=== PATIENT | female | born 1930 | race Caucasian/White ===

== ENCOUNTER 2016-09-11 22:23 | Inpatient (IN) | payer MEDICARE ==
[~2016-09-11] VITALS: Ht 152.4 cm; Wt 75.3 kg
[~2016-09-11 22:23] MED LIST: ACET500T33 PO; ALBU0.63 NEB; AMLO5TAB2 PO; AMLO5TAB4 PO; ASPI81TA2 PO; ASPI81TA44 PO; BUME1TAB PO; CALC500T50 PO; CEPH-264 PO; CIPR250T PO; CYCL10TA2 PO; CYCL5TAB PO; Cefpodoxime Proxetil PO; DIPH25CA58 PO; ERGO500012 PO; FURO-68 PO; FURO40TA4 PO; HUM100VI SQ; HUM100VI5 SQ; HYDR-2666 PO; HYDR-2762 PO; HYDR-971 PO; INSU100I16 SQ; ISOS30TA PO; ISOS30TA4 PO; LIDO700A4 TP; LISI10TA2 PO; MULT-245 PO; MULT-658 PO; NITR0.4T SL; NITR0.4T6 SL; NYST15CR2 TP; OMEG-32 PO; OMEG500C PO; OMEP20CA5 PO; OMEP40CA2 PO; POTA10CA PO; POTA10TA10 PO; PRAV20TA2 PO; PRAV40TA PO; Polyethylene Glycol 3350 PO; SERT25TA4 PO; TIOT18CA IH; [UNRECOGNIZED DRUG - OTHER]; insulin; lidocaine patch
[2016-09-11] MEDS ORDERED: IPRATRPIUM/ALBUTEROL 0.5/2.5MG 3 ML NEBU. NEB ONE (22:45)
--- NOTE | 2016-09-11 23:07 | PHYS DOC ---
Past Medical History Past Medical History: CHF, Diabetes-Type II, Hypertension Past Surgical History: Cholecystectomy, Coronary Bypass Surgery, Hysterectomy, Pacemaker, Other Additional Past Surgical Histo: bilateral carotids Alcohol Use: None Drug Use: Other Adult General Chief Complaint Chief Complaint: HYPOGLYCEMIA HPI HPI Patient is a 86 year old female who presents with hypoglycemia. Patient arrives via EMS after a hypoglycemic episode at home. Patient was significantly better after the amp of D50. Patient has recent problems with left lower extremity cellulitis. She's been on Bactrim for 6 days with minimal improvement of left lower leg cellulitis. Patient also has had increased respiratory distress over the last couple of days. She has a known history of lung cancer however she has had audible wheezing for the last day. Normally the patient does not require supplemental oxygen except for times of extreme exertion. For the last couple of days she's been wearing her supplemental oxygen 24 hours a day. Per the family the patient's sats approximately 84% while sitting in a chair she does not have oxygen on at 1 L nasal cannula. Patient denies any sort of fevers or chills. Pt had a recent fall and c/o right shoulder and right chestwall pain. Past history of congestive heart failure, lung cancer, diabetes , coronary artery disease and total abdominal hysterectomy. Review of Systems Review of Systems Constitutional: Denies fever or chills Eyes: Denies change in visual acuity, redness, or eye pain HENT: Denies nasal congestion or sore throat Respiratory: Positive cough and shortness of breath Cardiovascular: No chest pain or palpitations GI: Denies abdominal pain, nausea, vomiting, bloody stools or diarrhea : Denies dysuria or hematuria Musculoskeletal: Denies new back pain or joint pain Integument: Cellulitis left leg Neurologic: Denies headache, focal weakness or sensory changes Endocrine: Denies polyuria or polydipsia Current Medications Current Medications Current Medications Medications (Trade) Dose Ordered Sig/Leonard Start Time Stop Time Status Last Admin Dose Admin Albuterol/ Ipratropium (Duoneb) 3 ml PRN Q4HRS PRN 09/12/16 00:45 09/12/16 06:00 Albuterol/ Ipratropium 3 ml 3 ml 1X ONCE 09/11/16 22:45 09/11/16 22:46 DC 09/11/16 22:40 3 ML Levofloxacin/ Dextrose (LEVAQUIN 750mg PREMIX) 150 ml @ 100 mls/hr 1X ONCE 09/12/16 01:00 09/12/16 02:29 Allergies Allergies Allergies Coded Allergies Type Severity Reaction Last Updated Verified Penicillins Allergy Intermediate hives 08/10/15 Yes adhesive tape Allergy Intermediate Rash 12/15/15 Yes aspirin Adverse Reaction Intermediate bloody nose 12/15/15 Yes morphine Adverse Reaction Intermediate nausea and vomiting 08/10/15 No Physical Exam Physical Exam Constitutional: Well developed, well nourished, moderate acute distress, non- toxic appearance. HENT: Normocephalic, atraumatic, oropharynx dry, no oral exudates, nose normal. Eyes: PERRLA, EOMI, conjunctiva normal, no discharge. Neck: Normal range of motion, no tenderness, supple. Cardiovascular:Heart rate regular rhythm, no murmur Lungs & Thorax: Bilateral expiratory wheezing, no rales Abdomen: Bowel sounds hyperactive, soft, no tenderness, no masses, no pulsatile masses. Skin: Warm, dry, cellulitis left lower extremity Extremities: Left distal calf and foot tenderness, no cyanosis, 2+ left pedal edema. Neurologic: Alert and oriented X 3, normal motor function, normal sensory function, no focal deficits noted. Psychologic: Affect normal, judgement normal, mood normal. Current Patient Data Vital Signs Vital Signs Date Time Temp Pulse Resp B/P Pulse Ox O2 Delivery O2 Flow Rate FiO2 09/11/16 22:40 94 Nasal Cannula 2.0 09/11/16 22:30 97.7 75 27 176/76 97.7 Lab Values Laboratory Tests Test 09/11/16 23:03 09/11/16 23:05 Glucose (Fingerstick) 96mg/dL (70-99) White Blood Count 5.5x10^3/uL (4.0-11.0) Red Blood Count 3.67x10^6/uL (3.50-5.40) Hemoglobin 11.4g/dL (12.0-15.5) L Hematocrit 35.4% (36.0-47.0) L Mean Corpuscular Volume 97fL (79-100) Mean Corpuscular Hemoglobin 31pg (25-35) Mean Corpuscular Hemoglobin Concent 32g/dL (31-37) Red Cell Distribution Width 14.7% (11.5-14.5) H Platelet Count 116x10^3/uL (140-400) L Neutrophils (%) (Auto) 76% (31-73) H Lymphocytes (%) (Auto) 15% (24-48) L Monocytes (%) (Auto) 7% (0-9) Eosinophils (%) (Auto) 1% (0-3) Basophils (%) (Auto) 0% (0-3) Neutrophils # (Auto) 4.2x10^3uL (1.8-7.7) Lymphocytes # (Auto) 0.8x10^3/uL (1.0-4.8) L Monocytes # (Auto) 0.4x10^3/uL (0.0-1.1) Eosinophils # (Auto) 0.1x10^3/uL (0.0-0.7) Basophils # (Auto) 0.0x10^3/uL (0.0-0.2) D-Dimer (Salena) 1.73ug/mlFEU (0.00-0.50) H Sodium Level 142mmol/L (136-145) Potassium Level 5.6mmol/L (3.5-5.1) H Chloride Level 103mmol/L (98-107) Carbon Dioxide Level 29mmol/L (21-32) Anion Gap 10 (6-14) Blood Urea Nitrogen 41mg/dL (7-20) H Creatinine 1.8mg/dL (0.6-1.0) H Estimated GFR (Cockcroft-Gault) 26.6 BUN/Creatinine Ratio 23 (6-20) H Glucose Level 109mg/dL (70-99) H Lactic Acid Level 2.2mmol/L (0.4-2.0) H Calcium Level 9.1mg/dL (8.5-10.1) Total Bilirubin 0.5mg/dL (0.2-1.0) Aspartate Amino Transferase (AST) 31U/L (15-37) Alanine Aminotransferase (ALT) 14U/L (14-59) Alkaline Phosphatase 113U/L (46-116) Troponin I Quantitative 0.049ng/mL (0.000-0.055) BD-Icy-X-Type Natriuretic Peptide 6614pg/mL (0-449) H Total Protein 7.1g/dL (6.4-8.2) Albumin 3.3g/dL (3.4-5.0) L Albumin/Globulin Ratio 0.9 (1.0-1.7) L Laboratory Tests 09/11/16 23:05 Laboratory Tests 09/11/16 23:05 EKG EKG [] Radiology/Procedures Radiology/Procedures ??Right humoral head fracture[] Course & Med Decision Making Course & Med Decision Making Pertinent Labs and Imaging studies reviewed. (See chart for details) [] Dragon Disclaimer Dragon Disclaimer This electronic medical record was generated, in whole or in part, using a voice recognition dictation system. Departure Departure Impression: Primary Impression: Congestive heart failure Additional Impressions: Acute on chronic renal failure Cellulitis, leg Acute and chronic respiratory failure Hyperkalemia Hypoglycemia associated with diabetes Disposition: ADMITTED INPATIENT Admitting Physician: Griffin Schuler Condition: IMPROVED Referrals: GRIFFIN SCHULER MD (PCP) Problem Qualifiers Primary Impression: Congestive heart failure Congestive heart failure type: unspecified congestive heart failure type Congestive heart failure chronicity: acute on chronic Qualified Code: I50.9 - Heart failure, unspecified Additional Impressions: Cellulitis, leg Laterality: left Qualified Code: L03.116 - Cellulitis of left lower limb JAMIE VANCE MD Sep 11, 2016 23:07
[2016-09-11 23:20] LABS: BASO % 0 % (0-3); EOS % 1 % (0-3); HEMATOCRIT 35.4 % (36.0-47.0); HEMOGLOBIN 11.4 g/dL (12.0-15.5); LYMPH # 0.8 x10^3/uL (1.0-4.8); LYMPH % 15 % (24-48); MEAN CORPUSCULAR HEMOGLOBIN 31 pg (25-35); MEAN CORPUSCULAR HGB CONC 32 g/dL (31-37); MEAN CORPUSCULAR VOLUME 97 fL (79-100); MONO % 7 % (0-9); NEUT % 76 % (31-73); PLATELET COUNT 116 x10^3/uL (140-400); RED BLOOD COUNT 3.67 x10^6/uL (3.50-5.40); RED CELL DISTRIBUTION WIDTH 14.7 % (11.5-14.5); WHITE BLOOD COUNT 5.5 x10^3/uL (4.0-11.0)
[2016-09-11 23:30] LABS: CALCIUM 9.1 mg/dL (8.5-10.1); CREATININE 1.8 mg/dL (0.6-1.0); GFR 26.6; POTASSIUM 5.6 mmol/L (3.5-5.1)
[2016-09-11 23:37] LABS: ALBUMIN 3.3 g/dL (3.4-5.0); ALBUMIN/GLOBULIN RATIO 0.9 (1.0-1.7); TOTAL BILIRUBIN 0.5 mg/dL (0.2-1.0); TOTAL PROTEIN 7.1 g/dL (6.4-8.2)
[2016-09-12] VITALS (8 sets, daily range): BP systolic 80–136; BP diastolic 17–70
[2016-09-12] MEDS ORDERED: IPRATRPIUM/ALBUTEROL 0.5/2.5MG 3 ML NEBU. NEB PRN (00:45)
[2016-09-12] MEDS ORDERED: IPRATRPIUM/ALBUTEROL 0.5/2.5MG 3 ML NEBU. NEB ONE (01:30)
[2016-09-12] MEDS ORDERED: HYDROCODONE/APAP 5/325MG TABLET. PO ONE (01:30)
[2016-09-12] MEDS ORDERED: ALBUTEROL SULFATE 2.5 MG/3 ML NEBU. NEB PRN (02:00)
--- NOTE | 2016-09-12 02:20 | ACF ---
Admission Forms Criteria HEART FAILURE Clinical Indications for Admission to Inpatient Care (Place 'X' for any and all applicable criteria): Admission is indicated by ANY ONE of the following(1)(2)(3)(4): [ ]I. Severe electrolyte abnormalities requiring inpatient care(9) [ ]II. Hemodynamic instability [ ]III. Anasarca [ ]IV. Acute cardiac ischemia causing or associated with failure (Also use Angina or Myocardial Infarction as appropriate) [ ]V. Cardiac arrhythmias of immediate concern [ ]. Precipitating cause for acute decompensation (eg, pneumonia, pulmonary embolism) requires inpatient care [ ]VII. Pulmonary edema that is very severe (eg, mechanical ventilation needed, imminent or likely, need for 100% oxygen to keep oxygen saturation above 90%) [X]VIII. Inpatient admission required rather than observation care (Also use Heart Failure: Observation Care as appropriate) because of ANY ONE of the following: [ ]a) Pulmonary edema that is severe or worsening as indicated by ALL of the following: [ ]i) New need for oxygen therapy to keep oxygen saturation above 90% (or increased FiO2 need from baseline) [ ]ii) Has not improved sufficiently with emergency department or observation care IV diuretics or other heart failure treatments[C] [ ]b) Cognitive impairment that is severe or persistent [ ]c) Increased creatinine (new on laboratory test) with reduction of more than 50% in estimated glomerular filtration rate from baseline. [ ]d) Acute renal insufficiency (progressively (ongoing) rising creatinine (known from past laboratory test) with reduction of more than 25% in estimated glomerular filtration rate from baseline) [ ]e) Acute peripheral ischemia (eg, pulseless, cool, mottled, or cyanotic extremity) [X]f) Acute renal failure [ ]g) Supplemental O2 or respiratory treatment for >24 hr that are performable only in acute inpatient setting [ ]h) Pulmonary artery catheter monitoring [ ]i) Other condition, treatment or monitoring requiring inpatient admission [ ]IX. Contraindications and/or Inappropriate clinical situations for Observational Care in patients with Heart Failure, when ANY ONE of the following is required: [ ]a) Patient with High risk of cardiac embolism (e.g, patients with previous cardiac embolism, LVEF < 40%, age >75 and patients with prosthetic valve) 18 [ ]b) Patient with Moderate risk including DM patient, CAD and patient aged 65-75 [ ]c) Patient with any change in cardiac biomarker especially troponin should be managed as high risk in an inpatient setting 19 [ ]d) Physician judgement irrespective of ECG and other diagnostic findings 20 [ ]e) Patients with hyponatremia have high risk for mortality and require more extensive care and length of stay 21 [ ]f) Need for large volume diuresis 21 [ ]g) Presence of renal insufficiency or hypotension limiting speed of diuresis 21 [ ]h) Acute cardiac Ischemia in the elderly 21 [ ]i) Patients with a 30 day risk of mortality based on a multidimensional prognostic index (MPI) [J,]21 [ ]X. General contraindications and/or Inappropriate clinical situations for Observational Care in patients with Heart Failure, when ANY ONE of the following is required: [ ]a) Prediction of prolongation of LOS based on ANY ONE of the following may be considered as a contraindication for observational care 2, 3, 4, 5, 6, 7, 8 , 9, 10, 11 [ ]i) Age > 65 yrs. [ ]ii) Patient arriving by ambulance [ ]iii) Patient with high acuity [ ]iv) Patient requiring vital sign monitoring [ ]v) Patient on IV medication [ ]b) Systolic blood pressures 180mmHg 3,12 [ ]c) Patient with altered mental status including delirium and other alteration of consciousness, (3) [ ]d) Patient whose discharge disposition will be to a alf home or rehabilitation home should not be managed in Emergency Department Observation Unit. CMS rule requires 3 days hospital stay before such placement.3,13 [ ]e) Patient with failure to thrive due to broad array of etiologies 3,16,17 [ ]f) Inability to ambulate 3,14 Extended stay beyond goal length of stay may be needed for(1)(3)(21)(25): [ ]a) Cardiac ischemia, confirmed or suspected as precipitant [ ]b) Cardiogenic shock or refractory pulmonary edema [ ]c) Acute kidney injury or renal failure [ ]d) Respiratory failure (eg, need for noninvasive or invasive mechanical ventilation) (23) [ ]e) Concomitant pneumonia or significant electrolyte abnormality (eg, severe hyponatremia) [ ]f) Newly diagnosed (new onset) atrial fibrillation [ ]g) Stage IV chronic kidney disease (estimated glomerular filtration rate of less than 30 mL/min/1.73m2 (0.50 mL/sec/1.73m2), and not previously on chronic dialysis The original [facility] content created by [facility] has been revised. The portions of the content which have been revised are identified through the use of italic text or in bold, and [facility] has neither reviewed nor approved the modified material. All other unmodified content is copyright [facility]. Please see references footnoted in the original [facility] edition 2016 Admission Criteria Met?: Yes RADHA ROSS Sep 12, 2016 02:20
--- NOTE | 2016-09-12 03:36 | RAD ---
Examination: V/Q scan. HISTORY History of shortness of breath, elevated D-dimer. COMPARISON None available. Findings: Ventilation scan was performed of administration of 10 millicurie of xenon 133 inhalation. Perfusion scan was performed after adminstration of 5 millicuries of technetium-99m MAA IV. Gamma cameraimages were performed. There is no evidence of segmental mismatch identified. There is focal decreased radiotracer uptake identified in the right upper lobe of the lung seen on the lateral view is most likely artifactual as no evidence of decreased radiotracer uptake identified on the right anterior oblique or right posterior oblique views. IMPRESSION 1. Low probability for pulmonary embolism. 2. Decreased radiotracer uptake identified in the right upper lobe of the lung seen only on the lateral view most likely artifact. Recommend ultrasound bilateral lower extremity venous duplex. Electronically signed by: Matthias Alvarado (Sep 12, 2016 03:35:07)
[2016-09-12] MEDS ORDERED: DEXTROSE 50% 25 GM / 50ML DISP.SYRIN. IV PRN (03:45)
[2016-09-12] MEDS ORDERED: SULF1TAB23 PO (04:13)
[2016-09-12] MEDS: HYDROCODONE/APAP 7.5/325MG TABLET. PO PRN ×2 (04:22→10:55)
--- NOTE | 2016-09-12 04:29 | RAD ---
Examination: Single frontal view chest. HISTORY History of shortness of breath. COMPARISON None available Findings: Left-sided cardiac pacer is identified. In one of the pacing leads ,at the level of left scapula, there is lucency identified which could be a small discontinuity in the pacing lead. Mild cardiomegaly. Median sternotomy wires identified. Moderate prominent appearing bilateral interstitial lung markings likely congestive changes. Trace left pleural effusion. IMPRESSION 1. Moderate prominent appearing bilateral interstitial lung markings likely moderate congestive changes. Trace left pleural effusion. 2. There is subtle lucency identified in one of the pacing leads laterally at the level of the left scapula which could be discontinuity in the pacer lead. Correlate clinically , correlate with prior exam. Electronically signed by: Matthias Alvarado (Sep 12, 2016 04:27:47)
--- NOTE | 2016-09-12 06:54 | EKG ---
[facility] [address] [place] [address] Test Date: 2016-09-11 Test Time: 23:18:48 Pat Name: GERARDO ACUNA Department: Room: 534 1 Gender: F [employer]ill Machine Tender: : 1930 Requested By: JAMIE VANCE Order Number: [id number] Reading MD: Soham Merida Measurements Intervals [place] Rate: 76 P: [place]: QRS: -111 QRSD: 162 T: 100 QT: 466 QTc: 530 Interpretive Statements ATRIAL FIBRILLATION WITH CONTROLLED VENTRICULAR RESPONSE DEMAND V-PACING Electronically Signed On 09-12-2016 14:05:04 COMMUNICATION EQUIPMENT MECHANIC by Soham Merida
--- NOTE | 2016-09-12 07:22 | RAD ---
Indication: Right shoulder pain. Time of exam 2355 hours. 3 views of the right shoulder demonstrate severe glenohumeral joint degenerative change. There is complete loss of the joint space. Large osteophytes at the humeral head neck junction are noted. The acromiohumeral clavicular alignment is normal. No fractures are identified. 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 No acute fracture is seen.
[2016-09-12] MEDS ORDERED: HYDROCODONE/APAP 7.5/325MG TABLET. PO PRN (07:45)
[2016-09-12] MEDS: INSULIN ASPART 300 UNITS/3 ML INSULN.PEN SQ SCH ×3 (08:00→17:00)
[2016-09-12] MEDS ORDERED: CYCLOBENZAPRINE 10 MG TABLET. PO PRN (08:00)
[2016-09-12 08:02] LABS: BASO % 0 % (0-3); EOS % 1 % (0-3); HEMATOCRIT 32.6 % (36.0-47.0); HEMOGLOBIN 10.4 g/dL (12.0-15.5); LYMPH # 0.8 x10^3/uL (1.0-4.8); LYMPH % 16 % (24-48); MEAN CORPUSCULAR HEMOGLOBIN 31 pg (25-35); MEAN CORPUSCULAR HGB CONC 32 g/dL (31-37); MEAN CORPUSCULAR VOLUME 96 fL (79-100); MONO % 8 % (0-9); NEUT % 75 % (31-73); PLATELET COUNT 106 x10^3/uL (140-400); RED CELL DISTRIBUTION WIDTH 14.3 % (11.5-14.5); WHITE BLOOD COUNT 5.1 x10^3/uL (4.0-11.0)
[2016-09-12 08:09] LABS: CALCIUM 8.7 mg/dL (8.5-10.1); CREATININE 1.8 mg/dL (0.6-1.0); GFR 26.6; POTASSIUM 5.9 mmol/L (3.5-5.1)
[2016-09-12] MEDS: MULTIVITAMIN with MINERAL TABLET. PO SCH (08:19)
[2016-09-12] MEDS: OMEGA-3 FATTY ACIDS/FISH OIL 1,000 MG CAPSULE. PO SCH (08:19)
[2016-09-12] MEDS: ASPIRIN 81 MG TAB.CHEW PO SCH (08:19)
[2016-09-12] MEDS: SERTRALINE 25 MG TABLET. PO SCH (08:19)
[2016-09-12] MEDS: PANTOPRAZOLE 40 MG TABLET. PO SCH (08:19)
--- NOTE | 2016-09-12 08:26 | PDOC ---
Provider Note Provider Note See admission H&P dictation #[id number] Impression: 1. Acute on chronic respiratory failure, probably multifactorial: 2. Acute on chronic congestive heart failure: 3. Acute renal failure on chronic kidney disease: 4. Cellulitis, lower extremities: 5. Hyperkalemia: 6. Diabetes mellitus type 2: 7. Possible pacer lead disruption with subtle lucency noted on chest x-ray: JAIRON EPSTEIN MD Sep 12, 2016 08:26
[2016-09-12] MEDS ORDERED: VANCOMYCIN 1.75 GM in IV NORMAL SALINE 500ML BAG 500 ML IV ONE (08:30)
[2016-09-12] MEDS ORDERED: LISINOPRIL 10 MG TABLET PO SCH (09:00)
[2016-09-12] MEDS: IPRATRPIUM/ALBUTEROL 0.5/2.5MG 3 ML NEBU. NEB SCH ×4 (09:09→19:45)
--- NOTE | 2016-09-12 09:21 | RAD ---
Indication: Elevated d-dimer as well as bilateral lower extremity edema. Jules scale, color flow and duplex Doppler evaluation of both lower extremity deep venous systems was performed. FINDINGS: There is no evidence of right or left lower extremity DVT. Both lower extremity deep venous systems showed normal compressibility with normal response to augmentation and Valsalva. No fluid collection or mass is detected. IMPRESSION: No evidence of right or left lower extremity DVT.
--- NOTE | 2016-09-12 09:51 | PDOC2 ---
CONSULT Date of Consult Date of Consult DATE: 09/12/16 TIME: 09:41 Reason for Consult Reason for Consult: CHF Referring Physician Referring Physician: Dr. Schuler Identification/Chief Complaint Chief Complaint SOB Source Source: Chart review, Patient History of Present Illness Reason for Visit: 86 year old white female. A&Ox3, cooperative. Hearing impaired. Presents to hospital with 4 days of shortness of breath. States that this past weekend, felt short of air and had to use home O2. Went to bathroom and could only walk a short distance before she was out of breath. States it became so bad that she could not breath without continuos oxygen. Denies having chest pain. Did notice that her legs and hands began swelling up and hurting as well. Past Medical History Cardiovascular: CHF, HTN Heme/Onc: Cancer (Lung and uterine) Musculoskeletal: Weakness, Swelling, Stiffness, Other (back pain) Endocrine: Diabetes Grav: 6 Para: 6 Past Surgical History Past Surgical History States she has had 14 surgeries total, but can not remember them all Past Surgical History: Pacemaker, Appendectomy, CABG (x4), Hysterectomy ( partial) Social History ALCOHOL: none Current Problem List Problem List Problems Medical Problems: (1) Acute and chronic respiratory failure Status: Acute (2) Acute on chronic renal failure Status: Acute (3) Congestive heart failure Status: Acute (4) Hyperkalemia Status: Acute (5) Hypoglycemia associated with diabetes Status: Acute Current Medications Current Medications Current Medications Albuterol/ Ipratropium 3 ml 3 ml 1X ONCE NEB Last administered on 09/11/16 22 :40; Start 09/11/16 at 22:45; Stop 09/11/16 at 22:46; Status DC Levofloxacin/ Dextrose (LEVAQUIN 750mg PREMIX) 150 ml @ 100 mls/hr 1X ONCE IV Last administered on 09/12/16 04:27; Start 09/12/16 at 01:00; Stop 09/12/16 at 02:29; Status DC Albuterol/ Ipratropium (Duoneb) 3 ml PRN Q4HRS PRN NEB SOA; Start 09/12/16 at 00:45; Stop 09/12/16 at 06:00; Status DC Albuterol/ Ipratropium (Duoneb) 3 ml 1X ONCE NEB Last administered on 01:49; Start 09/12/16 at 01:30; Stop 09/12/16 at 01:31; Status DC Acetaminophen/ Hydrocodone Bitart (Lortab 5/325) 1 tab 1X ONCE PO ; Start 09/12 at 01:30; Stop 09/12/16 at 01:31; Status DC Albuterol Sulfate (Ventolin Neb Soln) 2.5 mg PRN Q4HRS PRN NEB SHORTNESS OF BREATH; Start 09/12/16 at 02:00; Stop 09/13/16 at 01:59 Acetaminophen/ Hydrocodone Bitart (Lortab 7.5/325) 1 tab PRN Q6HRS PRN PO MODERATE PAIN Last administered on 09/12/16 04:22; Start 09/12/16 at 03:45 Insulin Aspart (Novolog) 0-5 UNITS TIDWMEALS SQ ; Start 09/12/16 at 08:00 Dextrose 12.5 gm PRN Q15MIN PRN IV SEE COMMENTS; Start 09/12/16 at 03:45 Vancomycin HCl (Vanco Per Pharmacy) 1 each PRN DAILY PRN MC SEE COMMENTS; Start 09/12/16 at 07:45 Albuterol/ Ipratropium (Duoneb) 3 ml RTQID NEB Last administered on 09/12/16 09:09; Start 09/12/16 at 08:00 Aspirin (Children'S Aspirin) 81 mg DAILY PO Last administered on 09/12/16 08: 19; Start 09/12/16 at 09:00 Bumetanide (Bumex) 1 mg NOON PO ; Start 09/12/16 at 12:00 Diphenhydramine HCl (Benadryl) 25 mg HS PO ; Start 09/12/16 at 21:00 Acetaminophen/ Hydrocodone Bitart (Lortab 7.5/325) 1 tab PRN QHS PRN PO PAIN; Start 09/12/16 at 07:45 Isosorbide Mononitrate (Imdur) 30 mg DAILY16 PO ; Start 09/12/16 at 16:00 Lisinopril (Prinivil) 10 mg DAILY PO ; Start 09/12/16 at 09:00 Sertraline HCl (Zoloft) 25 mg DAILY PO Last administered on 09/12/16 08:19; Start 09/12/16 at 09:00 Cyclobenzaprine HCl (Flexeril) 10 mg PRN TID PRN PO MUSCLE SPASMS; Start at 08:00 Multivitamins/ Calcium (Thera M Plus) 1 tab DAILY PO Last administered on 08:19; Start 09/12/16 at 09:00 Fish Oil (Fish Oil) 1,000 mg DAILY PO Last administered on 09/12/16 08:19; Start 09/12/16 at 09:00 Pantoprazole Sodium (Protonix) 40 mg DAILYAC PO Last administered on 09/12/16 08:19; Start 09/12/16 at 08:00 Atorvastatin Calcium 10 mg 10 mg QHS PO ; Start 09/12/16 at 21:00 Vancomycin HCl/ Sodium Chloride (Iv Sodium Chloride 0.9% 500ml Bag) 500 ml @ 250 mls/hr 1X ONCE IV Last administered on 09/12/16 08:19; Start 09/12/16 at 08:30; Stop 09/12/16 at 10:29 Active Scripts Active Sertraline Hcl 25 Mg Tablet 25 Mg PO DAILY Reported Bactrim 400-80 Mg Tablet (Sulfamethoxazole/Trimethoprim) 1 Each Tablet 1 Tab PO BID Bactrim 400-80 Mg Tablet (Sulfamethoxazole/Trimethoprim) 1 Each Tablet 1 Tab PO BID Bumetanide 1 Mg Tablet 1 Tab PO NOON Humulin 70-30 Vial (Hum Insulin Nph/Reg Insulin Hm) 100 Unit/1 Ml Vial 15 Unit SQ BIDAC Hydrocodone-Apap 7.5-325 (Hydrocodone Bit/Acetaminophen) 1 Each Tablet 1 Tab PO HS PRN Vitamin D2 (Ergocalciferol (Vitamin D2)) 50,000 Unit Capsule 50,000 Unit PO WEEKLY NEXT DOSE: PER USUAL TIME Prilosec (Omeprazole) 20 Mg Capsule.dr 1 Cap PO BID [place]-3 1,000 Mg Softgel ([place]-3 Fatty Acids/Fish Oil) 1 Each Capsule 1 Each PO DAILY Centrum Silver Tablet (Multivits-Min/Fa/Lycopene/Lut) 1 Each Tablet 1 Each PO DAILY Cyclobenzaprine Hcl 5 Mg Tablet 10 Mg PO TID PRN NEXT DOSE: WHEN NEEDED Benadryl (Diphenhydramine Hcl) 25 Mg Capsule 25 Mg PO HS Pravachol (Pravastatin Sodium) 40 Mg Tablet 40 Mg PO DAILY Potassium Chloride 10 Meq Capsule.er 10 Meq PO DAILY Lisinopril 10 Mg Tablet 10 Mg PO DAILY Imdur (Isosorbide Mononitrate) 30 Mg Tab.er.24h 30 Mg PO DAILY16 Children's Aspirin (Aspirin) 81 Mg Tab.chew 81 Mg PO DAILY Allergies Allergies: Coded Allergies: Penicillins (Verified Allergy, Intermediate, hives, 08/10/15) adhesive tape (Verified Allergy, Intermediate, Rash, 12/15/15) aspirin (Verified Adverse Reaction, Intermediate, bloody nose, 12/15/15) pt states she will not take aspirin greater than 81mg due to hx of bloody noses morphine (Unverified Adverse Reaction, Intermediate, nausea and vomiting, 08/10/15) Physical Exam General: Alert, Oriented X3, Cooperative, mild distress Lungs: Clear to auscultation, Other (wheezing with inspiration) Heart: Regular rate, Normal S1, Normal S2, No murmurs Abdomen: Normal bowel sounds, Soft, No tenderness, No hepatosplenomegaly, No masses Extremities: Other (1+ edema bilat LE, painful woth palpation) Skin: Other (cellulitis left LE) Vitals VITALS Vital Signs Date Time Temp Pulse Resp B/P Pulse Ox O2 Delivery O2 Flow Rate FiO2 09/12/16 09:09 96 Nasal Cannula 2.0 09/12/16 07:00 97.5 70 23 130/17 97.5 Labs Labs Laboratory Tests Test 09/11/16 23:03 09/11/16 23:05 09/12/16 05:27 09/12/16 07:48 Glucose (Fingerstick) 96mg/dL (70-99) 67mg/dL (70-99) White Blood Count 5.5x10^3/uL (4.0-11.0) 5.1x10^3/uL (4.0-11.0) Red Blood Count 3.67x10^6/uL (3.50-5.40) 3.40x10^6/uL (3.50-5.40) Hemoglobin 11.4g/dL (12.0-15.5) 10.4g/dL (12.0-15.5) Hematocrit 35.4% (36.0-47.0) 32.6% (36.0-47.0) Mean Corpuscular Volume 97fL (79-100) 96fL (79-100) Mean Corpuscular Hemoglobin 31pg (25-35) 31pg (25-35) Mean Corpuscular Hemoglobin Concent 32g/dL (31-37) 32g/dL (31-37) Red Cell Distribution Width 14.7% (11.5-14.5) 14.3% (11.5-14.5) Platelet Count 116x10^3/uL (140-400) 106x10^3/uL (140-400) Neutrophils (%) (Auto) 76% (31-73) 75% (31-73) Lymphocytes (%) (Auto) 15% (24-48) 16% (24-48) Monocytes (%) (Auto) 7% (0-9) 8% (0-9) Eosinophils (%) (Auto) 1% (0-3) 1% (0-3) Basophils (%) (Auto) 0% (0-3) 0% (0-3) Neutrophils # (Auto) 4.2x10^3uL (1.8-7.7) 3.8x10^3uL (1.8-7.7) Lymphocytes # (Auto) 0.8x10^3/uL (1.0-4.8) 0.8x10^3/uL (1.0-4.8) Monocytes # (Auto) 0.4x10^3/uL (0.0-1.1) 0.4x10^3/uL (0.0-1.1) Eosinophils # (Auto) 0.1x10^3/uL (0.0-0.7) 0.1x10^3/uL (0.0-0.7) Basophils # (Auto) 0.0x10^3/uL (0.0-0.2) 0.0x10^3/uL (0.0-0.2) D-Dimer (Salena) 1.73ug/mlFEU (0.00-0.50) Sodium Level 142mmol/L (136-145) 141mmol/L (136-145) Potassium Level 5.6mmol/L (3.5-5.1) 5.9mmol/L (3.5-5.1) Chloride Level 103mmol/L (98-107) 105mmol/L (98-107) Carbon Dioxide Level 29mmol/L (21-32) 28mmol/L (21-32) Anion Gap 10 (6-14) 8 (6-14) Blood Urea Nitrogen 41mg/dL (7-20) 41mg/dL (7-20) Creatinine 1.8mg/dL (0.6-1.0) 1.8mg/dL (0.6-1.0) Estimated GFR (Cockcroft-Gault) 26.6 26.6 BUN/Creatinine Ratio 23 (6-20) Glucose Level 109mg/dL (70-99) 93mg/dL (70-99) Lactic Acid Level 2.2mmol/L (0.4-2.0) 1.4mmol/L (0.4-2.0) Calcium Level 9.1mg/dL (8.5-10.1) 8.7mg/dL (8.5-10.1) Total Bilirubin 0.5mg/dL (0.2-1.0) Aspartate Amino Transf (AST/SGOT) 31U/L (15-37) Alanine Aminotransferase (ALT/SGPT) 14U/L (14-59) Alkaline Phosphatase 113U/L (46-116) Troponin I Quantitative 0.049ng/mL (0.000-0.055) 0.095ng/mL (0.000-0.055) HU-Jez-Q-Type Natriuretic Peptide 6614pg/mL (0-449) Total Protein 7.1g/dL (6.4-8.2) Albumin 3.3g/dL (3.4-5.0) Albumin/Globulin Ratio 0.9 (1.0-1.7) Test 09/12/16 07:52 Glucose (Fingerstick) 91mg/dL (70-99) Laboratory Tests Test 09/11/16 23:03 09/11/16 23:05 09/12/16 05:27 09/12/16 07:48 Glucose (Fingerstick) 96mg/dL (70-99) 67mg/dL (70-99) White Blood Count 5.5x10^3/uL (4.0-11.0) 5.1x10^3/uL (4.0-11.0) Red Blood Count 3.67x10^6/uL (3.50-5.40) 3.40x10^6/uL (3.50-5.40) Hemoglobin 11.4g/dL (12.0-15.5) 10.4g/dL (12.0-15.5) Hematocrit 35.4% (36.0-47.0) 32.6% (36.0-47.0) Mean Corpuscular Volume 97fL (79-100) 96fL (79-100) Mean Corpuscular Hemoglobin 31pg (25-35) 31pg (25-35) Mean Corpuscular Hemoglobin Concent 32g/dL (31-37) 32g/dL (31-37) Red Cell Distribution Width 14.7% (11.5-14.5) 14.3% (11.5-14.5) Platelet Count 116x10^3/uL (140-400) 106x10^3/uL (140-400) Neutrophils (%) (Auto) 76% (31-73) 75% (31-73) Lymphocytes (%) (Auto) 15% (24-48) 16% (24-48) Monocytes (%) (Auto) 7% (0-9) 8% (0-9) Eosinophils (%) (Auto) 1% (0-3) 1% (0-3) Basophils (%) (Auto) 0% (0-3) 0% (0-3) Neutrophils # (Auto) 4.2x10^3uL (1.8-7.7) 3.8x10^3uL (1.8-7.7) Lymphocytes # (Auto) 0.8x10^3/uL (1.0-4.8) 0.8x10^3/uL (1.0-4.8) Monocytes # (Auto) 0.4x10^3/uL (0.0-1.1) 0.4x10^3/uL (0.0-1.1) Eosinophils # (Auto) 0.1x10^3/uL (0.0-0.7) 0.1x10^3/uL (0.0-0.7) Basophils # (Auto) 0.0x10^3/uL (0.0-0.2) 0.0x10^3/uL (0.0-0.2) D-Dimer ([place]) 1.73ug/mlFEU (0.00-0.50) Sodium Level 142mmol/L (136-145) 141mmol/L (136-145) Potassium Level 5.6mmol/L (3.5-5.1) 5.9mmol/L (3.5-5.1) Chloride Level 103mmol/L (98-107) 105mmol/L (98-107) Carbon Dioxide Level 29mmol/L (21-32) 28mmol/L (21-32) Anion Gap 10 (6-14) 8 (6-14) Blood Urea Nitrogen 41mg/dL (7-20) 41mg/dL (7-20) Creatinine 1.8mg/dL (0.6-1.0) 1.8mg/dL (0.6-1.0) Estimated GFR (Cockcroft-Gault) 26.6 26.6 BUN/Creatinine Ratio 23 (6-20) Glucose Level 109mg/dL (70-99) 93mg/dL (70-99) Lactic Acid Level 2.2mmol/L (0.4-2.0) 1.4mmol/L (0.4-2.0) Calcium Level 9.1mg/dL (8.5-10.1) 8.7mg/dL (8.5-10.1) Total Bilirubin 0.5mg/dL (0.2-1.0) Aspartate Amino Transf (AST/SGOT) 31U/L (15-37) Alanine Aminotransferase (ALT/SGPT) 14U/L (14-59) Alkaline Phosphatase 113U/L (46-116) Troponin I Quantitative 0.049ng/mL (0.000-0.055) 0.095ng/mL (0.000-0.055) II-Bes-B-Type Natriuretic Peptide 6614pg/mL (0-449) Total Protein 7.1g/dL (6.4-8.2) Albumin 3.3g/dL (3.4-5.0) Albumin/Globulin Ratio 0.9 (1.0-1.7) Test 1/24/17 07:52 Glucose (Fingerstick) 91mg/dL (70-99) Assessment/Plan Assessment/Plan Cellulitis of the leg: agree with antibiotics CHF: acute on chronic secondary to diastolic dysfunction and valvular disease Monitor I&O Monitor Vital signs Consider lasix to decrease swelling and improve breathing Consider Echo to evaluate heart structures Thank you for asking me to participate in the care of this pt. CELSA JAVIER MD Sep 12, 2016 09:51
[2016-09-12 10:48] LABS: BILIRUBIN,URINE NEGATIVE (NEG); GLUCOSE,URINE NEGATIVE (NEG); NITRITE,URINE NEGATIVE (NEG); PH,URINE 5.5; PROTEIN,URINE NEGATIVE (NEG-TRACE)
[2016-09-12 11:03] LABS: BACTERIA,URINE 0 /HPF (0-FEW); RBC,URINE 0 /HPF (0-2); SQUAMOUS EPITHELIAL CELL,UR FEW /LPF; WBC,URINE OCC /HPF (0-4)
--- NOTE | 2016-09-12 11:29 | PDOC ---
Provider Note Provider Note dictated SETH MULLINS MD Sep 12, 2016 11:29
[2016-09-12] MEDS ORDERED: FUROSEMIDE 40 MG/4 ML VIAL IVP ONE (11:30)
--- NOTE | 2016-09-12 12:49 | RAD ---
Indication: Congestive heart failure. Axial imaging through the chest was performed without contrast. Comparison is made with prior CT chest from 04/16/2014. Changes of median sternotomy are noted. The heart is enlarged. Coronary arterial calcifications are noted. There is marked atherosclerotic calcifications throughout the thoracic aorta. No pericardial effusion is seen. There are moderate pleural effusions bilaterally layering dependently. No loculated effusion is detected. Parenchymal evaluation demonstrates a spiculated density in the right upper lobe measuring 18 mm. This compares with [address] and is suspicious for a neoplastic process. No other parenchymal mass is seen. There is compressive atelectasis in both lower lobes from pleural effusions. No axillary lymphadenopathy is identified. Hilar and mediastinal evaluation is limited without intravenous contrast. The upper abdomen is unremarkable. Impression: 1. Cardiomegaly with moderate bilateral pleural effusions and bibasilar atelectasis. 2. Increase in size of spiculated mass in the right upper lobe since exam from April 08, 2014. This remains highly suspicious for neoplasm. PQRS Compliance Statement: One or more of the following individualized dose reduction techniques were utilized for this examination: 1. Automated exposure control 2. Adjustment of the mA and/or kV according to patient size 3. Use of iterative reconstruction technique
[2016-09-12] MEDS: BUMETANIDE 1 MG TABLET PO SCH (14:20)
[2016-09-12] MEDS: VANCOMYCIN PER PHARMACY MC PRN (14:56)
--- NOTE | 2016-09-12 15:30 | CONS ---
DATE OF CONSULTATION: ATTENDING PHYSICIAN: Dr. Schuler. REASON FOR CONSULTATION: Hypoxia, dyspnea. HISTORY OF PRESENT ILLNESS: The patient is an 86-year-old female who has history of congestive heart failure. She has history of hypertension. She was brought into the hospital after she was noted to be increasingly dyspneic. The patient had lower extremity swelling and erythema. She was treated with Bactrim for left lower extremity cellulitis. She has also been having some hypoglycemic episodes. She has a known history of lung cancer. The patient had a last PET scan on 03/09/2016, which showed enlarging hypermetabolic right upper lobe nodule suggesting primary lung malignancy. There was also hypermetabolic subcutaneous abdominal anterior wall mass suggesting malignancy. I do not have details of the biopsy. At that time, she was treated with radiation treatment. I noticed the patient's chest x-ray and it shows that she has developed bilateral interstitial infiltrates. Her last echo was from 2013 and at that time, she had an EF of 45%. She had moderate mitral regurgitation as well. The patient underwent VQ scan, which was of low probability for thromboembolic disease. She also had venous Dopplers of lower extremities, which was negative for DVT. Consultation requested for further evaluation and management. PAST MEDICAL HISTORY: Significant for history of hypertension, history of type 2 diabetes, CHF. PAST SURGICAL HISTORY: Cholecystectomy, coronary artery bypass, hysterectomy, and pacemaker. History of bilateral carotid surgery. ALLERGIES: PENICILLIN, ASPIRIN and MORPHINE. MEDICATIONS: All reviewed as listed in the MRAD. SOCIAL HISTORY: She smoked for 30 years before quitting. PHYSICAL EXAMINATION: VITAL SIGNS: Shows a blood pressure of 130/34. Pulse ox 96% on 2 liters, afebrile. HEENT: Sclerae nonicteric. NECK: Supple. LUNGS: With crackles at the bases. CARDIOVASCULAR: Regular rate and rhythm. ABDOMEN: Soft. EXTREMITIES: With edema and erythema. LABORATORY DATA: Reviewed. White cell count 5.1, hemoglobin 10.4, platelets are 106. BUN 41 and a creatinine of 1.8. Troponin is 0.095. IMPRESSION: 1. Dyspnea with acute hypoxic respiratory failure with bilateral interstitial infiltrates. I suspect that this is secondary to [id number] systolic and diastolic heart failure/ MR. We will obtain noncontrast CT chest to better assess for interstitial infiltrates. 2. 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 Status post radiation. Details of which are not available. We will obtain oncology records. 3. History of tobacco use, suspect underlying chronic obstructive pulmonary disease. 4. Renal insufficiency. 5. Increased troponin levels. RECOMMENDATIONS: 1. Would continue with present oxygen. 2. Diuresis. 3. Obtain noncontrast CT chest. 4. Repeat echocardiogram to assess for LV function. 5. Bronchodilators. 6. Treatment of cellulitis per primary care. 7. We will obtain records from Oncology regarding history of lung cancer. 8. We will follow along with you. SETH MULLINS MD DR: [id number]/krzysztof JOB#: [id number] / [id number] JACY
[2016-09-12] MEDS: ISOSORBIDE MONONITRATE ER 30 MG TAB.ER.24H PO SCH (16:00)
--- NOTE | 2016-09-12 17:43 | CARD ---
APPROVED REPORT EXAM: Two-dimensional and M-mode echocardiogram with Doppler and color Doppler. Other Information Quality : LimitedHR: 72bpm Rhythm : PacemakerTechnically limited study due to positioning limitations of the patient. INDICATION Congenital Heart Disease 2D DIMENSIONS RVDd2.4 (2.9-3.5cm)Left Atrium(2D)4.7 (1.6-4.0cm) IVSd1.3 (0.7-1.1cm)Aortic Root(2D)2.3 (2.0-3.7cm) LVDd4.2 (3.9-5.9cm)LVOT Diameter2.0 (1.8-2.4cm) PWd1.1 (0.7-1.1cm)LVDs2.6 (2.5-4.0cm) FS (%) 38.4 %SV54.2 ml LVEF(%)65.0 (>50%) Aortic Valve AoV Peak Roger.157.2cm/sAoV VTI34.1cm AO Peak GR.9.9mmHgLVOT Peak Roger.88.0cm/s AO Mean GR.6mmHgAVA (VMAX)1.79cm2 Mitral Valve MV E Peak Gr.28mmHgMV E Mean Gr.7mmHg Pulmonary Valve PV Peak Rcquuxnz92.2cm/s Tricuspid Valve TR P. [id number]/sRAP [id number] TR Peak Gr.[id number] LEFT VENTRICLE The left ventricle is normal size. There is mild concentric left ventricular hypertrophy. The Ejectio n Fraction is 65%. There is normal LV segmental wall motion. Unable to assess left ventricular diasto lic function due to mitral stenosis. RIGHT VENTRICLE The right ventricle is normal size. There is normal right ventricular wall thickness. The right ventr icular systolic function is normal. There is a pacemaker lead in the right ventricle. ATRIA The left atrium is severely dilated. The right atrium is moderately dilated. The interatrial septum i s intact with no evidence for an atrial septal defect or patent foramen ovale as noted on 2-D or Dopp ler imaging. AORTIC VALVE The aortic valve is moderately sclerotic. Doppler and Color Flow revealed no significant aortic regur gitation. There is no significant aortic valvular stenosis. MITRAL VALVE Mitral annular calcification is severe. The mitral valve leaflets are calcified. There is no evidence of mitral valve prolapse. There is moderate mitral valve stenosis. Doppler and Color Flow revealed m ild to moderate mitral regurgitation. TRICUSPID VALVE Doppler and Color Flow revealed severe tricuspid regurgitation. There is severe pulmonary hypertensio n. The PA pressure was estimated at 82 mmHg. PULMONIC VALVE The pulmonic valve is not well visualized. Doppler and Color Flow revealed no pulmonic valvular regur gitation. GREAT VESSELS The aortic root is normal in size. The ascending aorta is normal in size. The pulmonary artery is nor mal. The IVC is dilated and collapses <50% with inspiration. PERICARDIAL EFFUSION There is moderate left pleural effusion. There is no evidence of significant pericardial effusion. Critical Notification Critical Value: No <Conclusion> There is mild concentric left ventricular hypertrophy. The Ejection Fraction is 65%. There is a pacemaker lead in the right ventricle. The left atrium is severely dilated. The right atrium is moderately dilated. The aortic valve is moderately sclerotic. There is no significant aortic valvular stenosis. Doppler and Color Flow revealed mild to moderate mitral regurgitation. There is moderate mitral valve stenosis. Mitral annular calcification is severe. The mitral valve leaflets are calcified. Doppler and Color Flow revealed severe tricuspid regurgitation. There is severe pulmonary hypertension. The PA pressure was estimated at 82 mmHg. The pulmonic valve is not well visualized. There is moderate left pleural effusion. There is no evidence of significant pericardial effusion.
[2016-09-12] MEDS: ATORVASTATIN CALCIUM 10 MG TABLET. PO SCH (21:10)
[2016-09-12] MEDS: DIPHENHYDRAMINE HCL 25 MG CAPSULE PO SCH (21:10)
[2016-09-13] VITALS (7 sets, daily range): BP systolic 92–157; BP diastolic 31–68
[2016-09-13 06:28] LABS: CALCIUM 8.7 mg/dL (8.5-10.1); CREATININE 1.9 mg/dL (0.6-1.0)
[2016-09-13] MEDS ORDERED: FUROSEMIDE 40 MG/4 ML VIAL IVP ONE (07:30)
[2016-09-13] MEDS ORDERED: SODIUM POLYSTYRENE SULFONATE 15 GM/60 ML ORAL.SUSP. PO ONE (07:30)
--- NOTE | 2016-09-13 07:51 | PDOC ---
SUBJECTIVE Subjective Feeling better overall. Still short of breath. Had difficulty urinating and had Morales placed last night. Eating a little bit but not much which is usual for her. Less swelling in the legs. Her left heel is a little bit sore today. Denies any chest pain. OBJECTIVE Vital Signs Vital Signs Date Time Temp Pulse Resp B/P Pulse Ox O2 Delivery O2 Flow Rate FiO2 09/13/16 03:00 97.7 69 16 135/56 95 Nasal Cannula 3.0 97.7 09/12/16 23:00 97.9 74 16 121/70 98 Nasal Cannula 3.0 97.9 09/12/16 20:00 Nasal Cannula 3.0 09/12/16 19:46 97 Nasal Cannula 2.0 09/12/16 19:00 97.9 78 16 80/46 94 Nasal Cannula 3.0 97.9 09/12/16 16:00 66 114/61 91 09/12/16 15:18 Nasal Cannula 2.0 09/12/16 15:00 112/22 09/12/16 15:00 98.1 81 22 118/19 92 Nasal Cannula 3.0 98.1 09/12/16 14:22 72 120/23 92 3.0 09/12/16 12:18 Nasal Cannula 3.0 09/12/16 11:39 Nasal Cannula 2.0 09/12/16 11:00 74 88/24 89 2.0 09/12/16 11:00 97/28 09/12/16 11:00 89 110/34 94 2.0 09/12/16 11:00 97.9 76 24 96/20 92 Nasal Cannula 2.0 97.9 09/12/16 10:55 Nasal Cannula 3.0 09/12/16 09:09 96 Nasal Cannula 2.0 09/12/16 09:00 70 115/37 09/12/16 07:45 Nasal Cannula 2.0 I & O Intake and Output 09/13/16 07:00 Intake Total 1020 ml Output Total 1400 ml Balance -380 ml Intake Oral 1020 ml Output Urine Total 1400 ml PHYSICAL EXAM Physical Exam General: No acute distress. Laying in bed with supplemental oxygen on. Mental status: Alert and oriented. Chest: Expiratory wheezes diffusely. Less crackles at the bases this morning. Fair air movement. CV: Normal rate. Regular rhythm. No murmur. Abdomen: Normal bowel sounds. Soft. Not distended. Minimal tenderness diffusely. No guarding. No rebound. Extremities: 1+ bilateral lower extremity edema. Skin: Still with erythema in the bilateral lower extremities. Worse on the left. Skin abrasion on the left anterior leg is dry. Left posterior heel without any open sore. Some tenderness to palpation and mild erythema. Pillows readjusted. ASSESSMENT/PLAN Assessment/Plan 1. Acute on chronic respiratory failure, probably multifactorial: Continue nebulizer treatments, supplemental oxygen, diuresis. Give dose of Lasix IV this morning. Continue per pulmonology. 2. Acute on chronic diastolic congestive heart failure with severe pulmonary hypertension: Additional dose of Lasix IV today. Echocardiogram noted. Continue per cardiology. 3. Acute renal failure on chronic kidney disease: Potassium remains elevated. Consult nephrology. 4. Cellulitis, lower extremities: Continue vancomycin. Pharmacy dosing based on renal function. 5. Hyperkalemia: Kayexalate this morning. Lasix this morning. Potassium supplements stopped on admission. Recheck BMP this afternoon. Continue per nephrology. 6. Diabetes mellitus type 2: Stable. 7. Possible pacer lead disruption with subtle lucency noted on chest x-ray: Per cardiology 8. Spiculated lung mass right upper lobe, increasing size: Consult Dr. Valencia, oncology as the patient was to have an appointment with him tomorrow anyhow regarding the lung cancer. 9. Elevated troponins: Continue per cardiology. Problems: COMMENT Lab Laboratory Tests Test 09/12/16 07:48 09/12/16 07:52 09/12/16 09:49 09/12/16 11:16 White Blood Count 5.1x10^3/uL (4.0-11.0) Red Blood Count 3.40x10^6/uL (3.50-5.40) Hemoglobin 10.4g/dL (12.0-15.5) Hematocrit 32.6% (36.0-47.0) Mean Corpuscular Volume 96fL (79-100) Mean Corpuscular Hemoglobin 31pg (25-35) Mean Corpuscular Hemoglobin Concent 32g/dL (31-37) Red Cell Distribution Width 14.3% (11.5-14.5) Platelet Count 106x10^3/uL (140-400) Neutrophils (%) (Auto) 75% (31-73) Lymphocytes (%) (Auto) 16% (24-48) Monocytes (%) (Auto) 8% (0-9) Eosinophils (%) (Auto) 1% (0-3) Basophils (%) (Auto) 0% (0-3) Neutrophils # (Auto) 3.8x10^3uL (1.8-7.7) Lymphocytes # (Auto) 0.8x10^3/uL (1.0-4.8) Monocytes # (Auto) 0.4x10^3/uL (0.0-1.1) Eosinophils # (Auto) 0.1x10^3/uL (0.0-0.7) Basophils # (Auto) 0.0x10^3/uL (0.0-0.2) Sodium Level 141mmol/L (136-145) Potassium Level 5.9mmol/L (3.5-5.1) Chloride Level 105mmol/L (98-107) Carbon Dioxide Level 28mmol/L (21-32) Anion Gap 8 (6-14) Blood Urea Nitrogen 41mg/dL (7-20) Creatinine 1.8mg/dL (0.6-1.0) Estimated GFR (Cockcroft-Gault) 26.6 Glucose Level 93mg/dL (70-99) Lactic Acid Level 1.4mmol/L (0.4-2.0) Calcium Level 8.7mg/dL (8.5-10.1) Troponin I Quantitative 0.095ng/mL (0.000-0.055) Glucose (Fingerstick) 91mg/dL (70-99) 124mg/dL (70-99) Urine Collection Type Unknown Urine Color Yellow Urine Clarity Clear Urine pH 5.5 Urine Specific [place] 1.015 Urine Protein Negativemg/dL (NEG-TRACE) Urine Glucose (UA) Negativemg/dL (NEG) Urine Ketones (Stick) Negativemg/dL (NEG) Urine Blood Negative (NEG) Urine Nitrite Negative (NEG) Urine Bilirubin Negative (NEG) Urine Urobilinogen Dipstick 1.0mg/dL (0.2 mg/dL) Urine Leukocyte Esterase Small (NEG) Urine RBC 0/HPF (0-2) Urine WBC Occ/HPF (0-4) Urine Squamous Epithelial Cells Few/LPF Urine Bacteria 0/HPF (0-FEW) Urine Hyaline Casts Moderate/HPF Urine Mucus Mod/LPF Test 09/12/16 13:58 09/12/16 16:48 09/12/16 21:16 09/13/16 06:00 Troponin I Quantitative 0.133ng/mL (0.000-0.055) Glucose (Fingerstick) 130mg/dL (70-99) 140mg/dL (70-99) Sodium Level 139mmol/L (136-145) Potassium Level 6.0mmol/L (3.5-5.1) Chloride Level 102mmol/L (98-107) Carbon Dioxide Level 29mmol/L (21-32) Anion Gap 8 (6-14) Blood Urea Nitrogen 42mg/dL (7-20) Creatinine 1.9mg/dL (0.6-1.0) Estimated GFR (Cockcroft-Gault) 25.0 Glucose Level 138mg/dL (70-99) Calcium Level 8.7mg/dL (8.5-10.1) JAIRON EPSTEIN MD Sep 13, 2016 07:51
[2016-09-13] MEDS: PANTOPRAZOLE 40 MG TABLET. PO SCH (07:59)
[2016-09-13] MEDS: INSULIN ASPART 300 UNITS/3 ML INSULN.PEN SQ SCH ×3 (08:00→17:46)
[2016-09-13] MEDS: IPRATRPIUM/ALBUTEROL 0.5/2.5MG 3 ML NEBU. NEB SCH ×4 (08:33→19:34)
--- NOTE | 2016-09-13 09:23 | PDOC ---
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 When I saw her in February we discussed systemic tx not having appreciable benefit. Tumor is very slow growing. She did completed RT to a symptomatic abd wall lesion in Mar. I believe her f/u tomorrow with w/ Dr. Roche and I will consult him. Other med issues of more pressing concern. F/U med onc prn. Thank you. ALEN BORJAS DO Sep 13, 2016 09:23
--- NOTE | 2016-09-13 09:53 | PDOC ---
PROGRESS NOTES Subjective Subjective Pt a&Ox3, resting comfortably in bed, daughter at bedside. States that she is breathing a lot easier today. Denies having any chest discomfort. C/o pain to lower left leg 2/2 cellulitis. No new complaints at this time Objective Objective Vital Signs Date Time Temp Pulse Resp B/P Pulse Ox O2 Delivery O2 Flow Rate FiO2 09/13/16 08:34 98 Nasal Cannula 2.0 09/13/16 07:00 97.9 74 20 157/68 97.9 Intake and Output 09/13/16 07:00 Intake Total 1020 ml Output Total 1400 ml Balance -380 ml Intake Oral 1020 ml Output Urine Total 1400 ml Physical Exam Abdomen: Normal bowel sounds, Soft, No tenderness, No hepatosplenomegaly, No masses Heart: Regular rate, Normal S1, Normal S2, No murmurs, Gallops Extremities: Other (tenderness and swelling with redness left lower ext) General: Alert, Oriented X3, Cooperative, No acute distress Lungs: Clear to auscultation, Normal air movement Skin: Other (redness to left lower ext with beginning skin breakdown) Assessment Assessment Problems Medical Problems: (1) Acute and chronic respiratory failure Status: Acute (2) Acute on chronic renal failure Status: Acute (3) Congestive heart failure Status: Acute (4) Hyperkalemia Status: Acute (5) Hypoglycemia associated with diabetes Status: Acute Plan Plan of Care Stable today Will have woundcare evaluate patients lower leg Continue with current plan of care Comment Review of Relevant I have reviewed the following items edna (where applicable) has been applied. Labs Laboratory Tests Test 09/11/16 23:03 09/11/16 23:05 09/12/16 05:27 09/12/16 07:48 Glucose (Fingerstick) 96mg/dL (70-99) 67mg/dL (70-99) White Blood Count 5.5x10^3/uL (4.0-11.0) 5.1x10^3/uL (4.0-11.0) Red Blood Count 3.67x10^6/uL (3.50-5.40) 3.40x10^6/uL (3.50-5.40) Hemoglobin 11.4g/dL (12.0-15.5) 10.4g/dL (12.0-15.5) Hematocrit 35.4% (36.0-47.0) 32.6% (36.0-47.0) Mean Corpuscular Volume 97fL (79-100) 96fL (79-100) Mean Corpuscular Hemoglobin 31pg (25-35) 31pg (25-35) Mean Corpuscular Hemoglobin Concent 32g/dL (31-37) 32g/dL (31-37) Red Cell Distribution Width 14.7% (11.5-14.5) 14.3% (11.5-14.5) Platelet Count 116x10^3/uL (140-400) 106x10^3/uL (140-400) Neutrophils (%) (Auto) 76% (31-73) 75% (31-73) Lymphocytes (%) (Auto) 15% (24-48) 16% (24-48) Monocytes (%) (Auto) 7% (0-9) 8% (0-9) Eosinophils (%) (Auto) 1% (0-3) 1% (0-3) Basophils (%) (Auto) 0% (0-3) 0% (0-3) Neutrophils # (Auto) 4.2x10^3uL (1.8-7.7) 3.8x10^3uL (1.8-7.7) Lymphocytes # (Auto) 0.8x10^3/uL (1.0-4.8) 0.8x10^3/uL (1.0-4.8) Monocytes # (Auto) 0.4x10^3/uL (0.0-1.1) 0.4x10^3/uL (0.0-1.1) Eosinophils # (Auto) 0.1x10^3/uL (0.0-0.7) 0.1x10^3/uL (0.0-0.7) Basophils # (Auto) 0.0x10^3/uL (0.0-0.2) 0.0x10^3/uL (0.0-0.2) D-Dimer ([place]) 1.73ug/mlFEU (0.00-0.50) Sodium Level 142mmol/L (136-145) 141mmol/L (136-145) Potassium Level 5.6mmol/L (3.5-5.1) 5.9mmol/L (3.5-5.1) Chloride Level 103mmol/L (98-107) 105mmol/L (98-107) Carbon Dioxide Level 29mmol/L (21-32) 28mmol/L (21-32) Anion Gap 10 (6-14) 8 (6-14) Blood Urea Nitrogen 41mg/dL (7-20) 41mg/dL (7-20) Creatinine 1.8mg/dL (0.6-1.0) 1.8mg/dL (0.6-1.0) Estimated GFR (Cockcroft-Gault) 26.6 26.6 BUN/Creatinine Ratio 23 (6-20) Glucose Level 109mg/dL (70-99) 93mg/dL (70-99) Lactic Acid Level 2.2mmol/L (0.4-2.0) 1.4mmol/L (0.4-2.0) Calcium Level 9.1mg/dL (8.5-10.1) 8.7mg/dL (8.5-10.1) Total Bilirubin 0.5mg/dL (0.2-1.0) Aspartate Amino Transf (AST/SGOT) 31U/L (15-37) Alanine Aminotransferase (ALT/SGPT) 14U/L (14-59) Alkaline Phosphatase 113U/L (46-116) Troponin I Quantitative 0.049ng/mL (0.000-0.055) 0.095ng/mL (0.000-0.055) MP-Hvn-G-Type Natriuretic Peptide 6614pg/mL (0-449) Total Protein 7.1g/dL (6.4-8.2) Albumin 3.3g/dL (3.4-5.0) Albumin/Globulin Ratio 0.9 (1.0-1.7) Test 09/12/16 07:52 09/12/16 09:49 09/12/16 11:16 09/12/16 13:58 Glucose (Fingerstick) 91mg/dL (70-99) 124mg/dL (70-99) Urine Collection Type Unknown Urine Color Yellow Urine Clarity Clear Urine pH 5.5 Urine Specific [place] 1.015 Urine Protein Negativemg/dL (NEG-TRACE) Urine Glucose (UA) Negativemg/dL (NEG) Urine Ketones (Stick) Negativemg/dL (NEG) Urine Blood Negative (NEG) Urine Nitrite Negative (NEG) Urine Bilirubin Negative (NEG) Urine Urobilinogen Dipstick 1.0mg/dL (0.2 mg/dL) Urine Leukocyte Esterase Small (NEG) Urine RBC 0/HPF (0-2) Urine WBC Occ/HPF (0-4) Urine Squamous Epithelial Cells Few/LPF Urine Bacteria 0/HPF (0-FEW) Urine Hyaline Casts Moderate/HPF Urine Mucus Mod/LPF Troponin I Quantitative 0.133ng/mL (0.000-0.055) Test 09/12/16 16:48 09/12/16 21:16 09/13/16 06:00 09/13/16 07:49 Glucose (Fingerstick) 130mg/dL (70-99) 140mg/dL (70-99) 128mg/dL (70-99) Sodium Level 139mmol/L (136-145) Potassium Level 6.0mmol/L (3.5-5.1) Chloride Level 102mmol/L (98-107) Carbon Dioxide Level 29mmol/L (21-32) Anion Gap 8 (6-14) Blood Urea Nitrogen 42mg/dL (7-20) Creatinine 1.9mg/dL (0.6-1.0) Estimated GFR (Cockcroft-Gault) 25.0 Glucose Level 138mg/dL (70-99) Calcium Level 8.7mg/dL (8.5-10.1) Laboratory Tests Test 09/12/16 11:16 09/12/16 13:58 09/12/16 16:48 09/12/16 21:16 Glucose (Fingerstick) 124mg/dL (70-99) 130mg/dL (70-99) 140mg/dL (70-99) Troponin I Quantitative 0.133ng/mL (0.000-0.055) Test 09/13/16 06:00 09/13/16 07:49 Sodium Level 139mmol/L (136-145) Potassium Level 6.0mmol/L (3.5-5.1) Chloride Level 102mmol/L (98-107) Carbon Dioxide Level 29mmol/L (21-32) Anion Gap 8 (6-14) Blood Urea Nitrogen 42mg/dL (7-20) Creatinine 1.9mg/dL (0.6-1.0) Estimated GFR (Cockcroft-Gault) 25.0 Glucose Level 138mg/dL (70-99) Calcium Level 8.7mg/dL (8.5-10.1) Glucose (Fingerstick) 128mg/dL (70-99) Microbiology 09/12/16 Blood Culture - Preliminary, Resulted NO GROWTH AFTER 1 DAY Medications Current Medications Albuterol/ Ipratropium 3 ml 3 ml 1X ONCE NEB Last administered on 09/11/16 22 :40; Start 09/11/16 at 22:45; Stop 09/11/16 at 22:46; Status DC Levofloxacin/ Dextrose (LEVAQUIN 750mg PREMIX) 150 ml @ 100 mls/hr 1X ONCE IV Last administered on 09/12/16 04:27; Start 09/12/16 at 01:00; Stop 09/12/16 at 02:29; Status DC Albuterol/ Ipratropium (Duoneb) 3 ml PRN Q4HRS PRN NEB SOA; Start 09/12/16 at 00:45; Stop 09/12/16 at 06:00; Status DC Albuterol/ Ipratropium (Duoneb) 3 ml 1X ONCE NEB Last administered on 01:49; Start 09/12/16 at 01:30; Stop 09/12/16 at 01:31; Status DC Acetaminophen/ Hydrocodone Bitart (Lortab 5/325) 1 tab 1X ONCE PO ; Start 09/12 at 01:30; Stop 09/12/16 at 01:31; Status DC Albuterol Sulfate (Ventolin Neb Soln) 2.5 mg PRN Q4HRS PRN NEB SHORTNESS OF BREATH; Start 09/12/16 at 02:00; Stop 09/13/16 at 01:59; Status DC Acetaminophen/ Hydrocodone Bitart (Lortab 7.5/325) 1 tab PRN Q6HRS PRN PO MODERATE PAIN Last administered on 09/12/16 10:55; Start 09/12/16 at 03:45 Insulin Aspart (Novolog) 0-5 UNITS TIDWMEALS SQ ; Start 09/12/16 at 08:00 Dextrose 12.5 gm PRN Q15MIN PRN IV SEE COMMENTS; Start 09/12/16 at 03:45 Vancomycin HCl (Vanco Per Pharmacy) 1 each PRN DAILY PRN MC SEE COMMENTS Last administered on 09/12/16 14:56; Start 09/12/16 at 07:45 Albuterol/ Ipratropium (Duoneb) 3 ml RTQID NEB Last administered on 09/13/16 08:33; Start 09/12/16 at 08:00 Aspirin (Children'S Aspirin) 81 mg DAILY PO Last administered on 09/12/16 08: 19; Start 09/12/16 at 09:00 Bumetanide (Bumex) 1 mg NOON PO Last administered on 09/12/16 14:20; Start at 12:00 Diphenhydramine HCl (Benadryl) 25 mg HS PO Last administered on 09/12/16 21:10 ; Start 09/12/16 at 21:00 Acetaminophen/ Hydrocodone Bitart (Lortab 7.5/325) 1 tab PRN QHS PRN PO PAIN; Start 09/12/16 at 07:45 Isosorbide Mononitrate (Imdur) 30 mg DAILY16 PO ; Start 09/12/16 at 16:00 Lisinopril (Prinivil) 10 mg DAILY PO ; Start 09/12/16 at 09:00; Stop 09/13/16 at 07:24; Status DC Sertraline HCl (Zoloft) 25 mg DAILY PO Last administered on 09/12/16 08:19; Start 09/12/16 at 09:00 Cyclobenzaprine HCl (Flexeril) 10 mg PRN TID PRN PO MUSCLE SPASMS; Start at 08:00 Multivitamins/ Calcium (Thera M Plus) 1 tab DAILY PO Last administered on 08:19; Start 09/12/16 at 09:00 Fish Oil (Fish Oil) 1,000 mg DAILY PO Last administered on 09/12/16 08:19; Start 09/12/16 at 09:00 Pantoprazole Sodium (Protonix) 40 mg DAILYAC PO Last administered on 09/13/16 07:59; Start 09/12/16 at 08:00 Atorvastatin Calcium 10 mg 10 mg QHS PO Last administered on 09/12/16 21:10; Start 09/12/16 at 21:00 Vancomycin HCl/ Sodium Chloride (Iv Sodium Chloride 0.9% 500ml Bag) 500 ml @ 250 mls/hr 1X ONCE IV Last administered on 09/12/16 08:19; Start 09/12/16 at 08:30; Stop 09/12/16 at 10:29; Status DC Furosemide (Lasix) 40 mg 1X ONCE IVP Last administered on 09/12/16 11:26; Start 09/12/16 at 11:30; Stop 09/12/16 at 11:31; Status DC Vancomycin HCl 1 each 1X ONCE MC ; Start 09/14/16 at 08:00; Stop 09/14/16 at 08 :01 Sodium Polystyrene Sulfonate (Kayexalate) 15 gm 1X ONCE PO Last administered on 09/13/16 07:59; Start 09/13/16 at 07:30; Stop 09/13/16 at 07:31; Status DC Furosemide (Lasix) 40 mg 1X ONCE IVP Last administered on 09/13/16 07:59; Start 09/13/16 at 07:30; Stop 09/13/16 at 07:31; Status DC Active Scripts Active Sertraline Hcl 25 Mg Tablet 25 Mg PO DAILY Reported Bactrim 400-80 Mg Tablet (Sulfamethoxazole/Trimethoprim) 1 Each Tablet 1 Tab PO BID Bactrim 400-80 Mg Tablet (Sulfamethoxazole/Trimethoprim) 1 Each Tablet 1 Tab PO BID Bumetanide 1 Mg Tablet 1 Tab PO NOON Humulin 70-30 Vial (Hum Insulin Nph/Reg Insulin Hm) 100 Unit/1 Ml Vial 15 Unit SQ BIDAC Hydrocodone-Apap 7.5-325 (Hydrocodone Bit/Acetaminophen) 1 Each Tablet 1 Tab PO HS PRN Vitamin D2 (Ergocalciferol (Vitamin D2)) 50,000 Unit Capsule 50,000 Unit PO WEEKLY NEXT DOSE: PER USUAL TIME Prilosec (Omeprazole) 20 Mg Capsule.dr 1 Cap PO BID [place]-3 1,000 Mg Softgel ([place]-3 Fatty Acids/Fish Oil) 1 Each Capsule 1 Each PO DAILY Centrum Silver Tablet (Multivits-Min/Fa/Lycopene/Lut) 1 Each Tablet 1 Each PO DAILY Cyclobenzaprine Hcl 5 Mg Tablet 10 Mg PO TID PRN NEXT DOSE: WHEN NEEDED Benadryl (Diphenhydramine Hcl) 25 Mg Capsule 25 Mg PO HS Pravachol (Pravastatin Sodium) 40 Mg Tablet 40 Mg PO DAILY Potassium Chloride 10 Meq Capsule.er 10 Meq PO DAILY Lisinopril 10 Mg Tablet 10 Mg PO DAILY Imdur (Isosorbide Mononitrate) 30 Mg Tab.er.24h 30 Mg PO DAILY16 Children's Aspirin (Aspirin) 81 Mg Tab.chew 81 Mg PO DAILY Vitals/I & O Vital Sign - Last 24 Hours 09/12/16 09/12/16 09/12/16 09/12/16 10:55 11:00 11:00 11:00 Temp 97.9 97.9 Pulse 76 89 Resp 24 B/P 96/20 110/34 97/28 Pulse Ox 92 94 O2 Delivery Nasal Cannula Nasal Cannula O2 Flow Rate 3.0 2.0 2.0 09/12/16 09/12/16 09/12/16 09/12/16 11:00 11:39 12:18 14:22 Pulse 74 72 B/P 88/24 120/23 Pulse Ox 89 92 O2 Delivery Nasal Cannula Nasal Cannula O2 Flow Rate 2.0 2.0 3.0 3.0 09/12/16 09/12/16 09/12/16 09/12/16 15:00 15:00 15:18 16:00 Temp 98.1 98.1 Pulse 81 66 Resp 22 B/P 118/19 112/22 114/61 Pulse Ox 92 91 O2 Delivery Nasal Cannula Nasal Cannula O2 Flow Rate 3.0 2.0 09/12/16 09/12/16 09/12/16 09/12/16 19:00 19:46 20:00 23:00 Temp 97.9 97.9 97.9 97.9 Pulse 78 74 Resp 16 16 B/P 80/46 121/70 Pulse Ox 94 97 98 O2 Delivery Nasal Cannula Nasal Cannula Nasal Cannula Nasal Cannula O2 Flow Rate 3.0 2.0 3.0 3.0 09/13/16 09/13/16 09/13/16 03:00 07:00 08:34 Temp 97.7 97.9 97.7 97.9 Pulse 69 74 Resp 16 20 B/P 135/56 157/68 Pulse Ox 95 94 98 O2 Delivery Nasal Cannula Nasal Cannula Nasal Cannula O2 Flow Rate 3.0 3.0 2.0 Intake and Output 09/12/16 09/12/16 09/13/16 15:00 23:00 07:00 Intake Total 250 ml 650 ml 120 ml Output Total 450 ml 950 ml Balance 250 ml 200 ml -830 ml CELSA JAVIER MD Sep 13, 2016 09:53
[2016-09-13] MEDS: SERTRALINE 25 MG TABLET. PO SCH (09:57)
[2016-09-13] MEDS: ASPIRIN 81 MG TAB.CHEW PO SCH (09:57)
[2016-09-13] MEDS: MULTIVITAMIN with MINERAL TABLET. PO SCH (09:57)
[2016-09-13] MEDS: OMEGA-3 FATTY ACIDS/FISH OIL 1,000 MG CAPSULE. PO SCH (09:57)
--- NOTE | 2016-09-13 11:15 | PDOC2 ---
CONSULT Date of Consult Date of Consult DATE: 09/13/16 TIME: 11:08 Reason for Consult Reason for Consult: GUME AND CKD WITH HIGH K Referring Physician Referring Physician: TONY Identification/Chief Complaint Chief Complaint SOB AND LE INFECTION Source Source: Chart review History of Present Illness Reason for Visit: THIS IS AN 86 YR OLD ADMITTED WITH SOB AND LEFT LE CELLULITIS. LABS SHOWED A CR OF 1.9 AND A K OF 6.0. SHE HAS CKD STAGE 3 WITH CR OF 1.3-1.5 AT BASELINE. SHE WAS GIVEN LASIX AND KAYEXALATE THIS AM. HE KCL HAS BEEN STOPPED. PERTINENT OTHER HX INCLUDES STAGE 4 LUNG CANCER. ALSO STATED THAT SHE HAS NOT BEEN EATING WELL. SHE WAS ON LISINOPRIL, BACTRIM AND KCL AT HOME WELL Past Medical History Cardiovascular: CHF, HTN Heme/Onc: Cancer (Lung and uterine) Musculoskeletal: Weakness, Swelling, Stiffness, Other (back pain) Renal/: Chronic renal insuff Endocrine: Diabetes Grav: 6 Para: 6 Past Surgical History Past Surgical History: Pacemaker, Appendectomy, CABG (x4), Hysterectomy ( partial) Social History ALCOHOL: none Current Problem List Problem List Problems Medical Problems: (1) Acute and chronic respiratory failure Status: Acute (2) Acute on chronic renal failure Status: Acute (3) Congestive heart failure Status: Acute (4) Hyperkalemia Status: Acute (5) Hypoglycemia associated with diabetes Status: Acute Current Medications Current Medications Current Medications Albuterol/ Ipratropium 3 ml 3 ml 1X ONCE NEB Last administered on 09/11/16 22 :40; Start 09/11/16 at 22:45; Stop 09/11/16 at 22:46; Status DC Levofloxacin/ Dextrose (LEVAQUIN 750mg PREMIX) 150 ml @ 100 mls/hr 1X ONCE IV Last administered on 09/12/16 04:27; Start 09/12/16 at 01:00; Stop 09/12/16 at 02:29; Status DC Albuterol/ Ipratropium (Duoneb) 3 ml PRN Q4HRS PRN NEB SOA; Start 09/12/16 at 00:45; Stop 09/12/16 at 06:00; Status DC Albuterol/ Ipratropium (Duoneb) 3 ml 1X ONCE NEB Last administered on 01:49; Start 09/12/16 at 01:30; Stop 09/12/16 at 01:31; Status DC Acetaminophen/ Hydrocodone Bitart (Lortab 5/325) 1 tab 1X ONCE PO ; Start 09/12 at 01:30; Stop 09/12/16 at 01:31; Status DC Albuterol Sulfate (Ventolin Neb Soln) 2.5 mg PRN Q4HRS PRN NEB SHORTNESS OF BREATH; Start 09/12/16 at 02:00; Stop 09/13/16 at 01:59; Status DC Acetaminophen/ Hydrocodone Bitart (Lortab 7.5/325) 1 tab PRN Q6HRS PRN PO MODERATE PAIN Last administered on 09/12/16 10:55; Start 09/12/16 at 03:45 Insulin Aspart (Novolog) 0-5 UNITS TIDWMEALS SQ ; Start 09/12/16 at 08:00 Dextrose 12.5 gm PRN Q15MIN PRN IV SEE COMMENTS; Start 09/12/16 at 03:45 Vancomycin HCl (Vanco Per Pharmacy) 1 each PRN DAILY PRN MC SEE COMMENTS Last administered on 09/12/16 14:56; Start 09/12/16 at 07:45 Albuterol/ Ipratropium (Duoneb) 3 ml RTQID NEB Last administered on 09/13/16 08:33; Start 09/12/16 at 08:00 Aspirin (Children'S Aspirin) 81 mg DAILY PO Last administered on 09/13/16 09: 57; Start 09/12/16 at 09:00 Bumetanide (Bumex) 1 mg NOON PO Last administered on 09/12/16 14:20; Start at 12:00 Diphenhydramine HCl (Benadryl) 25 mg HS PO Last administered on 09/12/16 21:10 ; Start 09/12/16 at 21:00 Acetaminophen/ Hydrocodone Bitart (Lortab 7.5/325) 1 tab PRN QHS PRN PO PAIN; Start 09/12/16 at 07:45 Isosorbide Mononitrate (Imdur) 30 mg DAILY16 PO ; Start 09/12/16 at 16:00 Lisinopril (Prinivil) 10 mg DAILY PO ; Start 09/12/16 at 09:00; Stop 09/13/16 at 07:24; Status DC Sertraline HCl (Zoloft) 25 mg DAILY PO Last administered on 09/13/16 09:57; Start 09/12/16 at 09:00 Cyclobenzaprine HCl (Flexeril) 10 mg PRN TID PRN PO MUSCLE SPASMS; Start at 08:00 Multivitamins/ Calcium (Thera M Plus) 1 tab DAILY PO Last administered on 09:57; Start 09/12/16 at 09:00 Fish Oil (Fish Oil) 1,000 mg DAILY PO Last administered on 09/13/16 09:57; Start 09/12/16 at 09:00 Pantoprazole Sodium (Protonix) 40 mg DAILYAC PO Last administered on 09/13/16 07:59; Start 09/12/16 at 08:00 Atorvastatin Calcium 10 mg 10 mg QHS PO Last administered on 09/12/16 21:10; Start 09/12/16 at 21:00 Vancomycin HCl/ Sodium Chloride (Iv Sodium Chloride 0.9% 500ml Bag) 500 ml @ 250 mls/hr 1X ONCE IV Last administered on 09/12/16 08:19; Start 09/12/16 at 08:30; Stop 09/12/16 at 10:29; Status DC Furosemide (Lasix) 40 mg 1X ONCE IVP Last administered on 09/12/16 11:26; Start 09/12/16 at 11:30; Stop 09/12/16 at 11:31; Status DC Vancomycin HCl 1 each 1X ONCE MC ; Start 09/14/16 at 08:00; Stop 09/14/16 at 08 :01 Sodium Polystyrene Sulfonate (Kayexalate) 15 gm 1X ONCE PO Last administered on 09/13/16 07:59; Start 09/13/16 at 07:30; Stop 09/13/16 at 07:31; Status DC Furosemide (Lasix) 40 mg 1X ONCE IVP Last administered on 09/13/16 07:59; Start 09/13/16 at 07:30; Stop 09/13/16 at 07:31; Status DC Active Scripts Active Sertraline Hcl 25 Mg Tablet 25 Mg PO DAILY Reported Bactrim 400-80 Mg Tablet (Sulfamethoxazole/Trimethoprim) 1 Each Tablet 1 Tab PO BID Bactrim 400-80 Mg Tablet (Sulfamethoxazole/Trimethoprim) 1 Each Tablet 1 Tab PO BID Bumetanide 1 Mg Tablet 1 Tab PO NOON Humulin 70-30 Vial (Hum Insulin Nph/Reg Insulin Hm) 100 Unit/1 Ml Vial 15 Unit SQ BIDAC Hydrocodone-Apap 7.5-325 (Hydrocodone Bit/Acetaminophen) 1 Each Tablet 1 Tab PO HS PRN Vitamin D2 (Ergocalciferol (Vitamin D2)) 50,000 Unit Capsule 50,000 Unit PO WEEKLY NEXT DOSE: PER USUAL TIME Prilosec (Omeprazole) 20 Mg Capsule.dr 1 Cap PO BID [place]-3 1,000 Mg Softgel ([place]-3 Fatty Acids/Fish Oil) 1 Each Capsule 1 Each PO DAILY Centrum Silver Tablet (Multivits-Min/Fa/Lycopene/Lut) 1 Each Tablet 1 Each PO DAILY Cyclobenzaprine Hcl 5 Mg Tablet 10 Mg PO TID PRN NEXT DOSE: WHEN NEEDED Benadryl (Diphenhydramine Hcl) 25 Mg Capsule 25 Mg PO HS Pravachol (Pravastatin Sodium) 40 Mg Tablet 40 Mg PO DAILY Potassium Chloride 10 Meq Capsule.er 10 Meq PO DAILY Lisinopril 10 Mg Tablet 10 Mg PO DAILY Imdur (Isosorbide Mononitrate) 30 Mg Tab.er.24h 30 Mg PO DAILY16 Children's Aspirin (Aspirin) 81 Mg Tab.chew 81 Mg PO DAILY Allergies Allergies: Coded Allergies: Penicillins (Verified Allergy, Intermediate, hives, 08/10/15) adhesive tape (Verified Allergy, Intermediate, Rash, 12/15/15) aspirin (Verified Adverse Reaction, Intermediate, bloody nose, 12/15/15) pt states she will not take aspirin greater than 81mg due to hx of bloody noses morphine (Unverified Adverse Reaction, Intermediate, nausea and vomiting, 08/10/15) ROS Review of System CONFUSED Physical Exam General: Alert, Oriented X3, Cooperative, No acute distress HEENT: Atraumatic, PERRLA, EOMI Lungs: Clear to auscultation, Normal air movement Heart: Regular rate, Normal S1, Normal S2 Extremities: No clubbing Skin: No breakdown Neuro: Normal speech, Cranial nerves 3-12 NL Psych/Mental Status: Mood NL MUSCULOSKELETAL: No deformity Vitals VITALS Vital Signs Date Time Temp Pulse Resp B/P Pulse Ox O2 Delivery O2 Flow Rate FiO2 09/13/16 08:34 98 Nasal Cannula 2.0 09/13/16 07:00 97.9 74 20 157/68 97.9 Labs Labs Laboratory Tests Test 09/11/16 23:03 09/11/16 23:05 09/12/16 05:27 09/12/16 07:48 Glucose (Fingerstick) 96mg/dL (70-99) 67mg/dL (70-99) White Blood Count 5.5x10^3/uL (4.0-11.0) 5.1x10^3/uL (4.0-11.0) Red Blood Count 3.67x10^6/uL (3.50-5.40) 3.40x10^6/uL (3.50-5.40) Hemoglobin 11.4g/dL (12.0-15.5) 10.4g/dL (12.0-15.5) Hematocrit 35.4% (36.0-47.0) 32.6% (36.0-47.0) Mean Corpuscular Volume 97fL (79-100) 96fL (79-100) Mean Corpuscular Hemoglobin 31pg (25-35) 31pg (25-35) Mean Corpuscular Hemoglobin Concent 32g/dL (31-37) 32g/dL (31-37) Red Cell Distribution Width 14.7% (11.5-14.5) 14.3% (11.5-14.5) Platelet Count 116x10^3/uL (140-400) 106x10^3/uL (140-400) Neutrophils (%) (Auto) 76% (31-73) 75% (31-73) Lymphocytes (%) (Auto) 15% (24-48) 16% (24-48) Monocytes (%) (Auto) 7% (0-9) 8% (0-9) Eosinophils (%) (Auto) 1% (0-3) 1% (0-3) Basophils (%) (Auto) 0% (0-3) 0% (0-3) Neutrophils # (Auto) 4.2x10^3uL (1.8-7.7) 3.8x10^3uL (1.8-7.7) Lymphocytes # (Auto) 0.8x10^3/uL (1.0-4.8) 0.8x10^3/uL (1.0-4.8) Monocytes # (Auto) 0.4x10^3/uL (0.0-1.1) 0.4x10^3/uL (0.0-1.1) Eosinophils # (Auto) 0.1x10^3/uL (0.0-0.7) 0.1x10^3/uL (0.0-0.7) Basophils # (Auto) 0.0x10^3/uL (0.0-0.2) 0.0x10^3/uL (0.0-0.2) D-Dimer ([place]) 1.73ug/mlFEU (0.00-0.50) Sodium Level 142mmol/L (136-145) 141mmol/L (136-145) Potassium Level 5.6mmol/L (3.5-5.1) 5.9mmol/L (3.5-5.1) Chloride Level 103mmol/L (98-107) 105mmol/L (98-107) Carbon Dioxide Level 29mmol/L (21-32) 28mmol/L (21-32) Anion Gap 10 (6-14) 8 (6-14) Blood Urea Nitrogen 41mg/dL (7-20) 41mg/dL (7-20) Creatinine 1.8mg/dL (0.6-1.0) 1.8mg/dL (0.6-1.0) Estimated GFR (Cockcroft-Gault) 26.6 26.6 BUN/Creatinine Ratio 23 (6-20) Glucose Level 109mg/dL (70-99) 93mg/dL (70-99) Lactic Acid Level 2.2mmol/L (0.4-2.0) 1.4mmol/L (0.4-2.0) Calcium Level 9.1mg/dL (8.5-10.1) 8.7mg/dL (8.5-10.1) Total Bilirubin 0.5mg/dL (0.2-1.0) Aspartate Amino Transf (AST/SGOT) 31U/L (15-37) Alanine Aminotransferase (ALT/SGPT) 14U/L (14-59) Alkaline Phosphatase 113U/L (46-116) Troponin I Quantitative 0.049ng/mL (0.000-0.055) 0.095ng/mL (0.000-0.055) UA-Tcv-S-Type Natriuretic Peptide 6614pg/mL (0-449) Total Protein 7.1g/dL (6.4-8.2) Albumin 3.3g/dL (3.4-5.0) Albumin/Globulin Ratio 0.9 (1.0-1.7) Test 09/12/16 07:52 09/12/16 09:49 09/12/16 11:16 09/12/16 13:58 Glucose (Fingerstick) 91mg/dL (70-99) 124mg/dL (70-99) Urine Collection Type Unknown Urine Color Yellow Urine Clarity Clear Urine pH 5.5 Urine Specific [place] 1.015 Urine Protein Negativemg/dL (NEG-TRACE) Urine Glucose (UA) Negativemg/dL (NEG) Urine Ketones (Stick) Negativemg/dL (NEG) Urine Blood Negative (NEG) Urine Nitrite Negative (NEG) Urine Bilirubin Negative (NEG) Urine Urobilinogen Dipstick 1.0mg/dL (0.2 mg/dL) Urine Leukocyte Esterase Small (NEG) Urine RBC 0/HPF (0-2) Urine WBC Occ/HPF (0-4) Urine Squamous Epithelial Cells Few/LPF Urine Bacteria 0/HPF (0-FEW) Urine Hyaline Casts Moderate/HPF Urine Mucus Mod/LPF Troponin I Quantitative 0.133ng/mL (0.000-0.055) Test 09/12/16 16:48 09/12/16 21:16 09/13/16 06:00 09/13/16 07:49 Glucose (Fingerstick) 130mg/dL (70-99) 140mg/dL (70-99) 128mg/dL (70-99) Sodium Level 139mmol/L (136-145) Potassium Level 6.0mmol/L (3.5-5.1) Chloride Level 102mmol/L (98-107) Carbon Dioxide Level 29mmol/L (21-32) Anion Gap 8 (6-14) Blood Urea Nitrogen 42mg/dL (7-20) Creatinine 1.9mg/dL (0.6-1.0) Estimated GFR (Cockcroft-Gault) 25.0 Glucose Level 138mg/dL (70-99) Calcium Level 8.7mg/dL (8.5-10.1) Laboratory Tests Test 09/12/16 11:16 09/12/16 13:58 09/12/16 16:48 09/12/16 21:16 Glucose (Fingerstick) 124mg/dL (70-99) 130mg/dL (70-99) 140mg/dL (70-99) Troponin I Quantitative 0.133ng/mL (0.000-0.055) Test 09/13/16 06:00 09/13/16 07:49 Sodium Level 139mmol/L (136-145) Potassium Level 6.0mmol/L (3.5-5.1) Chloride Level 102mmol/L (98-107) Carbon Dioxide Level 29mmol/L (21-32) Anion Gap 8 (6-14) Blood Urea Nitrogen 42mg/dL (7-20) Creatinine 1.9mg/dL (0.6-1.0) Estimated GFR (Cockcroft-Gault) 25.0 Glucose Level 138mg/dL (70-99) Calcium Level 8.7mg/dL (8.5-10.1) Glucose (Fingerstick) 128mg/dL (70-99) Assessment/Plan Assessment/Plan IMP GUME WITH CR OF 1.9 HYPERKALEMIA CKD STAGE 3 WITH CR OF 1.2-1.5 DM II HTN LLE CELLULITIS STAGE 4 LUNG CA PLAN AGREE WITH LASIX AGREE WITH KAYEXALATE AVOID KCL, BACTRIM, THUAN-I COMBINATION IN THE FUTURE ENC PO INTAKE WILL FOLLOW CHAMP PANIAGUA MD Sep 13, 2016 11:15
--- NOTE | 2016-09-13 11:36 | PDOC ---
PULMONARY PROGRESS NOTES Subjective feels better Vitals Vital Signs Date Time Temp Pulse Resp B/P Pulse Ox O2 Delivery O2 Flow Rate FiO2 09/13/16 08:34 98 Nasal Cannula 2.0 09/13/16 07:00 97.9 74 20 157/68 97.9 General: Alert, No acute distress Lungs: Other (decrease bs) Cardiovascular: S1, S2 Abdomen: Soft, Non-tender Neuro Exam: Alert Extremities: No Edema, Other Skin: Warm Labs Laboratory Tests Test 09/11/16 23:03 09/11/16 23:05 09/12/16 05:27 09/12/16 07:48 Glucose (Fingerstick) 96mg/dL (70-99) 67mg/dL (70-99) White Blood Count 5.5x10^3/uL (4.0-11.0) 5.1x10^3/uL (4.0-11.0) Red Blood Count 3.67x10^6/uL (3.50-5.40) 3.40x10^6/uL (3.50-5.40) Hemoglobin 11.4g/dL (12.0-15.5) 10.4g/dL (12.0-15.5) Hematocrit 35.4% (36.0-47.0) 32.6% (36.0-47.0) Mean Corpuscular Volume 97fL (79-100) 96fL (79-100) Mean Corpuscular Hemoglobin 31pg (25-35) 31pg (25-35) Mean Corpuscular Hemoglobin Concent 32g/dL (31-37) 32g/dL (31-37) Red Cell Distribution Width 14.7% (11.5-14.5) 14.3% (11.5-14.5) Platelet Count 116x10^3/uL (140-400) 106x10^3/uL (140-400) Neutrophils (%) (Auto) 76% (31-73) 75% (31-73) Lymphocytes (%) (Auto) 15% (24-48) 16% (24-48) Monocytes (%) (Auto) 7% (0-9) 8% (0-9) Eosinophils (%) (Auto) 1% (0-3) 1% (0-3) Basophils (%) (Auto) 0% (0-3) 0% (0-3) Neutrophils # (Auto) 4.2x10^3uL (1.8-7.7) 3.8x10^3uL (1.8-7.7) Lymphocytes # (Auto) 0.8x10^3/uL (1.0-4.8) 0.8x10^3/uL (1.0-4.8) Monocytes # (Auto) 0.4x10^3/uL (0.0-1.1) 0.4x10^3/uL (0.0-1.1) Eosinophils # (Auto) 0.1x10^3/uL (0.0-0.7) 0.1x10^3/uL (0.0-0.7) Basophils # (Auto) 0.0x10^3/uL (0.0-0.2) 0.0x10^3/uL (0.0-0.2) D-Dimer ([place]) 1.73ug/mlFEU (0.00-0.50) Sodium Level 142mmol/L (136-145) 141mmol/L (136-145) Potassium Level 5.6mmol/L (3.5-5.1) 5.9mmol/L (3.5-5.1) Chloride Level 103mmol/L (98-107) 105mmol/L (98-107) Carbon Dioxide Level 29mmol/L (21-32) 28mmol/L (21-32) Anion Gap 10 (6-14) 8 (6-14) Blood Urea Nitrogen 41mg/dL (7-20) 41mg/dL (7-20) Creatinine 1.8mg/dL (0.6-1.0) 1.8mg/dL (0.6-1.0) Estimated GFR (Cockcroft-Gault) 26.6 26.6 BUN/Creatinine Ratio 23 (6-20) Glucose Level 109mg/dL (70-99) 93mg/dL (70-99) Lactic Acid Level 2.2mmol/L (0.4-2.0) 1.4mmol/L (0.4-2.0) Calcium Level 9.1mg/dL (8.5-10.1) 8.7mg/dL (8.5-10.1) Total Bilirubin 0.5mg/dL (0.2-1.0) Aspartate Amino Transf (AST/SGOT) 31U/L (15-37) Alanine Aminotransferase (ALT/SGPT) 14U/L (14-59) Alkaline Phosphatase 113U/L (46-116) Troponin I Quantitative 0.049ng/mL (0.000-0.055) 0.095ng/mL (0.000-0.055) GE-Jjr-D-Type Natriuretic Peptide 6614pg/mL (0-449) Total Protein 7.1g/dL (6.4-8.2) Albumin 3.3g/dL (3.4-5.0) Albumin/Globulin Ratio 0.9 (1.0-1.7) Test 09/12/16 07:52 09/12/16 09:49 09/12/16 11:16 09/12/16 13:58 Glucose (Fingerstick) 91mg/dL (70-99) 124mg/dL (70-99) Urine Collection Type Unknown Urine Color Yellow Urine Clarity Clear Urine pH 5.5 Urine Specific [place] 1.015 Urine Protein Negativemg/dL (NEG-TRACE) Urine Glucose (UA) Negativemg/dL (NEG) Urine Ketones (Stick) Negativemg/dL (NEG) Urine Blood Negative (NEG) Urine Nitrite Negative (NEG) Urine Bilirubin Negative (NEG) Urine Urobilinogen Dipstick 1.0mg/dL (0.2 mg/dL) Urine Leukocyte Esterase Small (NEG) Urine RBC 0/HPF (0-2) Urine WBC Occ/HPF (0-4) Urine Squamous Epithelial Cells Few/LPF Urine Bacteria 0/HPF (0-FEW) Urine Hyaline Casts Moderate/HPF Urine Mucus Mod/LPF Troponin I Quantitative 0.133ng/mL (0.000-0.055) Test 09/12/16 16:48 09/12/16 21:16 09/13/16 06:00 09/13/16 07:49 Glucose (Fingerstick) 130mg/dL (70-99) 140mg/dL (70-99) 128mg/dL (70-99) Sodium Level 139mmol/L (136-145) Potassium Level 6.0mmol/L (3.5-5.1) Chloride Level 102mmol/L (98-107) Carbon Dioxide Level 29mmol/L (21-32) Anion Gap 8 (6-14) Blood Urea Nitrogen 42mg/dL (7-20) Creatinine 1.9mg/dL (0.6-1.0) Estimated GFR (Cockcroft-Gault) 25.0 Glucose Level 138mg/dL (70-99) Calcium Level 8.7mg/dL (8.5-10.1) Test 09/13/16 10:43 Glucose (Fingerstick) 154mg/dL (70-99) Laboratory Tests Test 09/12/16 13:58 09/12/16 16:48 09/12/16 21:16 09/13/16 06:00 Troponin I Quantitative 0.133ng/mL (0.000-0.055) Glucose (Fingerstick) 130mg/dL (70-99) 140mg/dL (70-99) Sodium Level 139mmol/L (136-145) Potassium Level 6.0mmol/L (3.5-5.1) Chloride Level 102mmol/L (98-107) Carbon Dioxide Level 29mmol/L (21-32) Anion Gap 8 (6-14) Blood Urea Nitrogen 42mg/dL (7-20) Creatinine 1.9mg/dL (0.6-1.0) Estimated GFR (Cockcroft-Gault) 25.0 Glucose Level 138mg/dL (70-99) Calcium Level 8.7mg/dL (8.5-10.1) Test 09/13/16 07:49 09/13/16 10:43 Glucose (Fingerstick) 128mg/dL (70-99) 154mg/dL (70-99) Medications Active Scripts Medications Dose Route/Sig Days Date Category Dose Instructions Bactrim 400-80 Mg Tablet (Sulfamethoxazole/Trimethoprim) 1 Each Tablet 1 Tab PO BID 09/12/16 Reported Bactrim 400-80 Mg Tablet (Sulfamethoxazole/Trimethoprim) 1 Each Tablet 1 Tab PO BID 09/12/16 Reported Bumetanide 1 Mg Tablet 1 Tab PO NOON 02/18/16 Reported Humulin 70-30 Vial (Hum Insulin Nph/Reg Insulin Hm) 100 Unit/1 Ml Vial 15 Unit SQ BIDAC 02/18/16 Reported Sertraline Hcl 25 Mg Tablet 25 Mg PO DAILY 12/21/15 Rx Hydrocodone-Apap 7.5-325 (Hydrocodone Bit/Acetaminophen) 1 Each Tablet 1 Tab PO HS PRN 08/10/15 Reported Vitamin D2 (Ergocalciferol (Vitamin D2)) 50,000 Unit Capsule 50,000 Unit PO WEEKLY 08/10/15 Reported NEXT DOSE: PER USUAL TIME Prilosec (Omeprazole) 20 Mg Capsule.dr 1 Cap PO BID 08/10/15 Reported [place]-3 1,000 Mg Softgel ([place]-3 Fatty Acids/Fish Oil) 1 Each Capsule 1 Each PO DAILY 08/10/15 Reported Centrum Silver Tablet (Multivits-Min/Fa/Lycopene/Lut) 1 Each Tablet 1 Each PO DAILY 08/10/15 Reported Cyclobenzaprine Hcl 5 Mg Tablet 10 Mg PO TID PRN 04/15/14 Reported NEXT DOSE: WHEN NEEDED Benadryl (Diphenhydramine Hcl) 25 Mg Capsule 25 Mg PO HS 01/25/14 Reported Pravachol (Pravastatin Sodium) 40 Mg Tablet 40 Mg PO DAILY 01/25/14 Reported Potassium Chloride 10 Meq Capsule.er 10 Meq PO DAILY 01/24/14 Reported Lisinopril 10 Mg Tablet 10 Mg PO DAILY 01/24/14 Reported Imdur (Isosorbide Mononitrate) 30 Mg Tab.er.24h 30 Mg PO DAILY16 01/24/14 Reported Children's Aspirin (Aspirin) 81 Mg Tab.chew 81 Mg PO DAILY 01/24/14 Reported Impression . 1. Dyspnea with acute hypoxic respiratory failure with bilateral interstitial infiltrates. I suspect that this is secondary to [id number] diastolic heart failure/ MR. noncontrast CT chest with mild interstitial infiltrates / basal effusions related to CHF 2. 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 Status post radiation. 3. History of tobacco use, suspect underlying chronic obstructive pulmonary disease. 4. Renal insufficiency. 5. Increased troponin levels. Plan . 1. Would continue with present oxygen. 2. Diuresis. 3. noncontrast CT chest reviewed. increase mass size RUL. follow oncology recommendations 4. echocardiogram reviewed. severe mitral calcification. cardiology to follow 5. Bronchodilators. 6. Treatment of cellulitis per primary care. 7. Oncology to f/u on lung cancer. 8. d/w daughter SETH MULLINS MD Sep 13, 2016 11:36
--- NOTE | 2016-09-13 11:54 | PDOC ---
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 admitted with SOB likely due to CHF. CT chest here 09/12/2016 compared to 04/16/2016 10 mm mass RUL now 18 mm in size. Bilateral pleural effusions. Now feeling better since admit with less ankle edema. PE Abdominal wall mass in anterior RUQ reveals only residual erythema and induration with no palpable residual post treatment mass. Impression: St IV adenocarcinoma of lung with symptomatic abdominal wall mass . Mass smaller and now pain free since treatment. Primary lesion has progress but it is asymptomatic. I recommned ongoing follow up with her primary physician. In light of age and indolent progression of primary RUL I did not recommend treatment at this time. TAYLA MUHAMMAD MD Sep 13, 2016 11:54
[2016-09-13] MEDS: BUMETANIDE 1 MG TABLET PO SCH (12:42)
--- NOTE | 2016-09-13 13:41 | HP ---
ADMIT DATE: 09/12/2016 ATTENDING PHYSICIAN: Griffin Schuler M.D. CHIEF COMPLAINT: Increasing weakness since 09/08/2016. HISTORY OF PRESENT ILLNESS: The patient is an 86-year-old female who lives at home who has occasional need of wearing supplemental oxygen. She noticed since 09/08 that she was having increasing weakness and shaking when she was trying to ambulate. She was also having constant shortness of breath where she was needing the use of supplemental oxygen. She denies any cough. There is no chest pain or palpitation. She has not had any fever. She has had some swelling in her legs, particularly on the left side, but that is somewhat chronic for her. She has also noted some redness in the legs. She has had some tightness in her upper abdomen area as well. Due to her increasing need for supplemental oxygen and weakness, she presented to the Emergency Room for further evaluation. PAST MEDICAL HISTORY: Significant for [id number] combined diastolic and systolic congestive heart failure, osteoarthritis with lumbar spinal stenosis, coronary artery disease status post coronary artery bypass grafting, hypertension, valvular disease, COPD, diabetes mellitus type 2, pulmonary hypertension, hyperlipidemia, chronic constipation, severe peripheral vascular disease, lower extremity venous insufficiency, sick sinus syndrome, right upper lobe mass consistent with cancer for which she has been seen by Oncology. PAST SURGICAL HISTORY: Coronary artery bypass grafting, pacemaker x 2, back surgery x 3, hysterectomy, cholecystectomy, hemorrhoidectomy, salpingectomy and oophorectomy. ALLERGIES TO MEDICATIONS: PENICILLIN, ADHESIVE TAPE, ASPIRIN, AND MORPHINE. MEDICATIONS: At time of admission include aspirin 81 mg p.o. daily, Bumex 1 mg p.o. at noon, Flexeril 10 mg p.o. t.i.d. p.r.n., Benadryl 25 mg p.o. at bedtime, vitamin D 50,000 units p.o. weekly, Humulin 70/30 15 units subcutaneously b.i.d., [place] 7.5/325 one p.o. at bedtime p.r.n., Imdur 30 mg p.o. daily, lisinopril 10 mg p.o. daily, multivitamin 1 p.o. daily, omega 3 one 1 p.o. daily, omeprazole 20 mg p.o. b.i.d., potassium chloride 10 mEq p.o. daily, pravastatin 40 mg p.o. daily, Zoloft 25 mg p.o. daily, Bactrim-DS 1 p.o. b.i.d. for several days. SOCIAL HISTORY: She used to smoke, but has not smoked greater than 10 years. She has approximately [id number] smoking. She denies any significant alcohol use. She does live alone still, but has supportive family. FAMILY HISTORY: Noncontributory. REVIEW OF SYSTEMS: The patient denies any significant fevers. She has been swallowing without difficulty. There has been no significant congestion. She has had shortness of breath. No significant cough or wheezing. She denies chest pain or palpitations. She denies any nausea or vomiting. She does have bowel movements, no blood. She does have some urinary frequency and urgency which started the day prior to admission. She has had lower extremity swelling and redness for which she had just started Bactrim several days ago for presumed cellulitis. She denies any fevers, no mood issues. PHYSICAL EXAMINATION: VITAL SIGNS: At time of admission include temperature 97.7, pulse 75, respiratory 176/76, pulse ox 95% on 2 liters nasal cannula. GENERAL: The patient is lying in bed. She is ill appearing, but in no acute respiratory distress. She does have to stop with sentences. She is alert and oriented x 3. HEENT: The pupils are equal and round. The extraocular motions are intact. The sclerae are anicteric. The oropharynx is moist. NECK: Without JVD. There are bilateral bruits. CHEST: Clear to auscultation bilaterally. CARDIOVASCULAR: Heart has a regular rate and rhythm without murmur. ABDOMEN: Soft and nontender. There is no guarding or rebound. EXTREMITIES: Have 2+ bilateral lower extremity edema, slightly worse on the left. SKIN: There is erythema to the bilateral lower legs going from the mid foot to the knee on the left and over the anterior portion of the right leg from the ankle to just below the knee. There is a small open abrasion on the left anterolateral lower leg, does not appear to have any purulent drainage. NEUROLOGIC: She moves the extremities symmetrically grossly intact and nonfocal. PSYCHIATRIC: Mood and affect appear appropriate. LABORATORY DATA: At the time of admission, WBC 5.5, hemoglobin 11.4, hematocrit 35.4, platelets 116. D-dimer was 1.73. Urine was not done. Glucose 96, sodium 132, potassium 5.6, chloride 103, CO2 of 29, BUN 41, creatinine 1.8 with a baseline of approximately 1.3, and glucose 109. LFTs are within normal limits. Albumin is 3.3. IMAGING: Chest x-ray shows moderate prominent appearing bilateral interstitial lung markings likely moderate congestive failures with a trace left pleural effusion, a subtle lucency identified in one of the pacing leads laterally at the level of the left scapula which could be discontinuity in the pacer lead. Shoulder x-ray shows severe degenerative changes of the right shoulder with no acute fracture. Ventilation perfusion scan shows low probability for pulmonary embolism, but there was decreased radiotracer uptake in the right upper lobe of the lung. IMPRESSION: 1. [id number]-[id number] respiratory failure, probably multifactorial including chronic obstructive pulmonary disease, congestive heart failure. 2. Vrvdi-bx-[id number] congestive heart failure, probably diastolic and systolic. 3. Acute renal failure on chronic kidney disease, which appears to be just mildly increased creatinine at present. 4. Cellulitis of lower extremities. 5. Hyperkalemia. 6. Diabetes mellitus type 2. 7. Possible pacer lead disruption with subtle lucency noted on the chest x-ray. PLAN: The patient is admitted. We will start her on vancomycin for cellulitis, pharmacy to dose. We will consult Pulmonology and Cardiology regarding her congestive heart failure and COPD. She will need to be diuresed, although she appears to be somewhat prerenal at present. We will have to be gentle with that. We will use nebulizer treatments and supplemental oxygen. We will recheck the potassium level and if remains elevated, then we will need to consider other treatments including additional Lasix. We will use sliding scale insulin for diabetes. We will also have Cardiology evaluate the possible pacer lead disruption noted on chest x-ray. JAIRON EPSTEIN MD DR: PEPE/krzysztof JOB#: [id number] / [id number] JACY
[2016-09-13 14:10] LABS: CALCIUM 8.7 mg/dL (8.5-10.1); CREATININE 1.9 mg/dL (0.6-1.0); POTASSIUM 4.9 mmol/L (3.5-5.1)
[2016-09-13] MEDS: ISOSORBIDE MONONITRATE ER 30 MG TAB.ER.24H PO SCH (16:00)
[2016-09-13] MEDS: HYDROCODONE/APAP 7.5/325MG TABLET. PO PRN (17:42)
[2016-09-13] MEDS: ATORVASTATIN CALCIUM 10 MG TABLET. PO SCH (20:40)
[2016-09-13] MEDS: DIPHENHYDRAMINE HCL 25 MG CAPSULE PO SCH (20:40)
--- NOTE | 2016-09-13 21:46 | CONS ---
DATE OF CONSULTATION: 09/13/2016 REFERRING PROVIDER: Dr. Roman. REASON FOR CONSULTATION: Lung cancer. HISTORY OF PRESENT ILLNESS: The patient is an 86-year-old female whom I saw in clinic in February 2016 when she was referred for her recent diagnosis of lung cancer. She has had a right upper lung nodule present on CT scan since April 2014, previously measuring 1 cm in 2013. She was admitted to the hospital now with shortness of breath, acute on chronic systolic heart failure, acute on chronic kidney insufficiency and bilateral lower extremity cellulitis. A CT scan was performed and noted to have an increase in the size of the lung lesion to 1.8 cm. She had been noted in February to have some abdominal lesions that were increasing in size as well. One of these was biopsied by Dr. Lomeli and revealed poorly differentiated adenocarcinoma of lung origin. Because the lesion under her right breast was causing her pain, she actually did complete palliative radiation to this area with Dr. Roche in March. Her performance status is quite poor and at our visit, we decided that systemic therapy would not be of benefit to her. This cancer is clearly growing very slow as it has not changed in size much over the last 2 years. She has not had any additional areas of pain. Her main issues are her respiratory status, decreased performance status and the lower extremity cellulitis. PAST MEDICAL HISTORY: Arthritis, diabetes, heart disease, heart failure, hypertension, chronic oxygen, hyperlipidemia, lung cancer. PAST SURGICAL HISTORY: Heart catheterization, hysterectomy, hemorrhoidectomy x 2, pacemaker, back surgery x 3, unilateral oophorectomy, abdominal wall biopsy, CABG, cholecystectomy. FAMILY HISTORY: Dad with lung cancer. Mom with stage IV malignancy of unclear etiology, brother with prostate cancer. SOCIAL HISTORY: She is and lives with one of her daughters. She has many daughters in the area that are very supportive in her care. She previously smoked 1 pack a day for 50 years, but quit in 1997. She does not drink any alcohol. ALLERGIES: PENICILLIN, TAPE, ASPIRIN, MORPHINE. CURRENT MEDICATIONS: Lortab, DuoNebs, aspirin, Lipitor, Bumex, Flexeril, Benadryl, fish oil, insulin, Imdur, multivitamin, Protonix, sertraline, vancomycin. REVIEW OF SYSTEMS: Ten point review of systems completed and unremarkable with the exception of decreased weight, decreased appetite, shortness of breath, decreased mobility, lower extremity pain from the cellulitis. PHYSICAL EXAMINATION: VITAL SIGNS: Temperature 97.9, pulse 74, respiratory rate 20, blood pressure 157/68, 94% O2 on 3 liters. GENERAL: She is alert and oriented. She is not in any distress at this time. She is resting comfortably in her bed. HEENT: Extraocular muscle strength is intact. Mucous membranes are moist. CARDIOVASCULAR: Heart is regular in rhythm and rate. LUNGS: Diffuse wheezing bilaterally. ABDOMEN: Soft, nontender. EXTREMITIES: 2+ edema bilateral lower extremities with erythema, warmth and tenderness in her bilateral lower extremities, left greater than right. SKIN: Erythema as above in the lower extremities. The previously radiated lesion under her right breast also remains resolved and there are no other new areas of tenderness. IMAGING/LABORATORY DATA: CT chest noted to have an increase in the size of the right upper lung nodule, worsening bilateral effusions. Potassium 6.0, creatinine 1.9, up from her baseline of 1.5. CBC remains at her baseline with hemoglobin 10.7, platelets 106. ASSESSMENT AND PLAN: The patient is an 86-year-old female with the following medical problems: 1. 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 When I saw her in clinic in February, we had decided that she would undergo palliative radiation to the then symptomatic region on her abdomen. She completed this with Dr. Roche in March. She is aware that systemic therapy for the lung cancer is not going to give her appreciable benefit. Therefore, we did not decide to proceed with this. Her lung cancer is very slow growing over the last few years. Her other issues of heart failure, cellulitis, kidney insufficiency and decreased performance status are of much more importance at this time. she thought she had an appointment to follow up with me in clinic tomorrow, but it was likely Dr. Roche. I will consult him as well so that he can follow up with her here. Thank you for alerting me of her admission. We will continue to follow up as needed. ALEN BORJAS DO DR: AHMET/krzysztof JOB#: [id number] / [id number]
[2016-09-14 02:56] VITALS: BP 128/32
[2016-09-14 07:00] VITALS: BP 119/59
[2016-09-14] MEDS: IPRATRPIUM/ALBUTEROL 0.5/2.5MG 3 ML NEBU. NEB SCH ×4 (07:23→19:47)
[2016-09-14] MEDS ORDERED: VANCOMYCIN RANDOM LEVEL. MC ONE (08:00)
--- NOTE | 2016-09-14 08:18 | PDOC ---
SUBJECTIVE Subjective May be breathing a little bit better but still short of breath. Denies any chest pain. She thinks the swelling and redness in her legs is improved. Not really having the left heel pain today. She does complain of some itching irritation on her right abdomen in the skin folds. OBJECTIVE Vital Signs Vital Signs Date Time Temp Pulse Resp B/P Pulse Ox O2 Delivery O2 Flow Rate FiO2 09/14/16 07:24 93 Nasal Cannula 3.0 09/14/16 02:56 97.5 68 20 128/32 91 Nasal Cannula 3.0 97.5 09/13/16 23:00 97.9 69 20 121/32 94 Nasal Cannula 3.0 97.9 09/13/16 21:50 92 Nasal Cannula 3.0 09/13/16 20:50 92 Nasal Cannula 3.0 09/13/16 20:07 Nasal Cannula 3.0 09/13/16 19:36 92 Nasal Cannula 3.0 09/13/16 19:01 Nasal Cannula 2.0 09/13/16 19:00 97.9 78 20 133/36 94 Nasal Cannula 3.0 97.9 09/13/16 17:42 Nasal Cannula 2.0 09/13/16 16:09 Nasal Cannula 2.0 09/13/16 15:00 98.0 68 20 113/31 93 Nasal Cannula 3.0 98.0 09/13/16 12:15 129/39 09/13/16 12:07 Nasal Cannula 2.0 09/13/16 11:00 98.2 75 21 92/41 95 Nasal Cannula 3.0 98.2 09/13/16 08:34 98 Nasal Cannula 2.0 I & O Intake and Output 09/14/16 07:00 Intake Total 1570 ml Output Total 1475 ml Balance 95 ml Intake Oral 1570 ml Output Urine Total 1475 ml PHYSICAL EXAM Physical Exam General: No acute distress. Laying in bed with supplemental oxygen on. Mental status: Alert and oriented. Chest: Expiratory wheezes diffusely. Clear to auscultation bilaterally anteriorly. Fair air movement. CV: Normal rate. Regular rhythm. No murmur. Abdomen: Normal bowel sounds. Soft. Not distended. Nontender. No guarding. No rebound. Extremities: 1+ bilateral lower extremity edema. Skin: Left leg with wrap on. Right leg has less swelling with less erythema. Right abdomen at the skin fold from the pannus has mild erythema. ASSESSMENT/PLAN Assessment/Plan 1. Acute on chronic respiratory failure, probably multifactorial: Continue nebulizer treatments, supplemental oxygen, diuresis. Labs pending this morning so will hold on Lasix for now. 2. Acute on chronic diastolic congestive heart failure with severe pulmonary hypertension: As above. Echocardiogram noted. Continue per cardiology. 3. Acute renal failure on chronic kidney disease: This morning's lab pending. 4. Cellulitis, lower extremities: Appears to be improving. Continue vancomycin. Pharmacy dosing based on renal function. 5. Hyperkalemia: Improved yesterday afternoon. Today's labs pending. Received Kayexalate and IV Lasix yesterday morning. Potassium supplements stopped on admission. Monitor. Continue per nephrology. 6. Diabetes mellitus type 2: Stable. 7. Possible pacer lead disruption with subtle lucency noted on chest x-ray: Per cardiology 8. Spiculated lung mass right upper lobe, increasing size: Indolent growth. No apparent plan for treatment at this time. 9. Elevated troponins: Continue per cardiology. Problems: COMMENT Lab Laboratory Tests Test 09/13/16 10:43 09/13/16 13:50 09/13/16 15:56 09/13/16 20:43 Glucose (Fingerstick) 154mg/dL (70-99) 201mg/dL (70-99) 174mg/dL (70-99) Sodium Level 138mmol/L (136-145) Potassium Level 4.9mmol/L (3.5-5.1) Chloride Level 102mmol/L (98-107) Carbon Dioxide Level 29mmol/L (21-32) Anion Gap 7 (6-14) Blood Urea Nitrogen 40mg/dL (7-20) Creatinine 1.9mg/dL (0.6-1.0) Estimated GFR (Cockcroft-Gault) 25.0 Glucose Level 199mg/dL (70-99) Calcium Level 8.7mg/dL (8.5-10.1) Test 09/14/16 07:36 Glucose (Fingerstick) 120mg/dL (70-99) JAIRON EPSTEIN MD Sep 14, 2016 08:18
[2016-09-14] MEDS: INSULIN ASPART 300 UNITS/3 ML INSULN.PEN SQ SCH ×3 (08:36→17:09)
[2016-09-14] MEDS: PANTOPRAZOLE 40 MG TABLET. PO SCH (08:37)
[2016-09-14] MEDS: SERTRALINE 25 MG TABLET. PO SCH (08:38)
[2016-09-14] MEDS: OMEGA-3 FATTY ACIDS/FISH OIL 1,000 MG CAPSULE. PO SCH (08:38)
[2016-09-14] MEDS: MULTIVITAMIN with MINERAL TABLET. PO SCH (08:38)
[2016-09-14] MEDS: ASPIRIN 81 MG TAB.CHEW PO SCH (08:38)
[2016-09-14] MEDS: HYDROCODONE/APAP 7.5/325MG TABLET. PO PRN ×2 (08:40→16:19)
[2016-09-14] MEDS: VANCOMYCIN PER PHARMACY MC PRN (09:04)
[2016-09-14 09:29] LABS: ALBUMIN 2.9 g/dL (3.4-5.0); ALBUMIN/GLOBULIN RATIO 0.8 (1.0-1.7); CALCIUM 8.6 mg/dL (8.5-10.1); CREATININE 1.8 mg/dL (0.6-1.0); GFR 26.6; POTASSIUM 4.5 mmol/L (3.5-5.1); TOTAL BILIRUBIN 0.9 mg/dL (0.2-1.0); TOTAL PROTEIN 6.4 g/dL (6.4-8.2)
[2016-09-14] MEDS: NYSTATIN TOPICAL POWDER 15GM BOTTLE. TP SCH ×2 (09:51→21:13)
[2016-09-14] MEDS: VANCOMYCIN 1.25 GM in IV NORMAL SALINE 250ML 250 ML IV SCH (09:51)
[2016-09-14 11:00] VITALS: BP 120/93
--- NOTE | 2016-09-14 11:23 | PDOC ---
Renal-Progress Notes Subjective Notes Notes STILL HAS SOME SOB History of Present Illness Hx of present illness NO CHANGE Vitals Vitals Vital Signs Date Time Temp Pulse Resp B/P Pulse Ox O2 Delivery O2 Flow Rate FiO2 09/14/16 09:40 24 91 Nasal Cannula 3.0 09/14/16 07:00 98.1 70 119/59 98.1 Weight Weight [ ] I.O. Intake and Output Intake and Output 09/14/16 07:00 Intake Total 1570 ml Output Total 1475 ml Balance 95 ml Intake Oral 1570 ml Output Urine Total 1475 ml Labs Labs Laboratory Tests Test 09/13/16 13:50 09/13/16 15:56 09/13/16 20:43 09/14/16 07:36 Sodium Level 138mmol/L (136-145) Potassium Level 4.9mmol/L (3.5-5.1) Chloride Level 102mmol/L (98-107) Carbon Dioxide Level 29mmol/L (21-32) Anion Gap 7 (6-14) Blood Urea Nitrogen 40mg/dL (7-20) Creatinine 1.9mg/dL (0.6-1.0) Estimated GFR (Cockcroft-Gault) 25.0 Glucose Level 199mg/dL (70-99) Calcium Level 8.7mg/dL (8.5-10.1) Glucose (Fingerstick) 201mg/dL (70-99) 174mg/dL (70-99) 120mg/dL (70-99) Test 09/14/16 08:00 09/14/16 11:08 Sodium Level 140mmol/L (136-145) Potassium Level 4.5mmol/L (3.5-5.1) Chloride Level 103mmol/L (98-107) Carbon Dioxide Level 26mmol/L (21-32) Anion Gap 11 (6-14) Blood Urea Nitrogen 38mg/dL (7-20) Creatinine 1.8mg/dL (0.6-1.0) Estimated GFR (Cockcroft-Gault) 26.6 BUN/Creatinine Ratio 21 (6-20) Glucose Level 131mg/dL (70-99) Calcium Level 8.6mg/dL (8.5-10.1) Total Bilirubin 0.9mg/dL (0.2-1.0) Aspartate Amino Transf (AST/SGOT) 30U/L (15-37) Alanine Aminotransferase (ALT/SGPT) 19U/L (14-59) Alkaline Phosphatase 97U/L (46-116) Total Protein 6.4g/dL (6.4-8.2) Albumin 2.9g/dL (3.4-5.0) Albumin/Globulin Ratio 0.8 (1.0-1.7) Random Vancomycin Level 9.4mcg/mL Glucose (Fingerstick) 162mg/dL (70-99) Micro Micro Microbiology 09/12/16 Blood Culture - Preliminary, Resulted NO GROWTH AFTER 2 DAYS 09/12/16 Urine Culture - Final, Complete 09/12/16 Urine Culture Result 1 (MAMI) - Final, Complete Review of Systems Constitutional: yes: alert, oriented Ears/Nose/Throat: Yes: no symptom reported Eyes: Yes: no symptom reported Pulmonary: Yes dyspnea Cardiovascular: Yes no symptom reported Gastrointestional: Yes: no symptom reported Genitourinary: Yes: no symptom reported Musculoskeletal: Yes: muscle stiffness Physical Exam General Appearance: no apparent distress Skin: warm Respiratory: decreased breath sounds Heart: S1S2, RRR Abdomen: soft, bowel sounds present Genitourinary: bladder flat Neurology: alert, oriented Musculoskeletal: Weakness, Swelling, Stiffness, Other (back pain) Assessment Assessment IMP GUME - BETTER WITH CR OF 1.8 CKD STAGE 3 WITH CR OF 1.3-1.5 HYPERKALEMIA-RESOLVED LLE CELLULITIS STAGE 4 LUNG CA PLEURAL EFFUSIONS PLAN SUPPORTIVE CARE INCREASE BUMEX TO 2MG A DAY WILL FOLLOW CHAMP PANIAGUA MD Sep 14, 2016 11:23
--- NOTE | 2016-09-14 12:01 | PDOC ---
PROGRESS NOTES Subjective Subjective PT A&Ox3, cooperative. Pt sitting in chair. Denies having chest pain or shortness of breath. States that she feels very tired today. Left leg wrapped and she states that it is not currently causing her any pain. Objective Objective Vital Signs Date Time Temp Pulse Resp B/P Pulse Ox O2 Delivery O2 Flow Rate FiO2 09/14/16 11:45 Nasal Cannula 3.0 09/14/16 11:00 98.1 78 22 120/93 95 98.1 Intake and Output 09/14/16 07:00 Intake Total 1570 ml Output Total 1475 ml Balance 95 ml Intake Oral 1570 ml Output Urine Total 1475 ml Physical Exam Abdomen: Normal bowel sounds, Soft, No tenderness, No hepatosplenomegaly, No masses Heart: Regular rate, Normal S1, Normal S2, No murmurs, Gallops Extremities: No clubbing, No cyanosis, Normal pulses, Other (left LE wrapped and cellulitis improving) General: Alert, Oriented X3, Cooperative, No acute distress Lungs: Clear to auscultation, Normal air movement Neck: Supple, No JVD, Other (+ Bruit to left carotid artery) Skin: Other (cellulitis left lower ext) Assessment Assessment Problems Medical Problems: (1) Acute and chronic respiratory failure Status: Acute (2) Acute on chronic renal failure Status: Acute (3) Congestive heart failure Status: Acute (4) Hyperkalemia Status: Acute (5) Hypoglycemia associated with diabetes Status: Acute Plan Plan of Care Both legs are improving Stable from a cardiac standpoint Continue with current plan of care Comment Review of Relevant I have reviewed the following items edna (where applicable) has been applied. Labs Laboratory Tests Test 09/12/16 13:58 09/12/16 16:48 09/12/16 21:16 09/13/16 06:00 Troponin I Quantitative 0.133ng/mL (0.000-0.055) Glucose (Fingerstick) 130mg/dL (70-99) 140mg/dL (70-99) Sodium Level 139mmol/L (136-145) Potassium Level 6.0mmol/L (3.5-5.1) Chloride Level 102mmol/L (98-107) Carbon Dioxide Level 29mmol/L (21-32) Anion Gap 8 (6-14) Blood Urea Nitrogen 42mg/dL (7-20) Creatinine 1.9mg/dL (0.6-1.0) Estimated GFR (Cockcroft-Gault) 25.0 Glucose Level 138mg/dL (70-99) Calcium Level 8.7mg/dL (8.5-10.1) Test 09/13/16 07:49 09/13/16 10:43 09/13/16 13:50 09/13/16 15:56 Glucose (Fingerstick) 128mg/dL (70-99) 154mg/dL (70-99) 201mg/dL (70-99) Sodium Level 138mmol/L (136-145) Potassium Level 4.9mmol/L (3.5-5.1) Chloride Level 102mmol/L (98-107) Carbon Dioxide Level 29mmol/L (21-32) Anion Gap 7 (6-14) Blood Urea Nitrogen 40mg/dL (7-20) Creatinine 1.9mg/dL (0.6-1.0) Estimated GFR (Cockcroft-Gault) 25.0 Glucose Level 199mg/dL (70-99) Calcium Level 8.7mg/dL (8.5-10.1) Test 09/13/16 20:43 09/14/16 07:36 09/14/16 08:00 09/14/16 11:08 Glucose (Fingerstick) 174mg/dL (70-99) 120mg/dL (70-99) 162mg/dL (70-99) Sodium Level 140mmol/L (136-145) Potassium Level 4.5mmol/L (3.5-5.1) Chloride Level 103mmol/L (98-107) Carbon Dioxide Level 26mmol/L (21-32) Anion Gap 11 (6-14) Blood Urea Nitrogen 38mg/dL (7-20) Creatinine 1.8mg/dL (0.6-1.0) Estimated GFR (Cockcroft-Gault) 26.6 BUN/Creatinine Ratio 21 (6-20) Glucose Level 131mg/dL (70-99) Calcium Level 8.6mg/dL (8.5-10.1) Total Bilirubin 0.9mg/dL (0.2-1.0) Aspartate Amino Transf (AST/SGOT) 30U/L (15-37) Alanine Aminotransferase (ALT/SGPT) 19U/L (14-59) Alkaline Phosphatase 97U/L (46-116) Total Protein 6.4g/dL (6.4-8.2) Albumin 2.9g/dL (3.4-5.0) Albumin/Globulin Ratio 0.8 (1.0-1.7) Random Vancomycin Level 9.4mcg/mL Laboratory Tests Test 09/13/16 13:50 09/13/16 15:56 09/13/16 20:43 09/14/16 07:36 Sodium Level 138mmol/L (136-145) Potassium Level 4.9mmol/L (3.5-5.1) Chloride Level 102mmol/L (98-107) Carbon Dioxide Level 29mmol/L (21-32) Anion Gap 7 (6-14) Blood Urea Nitrogen 40mg/dL (7-20) Creatinine 1.9mg/dL (0.6-1.0) Estimated GFR (Cockcroft-Gault) 25.0 Glucose Level 199mg/dL (70-99) Calcium Level 8.7mg/dL (8.5-10.1) Glucose (Fingerstick) 201mg/dL (70-99) 174mg/dL (70-99) 120mg/dL (70-99) Test 09/14/16 08:00 09/14/16 11:08 Sodium Level 140mmol/L (136-145) Potassium Level 4.5mmol/L (3.5-5.1) Chloride Level 103mmol/L (98-107) Carbon Dioxide Level 26mmol/L (21-32) Anion Gap 11 (6-14) Blood Urea Nitrogen 38mg/dL (7-20) Creatinine 1.8mg/dL (0.6-1.0) Estimated GFR (Cockcroft-Gault) 26.6 BUN/Creatinine Ratio 21 (6-20) Glucose Level 131mg/dL (70-99) Calcium Level 8.6mg/dL (8.5-10.1) Total Bilirubin 0.9mg/dL (0.2-1.0) Aspartate Amino Transf (AST/SGOT) 30U/L (15-37) Alanine Aminotransferase (ALT/SGPT) 19U/L (14-59) Alkaline Phosphatase 97U/L (46-116) Total Protein 6.4g/dL (6.4-8.2) Albumin 2.9g/dL (3.4-5.0) Albumin/Globulin Ratio 0.8 (1.0-1.7) Random Vancomycin Level 9.4mcg/mL Glucose (Fingerstick) 162mg/dL (70-99) Microbiology 09/12/16 Blood Culture - Preliminary, Resulted NO GROWTH AFTER 2 DAYS 09/12/16 Urine Culture - Final, Complete 09/12/16 Urine Culture Result 1 ([facility]) - Final, Complete Medications Current Medications Albuterol/ Ipratropium 3 ml 3 ml 1X ONCE NEB Last administered on 09/11/16 22 :40; Start 09/11/16 at 22:45; Stop 09/11/16 at 22:46; Status DC Levofloxacin/ Dextrose (LEVAQUIN 750mg PREMIX) 150 ml @ 100 mls/hr 1X ONCE IV Last administered on 09/12/16 04:27; Start 09/12/16 at 01:00; Stop 09/12/16 at 02:29; Status DC Albuterol/ Ipratropium (Duoneb) 3 ml PRN Q4HRS PRN NEB SOA; Start 09/12/16 at 00:45; Stop 09/12/16 at 06:00; Status DC Albuterol/ Ipratropium (Duoneb) 3 ml 1X ONCE NEB Last administered on 01:49; Start 09/12/16 at 01:30; Stop 09/12/16 at 01:31; Status DC Acetaminophen/ Hydrocodone Bitart (Lortab 5/325) 1 tab 1X ONCE PO ; Start 09/12 at 01:30; Stop 09/12/16 at 01:31; Status DC Albuterol Sulfate (Ventolin Neb Soln) 2.5 mg PRN Q4HRS PRN NEB SHORTNESS OF BREATH; Start 09/12/16 at 02:00; Stop 09/13/16 at 01:59; Status DC Acetaminophen/ Hydrocodone Bitart (Lortab 7.5/325) 1 tab PRN Q6HRS PRN PO MODERATE PAIN Last administered on 09/14/16 08:40; Start 09/12/16 at 03:45 Insulin Aspart (Novolog) 0-5 UNITS TIDWMEALS SQ Last administered on 09/13/16 17:46; Start 09/12/16 at 08:00 Dextrose 12.5 gm PRN Q15MIN PRN IV SEE COMMENTS; Start 09/12/16 at 03:45 Vancomycin HCl (Vanco Per Pharmacy) 1 each PRN DAILY PRN MC SEE COMMENTS Last administered on 09/14/16 09:04; Start 09/12/16 at 07:45 Albuterol/ Ipratropium (Duoneb) 3 ml RTQID NEB Last administered on 09/14/16 11:44; Start 09/12/16 at 08:00 Aspirin (Children'S Aspirin) 81 mg DAILY PO Last administered on 09/14/16 08: 38; Start 09/12/16 at 09:00 Bumetanide (Bumex) 1 mg NOON PO Last administered on 09/13/16 12:42; Start at 12:00; Stop 09/14/16 at 11:24; Status DC Diphenhydramine HCl (Benadryl) 25 mg HS PO Last administered on 09/13/16 20:40 ; Start 09/12/16 at 21:00 Acetaminophen/ Hydrocodone Bitart (Lortab 7.5/325) 1 tab PRN QHS PRN PO PAIN Last administered on 09/13/16 20:50; Start 09/12/16 at 07:45 Isosorbide Mononitrate (Imdur) 30 mg DAILY16 PO ; Start 09/12/16 at 16:00 Lisinopril (Prinivil) 10 mg DAILY PO ; Start 09/12/16 at 09:00; Stop 09/13/16 at 07:24; Status DC Sertraline HCl (Zoloft) 25 mg DAILY PO Last administered on 09/14/16 08:38; Start 09/12/16 at 09:00 Cyclobenzaprine HCl (Flexeril) 10 mg PRN TID PRN PO MUSCLE SPASMS; Start at 08:00 Multivitamins/ Calcium (Thera M Plus) 1 tab DAILY PO Last administered on 08:38; Start 09/12/16 at 09:00 Fish Oil (Fish Oil) 1,000 mg DAILY PO Last administered on 09/14/16 08:38; Start 09/12/16 at 09:00 Pantoprazole Sodium (Protonix) 40 mg DAILYAC PO Last administered on 09/14/16 08:37; Start 09/12/16 at 08:00 Atorvastatin Calcium 10 mg 10 mg QHS PO Last administered on 09/13/16 20:40; Start 09/12/16 at 21:00 Vancomycin HCl/ Sodium Chloride (Iv Sodium Chloride 0.9% 500ml Bag) 500 ml @ 250 mls/hr 1X ONCE IV Last administered on 09/12/16 08:19; Start 09/12/16 at 08:30; Stop 09/12/16 at 10:29; Status DC Furosemide (Lasix) 40 mg 1X ONCE IVP Last administered on 09/12/16 11:26; Start 09/12/16 at 11:30; Stop 09/12/16 at 11:31; Status DC Vancomycin HCl 1 each 1X ONCE MC ; Start 09/14/16 at 08:00; Stop 09/14/16 at 08 :01; Status DC Sodium Polystyrene Sulfonate (Kayexalate) 15 gm 1X ONCE PO Last administered on 09/13/16 07:59; Start 09/13/16 at 07:30; Stop 09/13/16 at 07:31; Status DC Furosemide (Lasix) 40 mg 1X ONCE IVP Last administered on 09/13/16 07:59; Start 09/13/16 at 07:30; Stop 09/13/16 at 07:31; Status DC Nystatin 1 yusuf 1 yusuf BID TP Last administered on 09/14/16 09:51; Start at 09:00 Vancomycin HCl/ Sodium Chloride (Iv Sodium Chloride 0.9% 250ml) 250 ml @ 167 mls/hr Q48H IV Last administered on 09/14/16 09:51; Start 09/14/16 at 09:30 Bumetanide (Bumex) 2 mg NOON PO ; Start 09/14/16 at 12:00 Active Scripts Active Sertraline Hcl 25 Mg Tablet 25 Mg PO DAILY Reported Bactrim 400-80 Mg Tablet (Sulfamethoxazole/Trimethoprim) 1 Each Tablet 1 Tab PO BID Bactrim 400-80 Mg Tablet (Sulfamethoxazole/Trimethoprim) 1 Each Tablet 1 Tab PO BID Bumetanide 1 Mg Tablet 1 Tab PO NOON Humulin 70-30 Vial (Hum Insulin Nph/Reg Insulin Hm) 100 Unit/1 Ml Vial 15 Unit SQ BIDAC Hydrocodone-Apap 7.5-325 (Hydrocodone Bit/Acetaminophen) 1 Each Tablet 1 Tab PO HS PRN Vitamin D2 (Ergocalciferol (Vitamin D2)) 50,000 Unit Capsule 50,000 Unit PO WEEKLY NEXT DOSE: PER USUAL TIME Prilosec (Omeprazole) 20 Mg Capsule.dr 1 Cap PO BID [place]-3 1,000 Mg Softgel ([place]-3 Fatty Acids/Fish Oil) 1 Each Capsule 1 Each PO DAILY Centrum Silver Tablet (Multivits-Min/Fa/Lycopene/Lut) 1 Each Tablet 1 Each PO DAILY Cyclobenzaprine Hcl 5 Mg Tablet 10 Mg PO TID PRN NEXT DOSE: WHEN NEEDED Benadryl (Diphenhydramine Hcl) 25 Mg Capsule 25 Mg PO HS Pravachol (Pravastatin Sodium) 40 Mg Tablet 40 Mg PO DAILY Potassium Chloride 10 Meq Capsule.er 10 Meq PO DAILY Lisinopril 10 Mg Tablet 10 Mg PO DAILY Imdur (Isosorbide Mononitrate) 30 Mg Tab.er.24h 30 Mg PO DAILY16 Children's Aspirin (Aspirin) 81 Mg Tab.chew 81 Mg PO DAILY Vitals/I & O Vital Sign - Last 24 Hours 09/13/16 09/13/16 09/13/16 09/13/16 12:07 12:15 15:00 16:09 Temp 98.0 98.0 Pulse 68 Resp 20 B/P 129/39 113/31 Pulse Ox 93 O2 Delivery Nasal Cannula Nasal Cannula Nasal Cannula O2 Flow Rate 2.0 3.0 2.0 09/13/16 09/13/16 09/13/16 09/13/16 17:42 19:00 19:36 20:07 Temp 97.9 97.9 Pulse 78 Resp 20 B/P 133/36 Pulse Ox 94 92 O2 Delivery Nasal Cannula Nasal Cannula Nasal Cannula Nasal Cannula O2 Flow Rate 2.0 3.0 3.0 3.0 09/13/16 09/13/16 09/13/16 09/14/16 20:50 21:50 23:00 02:56 Temp 97.9 97.5 97.9 97.5 Pulse 69 68 Resp 20 20 B/P 121/32 128/32 Pulse Ox 92 92 94 91 O2 Delivery Nasal Cannula Nasal Cannula Nasal Cannula Nasal Cannula O2 Flow Rate 3.0 3.0 3.0 3.0 09/14/16 09/14/16 09/14/16 09/14/16 07:00 07:24 08:00 08:40 Temp 98.1 98.1 Pulse 70 Resp 20 24 B/P 119/59 Pulse Ox 96 93 91 O2 Delivery Nasal Cannula Nasal Cannula Nasal Cannula Nasal Cannula O2 Flow Rate 3.0 3.0 3.0 3.0 09/14/16 09/14/16 09/14/16 09:40 11:00 11:45 Temp 98.1 98.1 Pulse 78 Resp 24 22 B/P 120/93 Pulse Ox 91 95 O2 Delivery Nasal Cannula Nasal Cannula Nasal Cannula O2 Flow Rate 3.0 3.0 3.0 Intake and Output 09/13/16 09/13/16 09/14/16 15:00 23:00 07:00 Intake Total 400 ml 1050 ml 120 ml Output Total 700 ml 775 ml Balance 400 ml 350 ml -655 ml CELSA JAVIER MD Sep 14, 2016 12:01
--- NOTE | 2016-09-14 12:27 | PDOC ---
PULMONARY PROGRESS NOTES Subjective no soa Vitals Vital Signs Date Time Temp Pulse Resp B/P Pulse Ox O2 Delivery O2 Flow Rate FiO2 09/14/16 11:45 Nasal Cannula 3.0 09/14/16 11:00 98.1 78 22 120/93 95 98.1 General: Alert, No acute distress Lungs: Other (faint wheezing) Cardiovascular: S1, S2 Abdomen: Soft, Non-tender Neuro Exam: Alert Extremities: No Edema, Other Skin: Warm Labs Laboratory Tests Test 09/12/16 13:58 09/12/16 16:48 09/12/16 21:16 09/13/16 06:00 Troponin I Quantitative 0.133ng/mL (0.000-0.055) Glucose (Fingerstick) 130mg/dL (70-99) 140mg/dL (70-99) Sodium Level 139mmol/L (136-145) Potassium Level 6.0mmol/L (3.5-5.1) Chloride Level 102mmol/L (98-107) Carbon Dioxide Level 29mmol/L (21-32) Anion Gap 8 (6-14) Blood Urea Nitrogen 42mg/dL (7-20) Creatinine 1.9mg/dL (0.6-1.0) Estimated GFR (Cockcroft-Gault) 25.0 Glucose Level 138mg/dL (70-99) Calcium Level 8.7mg/dL (8.5-10.1) Test 09/13/16 07:49 09/13/16 10:43 09/13/16 13:50 09/13/16 15:56 Glucose (Fingerstick) 128mg/dL (70-99) 154mg/dL (70-99) 201mg/dL (70-99) Sodium Level 138mmol/L (136-145) Potassium Level 4.9mmol/L (3.5-5.1) Chloride Level 102mmol/L (98-107) Carbon Dioxide Level 29mmol/L (21-32) Anion Gap 7 (6-14) Blood Urea Nitrogen 40mg/dL (7-20) Creatinine 1.9mg/dL (0.6-1.0) Estimated GFR (Cockcroft-Gault) 25.0 Glucose Level 199mg/dL (70-99) Calcium Level 8.7mg/dL (8.5-10.1) Test 09/13/16 20:43 09/14/16 07:36 09/14/16 08:00 09/14/16 11:08 Glucose (Fingerstick) 174mg/dL (70-99) 120mg/dL (70-99) 162mg/dL (70-99) Sodium Level 140mmol/L (136-145) Potassium Level 4.5mmol/L (3.5-5.1) Chloride Level 103mmol/L (98-107) Carbon Dioxide Level 26mmol/L (21-32) Anion Gap 11 (6-14) Blood Urea Nitrogen 38mg/dL (7-20) Creatinine 1.8mg/dL (0.6-1.0) Estimated GFR (Cockcroft-Gault) 26.6 BUN/Creatinine Ratio 21 (6-20) Glucose Level 131mg/dL (70-99) Calcium Level 8.6mg/dL (8.5-10.1) Total Bilirubin 0.9mg/dL (0.2-1.0) Aspartate Amino Transf (AST/SGOT) 30U/L (15-37) Alanine Aminotransferase (ALT/SGPT) 19U/L (14-59) Alkaline Phosphatase 97U/L (46-116) Total Protein 6.4g/dL (6.4-8.2) Albumin 2.9g/dL (3.4-5.0) Albumin/Globulin Ratio 0.8 (1.0-1.7) Random Vancomycin Level 9.4mcg/mL Laboratory Tests Test 09/13/16 13:50 09/13/16 15:56 09/13/16 20:43 09/14/16 07:36 Sodium Level 138mmol/L (136-145) Potassium Level 4.9mmol/L (3.5-5.1) Chloride Level 102mmol/L (98-107) Carbon Dioxide Level 29mmol/L (21-32) Anion Gap 7 (6-14) Blood Urea Nitrogen 40mg/dL (7-20) Creatinine 1.9mg/dL (0.6-1.0) Estimated GFR (Cockcroft-Gault) 25.0 Glucose Level 199mg/dL (70-99) Calcium Level 8.7mg/dL (8.5-10.1) Glucose (Fingerstick) 201mg/dL (70-99) 174mg/dL (70-99) 120mg/dL (70-99) Test 09/14/16 08:00 09/14/16 11:08 Sodium Level 140mmol/L (136-145) Potassium Level 4.5mmol/L (3.5-5.1) Chloride Level 103mmol/L (98-107) Carbon Dioxide Level 26mmol/L (21-32) Anion Gap 11 (6-14) Blood Urea Nitrogen 38mg/dL (7-20) Creatinine 1.8mg/dL (0.6-1.0) Estimated GFR (Cockcroft-Gault) 26.6 BUN/Creatinine Ratio 21 (6-20) Glucose Level 131mg/dL (70-99) Calcium Level 8.6mg/dL (8.5-10.1) Total Bilirubin 0.9mg/dL (0.2-1.0) Aspartate Amino Transf (AST/SGOT) 30U/L (15-37) Alanine Aminotransferase (ALT/SGPT) 19U/L (14-59) Alkaline Phosphatase 97U/L (46-116) Total Protein 6.4g/dL (6.4-8.2) Albumin 2.9g/dL (3.4-5.0) Albumin/Globulin Ratio 0.8 (1.0-1.7) Random Vancomycin Level 9.4mcg/mL Glucose (Fingerstick) 162mg/dL (70-99) Medications Active Scripts Medications Dose Route/Sig Days Date Category Dose Instructions Bactrim 400-80 Mg Tablet (Sulfamethoxazole/Trimethoprim) 1 Each Tablet 1 Tab PO BID 09/12/16 Reported Bactrim 400-80 Mg Tablet (Sulfamethoxazole/Trimethoprim) 1 Each Tablet 1 Tab PO BID 09/12/16 Reported Bumetanide 1 Mg Tablet 1 Tab PO NOON 02/18/16 Reported Humulin 70-30 Vial (Hum Insulin Nph/Reg Insulin Hm) 100 Unit/1 Ml Vial 15 Unit SQ BIDAC 02/18/16 Reported Sertraline Hcl 25 Mg Tablet 25 Mg PO DAILY 12/21/15 Rx Hydrocodone-Apap 7.5-325 (Hydrocodone Bit/Acetaminophen) 1 Each Tablet 1 Tab PO HS PRN 08/10/15 Reported Vitamin D2 (Ergocalciferol (Vitamin D2)) 50,000 Unit Capsule 50,000 Unit PO WEEKLY 08/10/15 Reported NEXT DOSE: PER USUAL TIME Prilosec (Omeprazole) 20 Mg Capsule.dr 1 Cap PO BID 08/10/15 Reported [place]-3 1,000 Mg Softgel ([place]-3 Fatty Acids/Fish Oil) 1 Each Capsule 1 Each PO DAILY 08/10/15 Reported Centrum Silver Tablet (Multivits-Min/Fa/Lycopene/Lut) 1 Each Tablet 1 Each PO DAILY 08/10/15 Reported Cyclobenzaprine Hcl 5 Mg Tablet 10 Mg PO TID PRN 04/15/14 Reported NEXT DOSE: WHEN NEEDED Benadryl (Diphenhydramine Hcl) 25 Mg Capsule 25 Mg PO HS 01/25/14 Reported Pravachol (Pravastatin Sodium) 40 Mg Tablet 40 Mg PO DAILY 01/25/14 Reported Potassium Chloride 10 Meq Capsule.er 10 Meq PO DAILY 01/24/14 Reported Lisinopril 10 Mg Tablet 10 Mg PO DAILY 01/24/14 Reported Imdur (Isosorbide Mononitrate) 30 Mg Tab.er.24h 30 Mg PO DAILY16 01/24/14 Reported Children's Aspirin (Aspirin) 81 Mg Tab.chew 81 Mg PO DAILY 01/24/14 Reported Impression . 1. Dyspnea with acute hypoxic respiratory failure with bilateral interstitial infiltrates. I suspect that this is secondary to [id number] diastolic heart failure/ MR. noncontrast CT chest with mild interstitial infiltrates / basal effusions related to CHF 2. 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 Status post radiation. 3. History of tobacco use, suspect underlying chronic obstructive pulmonary disease. 4. Renal insufficiency. 5. Increased troponin levels. Plan . 1. Would continue with present oxygen. repeat cxr today (wheezing) 2. Diuresis. 3. noncontrast CT chest reviewed. increase mass size RUL. follow oncology recommendations 4. echocardiogram reviewed. severe mitral calcification. cardiology to follow 5. Bronchodilators. 6. Treatment of cellulitis per primary care. 7. Oncology to f/u on lung cancer. SETH MULLINS MD Sep 14, 2016 12:27
[2016-09-14] MEDS: BUMETANIDE 1 MG TABLET PO SCH (12:32)
--- NOTE | 2016-09-14 14:42 | RAD ---
Portable chest, 09/14/2016: History: Congestive heart failure Comparison is made to a study from 09/11/2016. A left-sided transvenous pacemaker is again noted. Three leads extend into the heart. One of those leads is again noted to be fractured at the left upper chest wall level. The heart is enlarged. The pulmonary vascularity appears congested. There are increasing basilar opacities compatible with pleural fluid and underlying atelectasis/infiltrate. There is no evidence of pneumothorax. There is generalized bony demineralization. IMPRESSION: Worsening congestive heart failure with moderate-sized bilateral pleural effusions.
[2016-09-14 15:00] VITALS: BP_SYST 125; BP_SYST 126; BP_DIAS 25; BP_DIAS 27
[2016-09-14] MEDS: ISOSORBIDE MONONITRATE ER 30 MG TAB.ER.24H PO SCH (16:18)
[2016-09-14 19:00] VITALS: BP 105/30
[2016-09-14] MEDS: DIPHENHYDRAMINE HCL 25 MG CAPSULE PO SCH (21:11)
[2016-09-14] MEDS: ATORVASTATIN CALCIUM 10 MG TABLET. PO SCH (21:12)
--- NOTE | 2016-09-14 22:30 | CONS ---
DATE OF CONSULTATION: 09/14/2016 REFERRING PHYSICIAN: Dr. Petra Richardson. 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 She received 40 Gy of palliative radiation to the abdominal wall mass here in April 2016 with excellent treatment response. She is now admitted here on 09/11/2016 for increasing shortness of breath and lower extremity swelling associated with cellulitis. She was scheduled to see us in followup. We are now seeing her here as an inpatient in followup instead. Following our palliative radiation therapy in April 2016, she had excellent treatment response and resolution of her pain at that site. Her known right upper lobe primary on CT scan of the chest from 09/12/2016 revealed an increase from 10 mm in size from March 2014 CT to 18 mm in size at this time with no associated post-obstructive pneumonitis or hilar adenopathy. There was cardiomegaly and bilateral pleural effusions and bibasilar atelectasis, likely related to underlying congestive heart failure. Since medical management was instituted during this admission, she is markedly better and feels better overall. She notes no abdominal wall pain or pain elsewhere of significance. She has been seen in the past by Dr. Petra Richardson and was clearly not a candidate for any palliative systemic treatment in light of her age and overall performance status. PAST MEDICAL HISTORY: Remarkable for coronary artery disease status post bypass surgery in 2001, pacemaker, diabetes, osteoarthritis, gastroesophageal reflux disease, peripheral vascular disease, hyperlipidemia, hemorrhoidectomy, total abdominal hysterectomy, bilateral salpingo-oophorectomy, cholecystectomy, and three lumbar back surgeries in the past. ALLERGIES: MORPHINE, PENICILLIN, ASPIRIN and ADHESIVE TAPE. MEDICATIONS: See hospital chart. FAMILY HISTORY: Father had lung cancer. Brother had prostate cancer. She had a son who from metastatic prostate cancer with bone metastases at age 67. She had a daughter who had a history of breast cancer treated with chemotherapy and radiation, now free of disease. SOCIAL HISTORY: , lives with her daughter, Cristina Mitchell, in [place]. She worked as a mobile product manager for many years. She has six children, five living. No significant hobbies. She has a distant history of smoking 1 pack a day for 50 years, quit in 1997. PHYSICAL EXAMINATION: GENERAL: Revealed an elderly, pleasant, conversant woman in no acute distress. HEENT: Unremarkable. No scleral icterus. ABDOMEN: Revealed induration and minimal erythema in the upper right quadrant abdominal wall with no discrete mass or tenderness. No other cutaneous masses noted elsewhere on limited exam. EXTREMITIES: Revealed bandaged lower extremities with minimal pedal edema, improved from admission by report. LABORATORY STUDIES: From 09/12/2016, hemoglobin 10.4, white count 5100, platelet count 106,000. Chemistry panel from 09/13/2016, normal electrolytes with a potassium of 4.9, creatinine 1.9, glucose 199. ASSESSMENT AND PLAN: In summary, my impression is that of stage IV (T1N0M1) adenocarcinoma of the right lung with symptomatic abdominal wall metastases biopsied in February 2016. She had an excellent response to palliative radiation therapy to that site, now with only stable residual induration with no discrete mass and resolution of her pain. She has slow indolent progression of her primary lesion which is asymptomatic. She has significant other comorbidities including congestive heart failure, peripheral vascular disease with cellulitis, and renal insufficiency. She is improved with medical management since admission. At this time, no further palliative treatment is indicated. Certainly in the event she has disease progression that is symptomatic at her primary site or elsewhere, reevaluation would be warranted at that time. I discussed this in detail with the patient and her daughter. At this time, we have not scheduled additional followup, but we will be happy to see her any time in the future if necessary. Thank you again for allowing us to participate in her followup care. TAYLA MUHAMMAD MD DR: JACLYN/krzysztof JOB#: [id number] / [id number] JOAQUIM Spencer MD, CELSA EPSTEIN, JAIRON LOUIE
[2016-09-14 23:00] VITALS: BP 130/46
[2016-09-15 03:00] VITALS: BP 151/50
[2016-09-15 05:18] LABS: CALCIUM 8.5 mg/dL (8.5-10.1); CREATININE 1.8 mg/dL (0.6-1.0); GFR 26.6; POTASSIUM 4.7 mmol/L (3.5-5.1)
[2016-09-15] MEDS: PANTOPRAZOLE 40 MG TABLET. PO SCH (05:52)
[2016-09-15] MEDS: HYDROCODONE/APAP 7.5/325MG TABLET. PO PRN ×2 (05:52→22:25)
[2016-09-15 07:00] VITALS: BP 120/42
[2016-09-15] MEDS: IPRATRPIUM/ALBUTEROL 0.5/2.5MG 3 ML NEBU. NEB SCH ×4 (08:04→19:31)
[2016-09-15] MEDS ORDERED: BUMETANIDE 1 MG/4 ML VIAL. IV STA (09:03)
--- NOTE | 2016-09-15 09:14 | PDOC ---
PROGRESS NOTES Subjective Subjective Patient feeling better still actively SOB. Objective Objective Vital Signs Date Time Temp Pulse Resp B/P Pulse Ox O2 Delivery O2 Flow Rate FiO2 09/15/16 08:07 97 Nasal Cannula 3.0 09/15/16 07:00 97.6 140 18 120/42 97.6 Intake and Output 09/15/16 07:00 Intake Total 1410 ml Output Total 875 ml Balance 535 ml Intake Oral 1410 ml Output Urine Total 875 ml Physical Exam Abdomen: Normal bowel sounds Heart: Regular rate, Other (Paced) Extremities: No edema General: Alert Lungs: Other (wheezes bilaterally) Assessment Assessment Problems Medical Problems: (1) Acute and chronic respiratory failure Status: Acute (2) Acute on chronic renal failure Status: Acute (3) Congestive heart failure Status: Acute (4) Hyperkalemia Status: Acute (5) Hypoglycemia associated with diabetes Status: Acute 1. Acute on chronic respiratory failure, probably multifactorial 2. Acute on chronic diastolic congestive heart failure with severe pulmonary hypertension: 3. Acute renal failure on chronic kidney disease: 4. Cellulitis, lower extremities: Appears to be improving. 5. Lung CA with mets stable and asymptomatic not a candidate for chemo and no palliative treatment needed at this time 6. Diabetes mellitus type 2: Stable. 7. Possible pacer lead disruption with subtle lucency noted on chest x-ray: Per cardiology 8. AECOPD 9. Valvular heart Dz Plan Plan of Care Continue Pulm Toilet repeat CXR add po steroids continue PT home when stable with H/H - family refusing SNU Comment Review of Relevant I have reviewed the following items edna (where applicable) has been applied. Labs Laboratory Tests Test 09/13/16 10:43 09/13/16 13:50 09/13/16 15:56 09/13/16 20:43 Glucose (Fingerstick) 154mg/dL (70-99) 201mg/dL (70-99) 174mg/dL (70-99) Sodium Level 138mmol/L (136-145) Potassium Level 4.9mmol/L (3.5-5.1) Chloride Level 102mmol/L (98-107) Carbon Dioxide Level 29mmol/L (21-32) Anion Gap 7 (6-14) Blood Urea Nitrogen 40mg/dL (7-20) Creatinine 1.9mg/dL (0.6-1.0) Estimated GFR (Cockcroft-Gault) 25.0 Glucose Level 199mg/dL (70-99) Calcium Level 8.7mg/dL (8.5-10.1) Test 09/14/16 07:36 09/14/16 08:00 09/14/16 11:08 09/14/16 16:59 Glucose (Fingerstick) 120mg/dL (70-99) 162mg/dL (70-99) 192mg/dL (70-99) Sodium Level 140mmol/L (136-145) Potassium Level 4.5mmol/L (3.5-5.1) Chloride Level 103mmol/L (98-107) Carbon Dioxide Level 26mmol/L (21-32) Anion Gap 11 (6-14) Blood Urea Nitrogen 38mg/dL (7-20) Creatinine 1.8mg/dL (0.6-1.0) Estimated GFR (Cockcroft-Gault) 26.6 BUN/Creatinine Ratio 21 (6-20) Glucose Level 131mg/dL (70-99) Calcium Level 8.6mg/dL (8.5-10.1) Total Bilirubin 0.9mg/dL (0.2-1.0) Aspartate Amino Transf (AST/SGOT) 30U/L (15-37) Alanine Aminotransferase (ALT/SGPT) 19U/L (14-59) Alkaline Phosphatase 97U/L (46-116) Total Protein 6.4g/dL (6.4-8.2) Albumin 2.9g/dL (3.4-5.0) Albumin/Globulin Ratio 0.8 (1.0-1.7) Random Vancomycin Level 9.4mcg/mL Test 09/14/16 21:02 09/15/16 04:14 09/15/16 08:20 Glucose (Fingerstick) 204mg/dL (70-99) 166mg/dL (70-99) Sodium Level 140mmol/L (136-145) Potassium Level 4.7mmol/L (3.5-5.1) Chloride Level 103mmol/L (98-107) Carbon Dioxide Level 30mmol/L (21-32) Anion Gap 7 (6-14) Blood Urea Nitrogen 43mg/dL (7-20) Creatinine 1.8mg/dL (0.6-1.0) Estimated GFR (Cockcroft-Gault) 26.6 Glucose Level 175mg/dL (70-99) Calcium Level 8.5mg/dL (8.5-10.1) Laboratory Tests Test 09/14/16 11:08 09/14/16 16:59 09/14/16 21:02 09/15/16 04:14 Glucose (Fingerstick) 162mg/dL (70-99) 192mg/dL (70-99) 204mg/dL (70-99) Sodium Level 140mmol/L (136-145) Potassium Level 4.7mmol/L (3.5-5.1) Chloride Level 103mmol/L (98-107) Carbon Dioxide Level 30mmol/L (21-32) Anion Gap 7 (6-14) Blood Urea Nitrogen 43mg/dL (7-20) Creatinine 1.8mg/dL (0.6-1.0) Estimated GFR (Cockcroft-Gault) 26.6 Glucose Level 175mg/dL (70-99) Calcium Level 8.5mg/dL (8.5-10.1) Test 09/15/16 08:20 Glucose (Fingerstick) 166mg/dL (70-99) Microbiology 09/12/16 Blood Culture - Preliminary, Resulted NO GROWTH AFTER 3 DAYS 09/12/16 Urine Culture - Final, Complete 09/12/16 Urine Culture Result 1 (MAMI) - Final, Complete Medications Current Medications Albuterol/ Ipratropium 3 ml 3 ml 1X ONCE NEB Last administered on 09/11/16 22 :40; Start 09/11/16 at 22:45; Stop 09/11/16 at 22:46; Status DC Levofloxacin/ Dextrose (LEVAQUIN 750mg PREMIX) 150 ml @ 100 mls/hr 1X ONCE IV Last administered on 09/12/16 04:27; Start 09/12/16 at 01:00; Stop 09/12/16 at 02:29; Status DC Albuterol/ Ipratropium (Duoneb) 3 ml PRN Q4HRS PRN NEB SOA; Start 09/12/16 at 00:45; Stop 09/12/16 at 06:00; Status DC Albuterol/ Ipratropium (Duoneb) 3 ml 1X ONCE NEB Last administered on 01:49; Start 09/12/16 at 01:30; Stop 09/12/16 at 01:31; Status DC Acetaminophen/ Hydrocodone Bitart (Lortab 5/325) 1 tab 1X ONCE PO ; Start 09/12 at 01:30; Stop 09/12/16 at 01:31; Status DC Albuterol Sulfate (Ventolin Neb Soln) 2.5 mg PRN Q4HRS PRN NEB SHORTNESS OF BREATH; Start 09/12/16 at 02:00; Stop 09/13/16 at 01:59; Status DC Acetaminophen/ Hydrocodone Bitart (Lortab 7.5/325) 1 tab PRN Q6HRS PRN PO MODERATE PAIN Last administered on 09/15/16 05:52; Start 09/12/16 at 03:45 Insulin Aspart (Novolog) 0-5 UNITS TIDWMEALS SQ Last administered on 09/14/16 17:09; Start 09/12/16 at 08:00 Dextrose 12.5 gm PRN Q15MIN PRN IV SEE COMMENTS; Start 09/12/16 at 03:45 Vancomycin HCl (Vanco Per Pharmacy) 1 each PRN DAILY PRN MC SEE COMMENTS Last administered on 09/14/16 09:04; Start 09/12/16 at 07:45 Albuterol/ Ipratropium (Duoneb) 3 ml RTQID NEB Last administered on 09/15/16 08:04; Start 09/12/16 at 08:00 Aspirin (Children'S Aspirin) 81 mg DAILY PO Last administered on 09/14/16 08: 38; Start 09/12/16 at 09:00 Bumetanide (Bumex) 1 mg NOON PO Last administered on 09/13/16 12:42; Start at 12:00; Stop 09/14/16 at 11:24; Status DC Diphenhydramine HCl (Benadryl) 25 mg HS PO Last administered on 09/14/16 21:11 ; Start 09/12/16 at 21:00 Acetaminophen/ Hydrocodone Bitart (Lortab 7.5/325) 1 tab PRN QHS PRN PO PAIN Last administered on 09/13/16 20:50; Start 09/12/16 at 07:45 Isosorbide Mononitrate (Imdur) 30 mg DAILY16 PO Last administered on 09/14/16 16:18; Start 09/12/16 at 16:00 Lisinopril (Prinivil) 10 mg DAILY PO ; Start 09/12/16 at 09:00; Stop 09/13/16 at 07:24; Status DC Sertraline HCl (Zoloft) 25 mg DAILY PO Last administered on 09/14/16 08:38; Start 09/12/16 at 09:00 Cyclobenzaprine HCl (Flexeril) 10 mg PRN TID PRN PO MUSCLE SPASMS; Start at 08:00 Multivitamins/ Calcium (Thera M Plus) 1 tab DAILY PO Last administered on 08:38; Start 09/12/16 at 09:00 Fish Oil (Fish Oil) 1,000 mg DAILY PO Last administered on 09/14/16 08:38; Start 09/12/16 at 09:00 Pantoprazole Sodium (Protonix) 40 mg DAILYAC PO Last administered on 09/15/16 05:52; Start 09/12/16 at 08:00 Atorvastatin Calcium 10 mg 10 mg QHS PO Last administered on 09/14/16 21:12; Start 09/12/16 at 21:00 Vancomycin HCl/ Sodium Chloride (Iv Sodium Chloride 0.9% 500ml Bag) 500 ml @ 250 mls/hr 1X ONCE IV Last administered on 09/12/16 08:19; Start 09/12/16 at 08:30; Stop 09/12/16 at 10:29; Status DC Furosemide (Lasix) 40 mg 1X ONCE IVP Last administered on 09/12/16 11:26; Start 09/12/16 at 11:30; Stop 09/12/16 at 11:31; Status DC Vancomycin HCl 1 each 1X ONCE MC ; Start 09/14/16 at 08:00; Stop 09/14/16 at 08 :01; Status DC Sodium Polystyrene Sulfonate (Kayexalate) 15 gm 1X ONCE PO Last administered on 09/13/16 07:59; Start 09/13/16 at 07:30; Stop 09/13/16 at 07:31; Status DC Furosemide (Lasix) 40 mg 1X ONCE IVP Last administered on 09/13/16 07:59; Start 09/13/16 at 07:30; Stop 09/13/16 at 07:31; Status DC Nystatin 1 yusuf 1 yusuf BID TP Last administered on 09/14/16 21:13; Start at 09:00 Vancomycin HCl/ Sodium Chloride (Iv Sodium Chloride 0.9% 250ml) 250 ml @ 167 mls/hr Q48H IV Last administered on 09/14/16 09:51; Start 09/14/16 at 09:30 Bumetanide (Bumex) 2 mg NOON PO Last administered on 09/14/16 12:32; Start at 12:00 Active Scripts Active Sertraline Hcl 25 Mg Tablet 25 Mg PO DAILY Reported Bactrim 400-80 Mg Tablet (Sulfamethoxazole/Trimethoprim) 1 Each Tablet 1 Tab PO BID Bactrim 400-80 Mg Tablet (Sulfamethoxazole/Trimethoprim) 1 Each Tablet 1 Tab PO BID Bumetanide 1 Mg Tablet 1 Tab PO NOON Humulin 70-30 Vial (Hum Insulin Nph/Reg Insulin Hm) 100 Unit/1 Ml Vial 15 Unit SQ BIDAC Hydrocodone-Apap 7.5-325 (Hydrocodone Bit/Acetaminophen) 1 Each Tablet 1 Tab PO HS PRN Vitamin D2 (Ergocalciferol (Vitamin D2)) 50,000 Unit Capsule 50,000 Unit PO WEEKLY NEXT DOSE: PER USUAL TIME Prilosec (Omeprazole) 20 Mg Capsule.dr 1 Cap PO BID [place]-3 1,000 Mg Softgel ([place]-3 Fatty Acids/Fish Oil) 1 Each Capsule 1 Each PO DAILY Centrum Silver Tablet (Multivits-Min/Fa/Lycopene/Lut) 1 Each Tablet 1 Each PO DAILY Cyclobenzaprine Hcl 5 Mg Tablet 10 Mg PO TID PRN NEXT DOSE: WHEN NEEDED Benadryl (Diphenhydramine Hcl) 25 Mg Capsule 25 Mg PO HS Pravachol (Pravastatin Sodium) 40 Mg Tablet 40 Mg PO DAILY Potassium Chloride 10 Meq Capsule.er 10 Meq PO DAILY Lisinopril 10 Mg Tablet 10 Mg PO DAILY Imdur (Isosorbide Mononitrate) 30 Mg Tab.er.24h 30 Mg PO DAILY16 Children's Aspirin (Aspirin) 81 Mg Tab.chew 81 Mg PO DAILY Vitals/I & O Vital Sign - Last 24 Hours 09/14/16 09/14/16 09/14/16 09/14/16 11:00 11:45 15:00 15:00 Temp 98.1 97.8 98.1 97.8 Pulse 78 76 Resp 22 22 B/P 120/93 125/25 126/27 Pulse Ox 95 93 O2 Delivery Nasal Cannula Nasal Cannula Nasal Cannula O2 Flow Rate 3.0 3.0 3.0 09/14/16 09/14/16 09/14/16 09/14/16 15:26 16:18 16:19 17:19 Pulse 76 Resp 20 20 B/P 125/25 Pulse Ox 95 O2 Delivery Nasal Cannula Nasal Cannula O2 Flow Rate 3.0 3.0 09/14/16 09/14/16 09/14/16 09/14/16 19:00 19:50 20:00 23:00 Temp 97.9 97.7 97.9 97.7 Pulse 68 71 Resp 20 20 B/P 105/30 130/46 Pulse Ox 93 95 93 O2 Delivery Nasal Cannula Nasal Cannula Nasal Cannula Nasal Cannula O2 Flow Rate 3.0 3.0 3.0 3.0 09/15/16 09/15/16 09/15/16 09/15/16 03:00 05:52 06:52 07:00 Temp 97.9 97.6 97.9 97.6 Pulse 69 140 Resp 20 18 B/P 151/50 120/42 Pulse Ox 97 97 90 O2 Delivery Nasal Cannula Room Air Nasal Cannula Nasal Cannula O2 Flow Rate 3.0 3.0 3.0 09/15/16 08:07 Pulse Ox 97 O2 Delivery Nasal Cannula O2 Flow Rate 3.0 Intake and Output 09/14/16 09/14/16 09/15/16 15:00 23:00 07:00 Intake Total 500 ml 850 ml 60 ml Output Total 525 ml 350 ml Balance 500 ml 325 ml -290 ml JOAQUIM JIMENEZ MD Sep 15, 2016 09:13
[2016-09-15] MEDS ORDERED: PREDNISONE 20 MG TABLET PO ONE (09:30)
[2016-09-15] MEDS: NYSTATIN TOPICAL POWDER 15GM BOTTLE. TP SCH ×2 (09:35→22:24)
[2016-09-15] MEDS: ASPIRIN 81 MG TAB.CHEW PO SCH (10:05)
[2016-09-15] MEDS: OMEGA-3 FATTY ACIDS/FISH OIL 1,000 MG CAPSULE. PO SCH (10:05)
[2016-09-15] MEDS: SERTRALINE 25 MG TABLET. PO SCH (10:06)
[2016-09-15] MEDS: MULTIVITAMIN with MINERAL TABLET. PO SCH (10:06)
[2016-09-15] MEDS: INSULIN ASPART 300 UNITS/3 ML INSULN.PEN SQ SCH ×3 (10:12→17:07)
--- NOTE | 2016-09-15 10:40 | PDOC ---
Renal-Progress Notes Subjective Notes Notes STILL SOB History of Present Illness Hx of present illness NO CHANGE Vitals Vitals Vital Signs Date Time Temp Pulse Resp B/P Pulse Ox O2 Delivery O2 Flow Rate FiO2 09/15/16 08:07 97 Nasal Cannula 3.0 09/15/16 07:00 97.6 140 18 120/42 97.6 Weight Weight [ ] I.O. Intake and Output Intake and Output 09/15/16 07:00 Intake Total 1410 ml Output Total 875 ml Balance 535 ml Intake Oral 1410 ml Output Urine Total 875 ml Labs Labs Laboratory Tests Test 09/14/16 11:08 09/14/16 16:59 09/14/16 21:02 09/15/16 04:14 Glucose (Fingerstick) 162mg/dL (70-99) 192mg/dL (70-99) 204mg/dL (70-99) Sodium Level 140mmol/L (136-145) Potassium Level 4.7mmol/L (3.5-5.1) Chloride Level 103mmol/L (98-107) Carbon Dioxide Level 30mmol/L (21-32) Anion Gap 7 (6-14) Blood Urea Nitrogen 43mg/dL (7-20) Creatinine 1.8mg/dL (0.6-1.0) Estimated GFR (Cockcroft-Gault) 26.6 Glucose Level 175mg/dL (70-99) Calcium Level 8.5mg/dL (8.5-10.1) Test 09/15/16 08:20 Glucose (Fingerstick) 166mg/dL (70-99) Micro Micro Microbiology 09/12/16 Blood Culture - Preliminary, Resulted NO GROWTH AFTER 3 DAYS 09/12/16 Urine Culture - Final, Complete 09/12/16 Urine Culture Result 1 (MAMI) - Final, Complete Review of Systems Constitutional: yes: alert, oriented Ears/Nose/Throat: Yes: no symptom reported Eyes: Yes: no symptom reported Pulmonary: Yes dyspnea Cardiovascular: Yes no symptom reported Gastrointestional: Yes: no symptom reported Genitourinary: Yes: no symptom reported Musculoskeletal: Yes: muscle stiffness Physical Exam General Appearance: no apparent distress Skin: warm Respiratory: decreased breath sounds Heart: S1S2, RRR Abdomen: soft, bowel sounds present Genitourinary: bladder flat Neurology: alert, oriented Musculoskeletal: Weakness, Swelling, Stiffness, Other (back pain) Assessment Assessment IMP GUME - BETTER WITH CR OF 1.8 CKD STAGE 3 WITH CR OF 1.3-1.5 HYPERKALEMIA-RESOLVED LLE CELLULITIS STAGE 4 LUNG CA PLEURAL EFFUSIONS PULMONARY HTN MILD HYPERVOLEMIA PLAN SUPPORTIVE CARE CONT BUMEX PO IV BUMEX ONCE THIS AM WILL FOLLOW [facility]AMP PANIAGUA MD Sep 15, 2016 10:40
--- NOTE | 2016-09-15 11:33 | PDOC ---
PULMONARY PROGRESS NOTES Subjective no soa Vitals Vital Signs Date Time Temp Pulse Resp B/P Pulse Ox O2 Delivery O2 Flow Rate FiO2 09/15/16 08:07 97 Nasal Cannula 3.0 09/15/16 07:00 97.6 140 18 120/42 97.6 General: Alert, No acute distress Lungs: Other (faint wheezing) Cardiovascular: S1, S2 Abdomen: Soft, Non-tender Neuro Exam: Alert Extremities: No Edema, Other Skin: Warm Labs Laboratory Tests Test 09/13/16 13:50 09/13/16 15:56 09/13/16 20:43 09/14/16 07:36 Sodium Level 138mmol/L (136-145) Potassium Level 4.9mmol/L (3.5-5.1) Chloride Level 102mmol/L (98-107) Carbon Dioxide Level 29mmol/L (21-32) Anion Gap 7 (6-14) Blood Urea Nitrogen 40mg/dL (7-20) Creatinine 1.9mg/dL (0.6-1.0) Estimated GFR (Cockcroft-Gault) 25.0 Glucose Level 199mg/dL (70-99) Calcium Level 8.7mg/dL (8.5-10.1) Glucose (Fingerstick) 201mg/dL (70-99) 174mg/dL (70-99) 120mg/dL (70-99) Test 09/14/16 08:00 09/14/16 11:08 09/14/16 16:59 09/14/16 21:02 Sodium Level 140mmol/L (136-145) Potassium Level 4.5mmol/L (3.5-5.1) Chloride Level 103mmol/L (98-107) Carbon Dioxide Level 26mmol/L (21-32) Anion Gap 11 (6-14) Blood Urea Nitrogen 38mg/dL (7-20) Creatinine 1.8mg/dL (0.6-1.0) Estimated GFR (Cockcroft-Gault) 26.6 BUN/Creatinine Ratio 21 (6-20) Glucose Level 131mg/dL (70-99) Calcium Level 8.6mg/dL (8.5-10.1) Total Bilirubin 0.9mg/dL (0.2-1.0) Aspartate Amino Transf (AST/SGOT) 30U/L (15-37) Alanine Aminotransferase (ALT/SGPT) 19U/L (14-59) Alkaline Phosphatase 97U/L (46-116) Total Protein 6.4g/dL (6.4-8.2) Albumin 2.9g/dL (3.4-5.0) Albumin/Globulin Ratio 0.8 (1.0-1.7) Random Vancomycin Level 9.4mcg/mL Glucose (Fingerstick) 162mg/dL (70-99) 192mg/dL (70-99) 204mg/dL (70-99) Test 09/15/16 04:14 09/15/16 08:20 Sodium Level 140mmol/L (136-145) Potassium Level 4.7mmol/L (3.5-5.1) Chloride Level 103mmol/L (98-107) Carbon Dioxide Level 30mmol/L (21-32) Anion Gap 7 (6-14) Blood Urea Nitrogen 43mg/dL (7-20) Creatinine 1.8mg/dL (0.6-1.0) Estimated GFR (Cockcroft-Gault) 26.6 Glucose Level 175mg/dL (70-99) Calcium Level 8.5mg/dL (8.5-10.1) Glucose (Fingerstick) 166mg/dL (70-99) Laboratory Tests Test 09/14/16 16:59 09/14/16 21:02 09/15/16 04:14 09/15/16 08:20 Glucose (Fingerstick) 192mg/dL (70-99) 204mg/dL (70-99) 166mg/dL (70-99) Sodium Level 140mmol/L (136-145) Potassium Level 4.7mmol/L (3.5-5.1) Chloride Level 103mmol/L (98-107) Carbon Dioxide Level 30mmol/L (21-32) Anion Gap 7 (6-14) Blood Urea Nitrogen 43mg/dL (7-20) Creatinine 1.8mg/dL (0.6-1.0) Estimated GFR (Cockcroft-Gault) 26.6 Glucose Level 175mg/dL (70-99) Calcium Level 8.5mg/dL (8.5-10.1) Medications Active Scripts Medications Dose Route/Sig Days Date Category Dose Instructions Bactrim 400-80 Mg Tablet (Sulfamethoxazole/Trimethoprim) 1 Each Tablet 1 Tab PO BID 09/12/16 Reported Bactrim 400-80 Mg Tablet (Sulfamethoxazole/Trimethoprim) 1 Each Tablet 1 Tab PO BID 09/12/16 Reported Bumetanide 1 Mg Tablet 1 Tab PO NOON 02/18/16 Reported Humulin 70-30 Vial (Hum Insulin Nph/Reg Insulin Hm) 100 Unit/1 Ml Vial 15 Unit SQ BIDAC 02/18/16 Reported Sertraline Hcl 25 Mg Tablet 25 Mg PO DAILY 12/21/15 Rx Hydrocodone-Apap 7.5-325 (Hydrocodone Bit/Acetaminophen) 1 Each Tablet 1 Tab PO HS PRN 08/10/15 Reported Vitamin D2 (Ergocalciferol (Vitamin D2)) 50,000 Unit Capsule 50,000 Unit PO WEEKLY 08/10/15 Reported NEXT DOSE: PER USUAL TIME Prilosec (Omeprazole) 20 Mg Capsule.dr 1 Cap PO BID 08/10/15 Reported [place]-3 1,000 Mg Softgel ([place]-3 Fatty Acids/Fish Oil) 1 Each Capsule 1 Each PO DAILY 08/10/15 Reported Centrum Silver Tablet (Multivits-Min/Fa/Lycopene/Lut) 1 Each Tablet 1 Each PO DAILY 08/10/15 Reported Cyclobenzaprine Hcl 5 Mg Tablet 10 Mg PO TID PRN 04/15/14 Reported NEXT DOSE: WHEN NEEDED Benadryl (Diphenhydramine Hcl) 25 Mg Capsule 25 Mg PO HS 01/25/14 Reported Pravachol (Pravastatin Sodium) 40 Mg Tablet 40 Mg PO DAILY 01/25/14 Reported Potassium Chloride 10 Meq Capsule.er 10 Meq PO DAILY 01/24/14 Reported Lisinopril 10 Mg Tablet 10 Mg PO DAILY 01/24/14 Reported Imdur (Isosorbide Mononitrate) 30 Mg Tab.er.24h 30 Mg PO DAILY16 01/24/14 Reported Children's Aspirin (Aspirin) 81 Mg Tab.chew 81 Mg PO DAILY 01/24/14 Reported Comments CXR 09/14 Worsening CHF Impression . 1. Dyspnea with acute hypoxic respiratory failure with bilateral interstitial infiltrates. I suspect that this is secondary to [id number] diastolic heart failure/ MR. noncontrast CT chest with mild interstitial infiltrates / basal effusions related to CHF/ CXR with worsening CHF 1/26 2. History of stage IV lung cancer with metastasis to the abdominal wall. Status post radiation. 3. History of tobacco use, suspect underlying chronic obstructive pulmonary disease. 4. Renal insufficiency. 5. Increased troponin levels. Plan . 1. Would continue with present oxygen. repeat cxr 09/14 with worsening CHF ( wheezing) 2. Diuresis. extra lasix today 3. noncontrast CT chest reviewed. increase mass size RUL. follow oncology recommendations, no further chemo 4. echocardiogram reviewed. severe mitral calcification. cardiology to address severity of mitral valve 5. Bronchodilators. 6. Treatment of cellulitis per primary care. 7. Oncology to f/u on lung cancer. SETH MULLINS MD Sep 15, 2016 11:33
[2016-09-15 11:51] VITALS: BP 123/69
[2016-09-15] MEDS ORDERED: FUROSEMIDE 40 MG/4 ML VIAL IVP ONE (12:00)
[2016-09-15] MEDS: BUMETANIDE 1 MG TABLET PO SCH (12:19)
[2016-09-15] MEDS: VANCOMYCIN PER PHARMACY MC PRN (12:50)
--- NOTE | 2016-09-15 13:14 | RAD ---
Indication: CHF. Time of exam 1304 hours. Comparison is made with prior study from 09/14/2016. The heart is enlarged but stable. There are changes of median sternotomy. Cardiac pacer remains in place. Bibasilar infiltrates and pleural effusions show mild improvement when compared with yesterday's exam. Congestive changes have improved. There is no pneumothorax. Impression: Improvement in congestive changes when compared with exam one day earlier.
--- NOTE | 2016-09-15 13:51 | PDOC ---
PROGRESS NOTES Subjective Subjective PT A&Ox3, sitting in chair with son by her side. States that she was feeling short of breath earlier today. Son states that primary doctor visited and ordered more Lasix. She denies having any chest pain. C/o pain to her left leg which is being treated by wound care. Objective Objective Vital Signs Date Time Temp Pulse Resp B/P Pulse Ox O2 Delivery O2 Flow Rate FiO2 09/15/16 11:51 97.8 73 18 123/69 96 Nasal Cannula 3.0 97.8 Intake and Output 09/15/16 07:00 Intake Total 1410 ml Output Total 875 ml Balance 535 ml Intake Oral 1410 ml Output Urine Total 875 ml Physical Exam Abdomen: Normal bowel sounds, Soft, No tenderness, No hepatosplenomegaly, No masses Heart: Regular rate, Normal S1, Normal S2, No murmurs, Gallops Extremities: No tenderness/swelling, Other (cellulitis left lower ext) General: Alert, Oriented X3, Cooperative, No acute distress Lungs: Other (wheezes throughout) Neck: Supple, No JVD, No thyromegaly, Other (+ bruit left carotid) Assessment Assessment The patient complains of leg pain. She is still very short of breath. Her echocardiogram showed: There is mild concentric left ventricular hypertrophy. The Ejection Fraction is 65%. There is a pacemaker lead in the right ventricle. The left atrium is severely dilated. The right atrium is moderately dilated. The aortic valve is moderately sclerotic. There is no significant aortic valvular stenosis. Doppler and Color Flow revealed mild to moderate mitral regurgitation. There is moderate mitral valve stenosis. Mitral annular calcification is severe. The mitral valve leaflets are calcified. Doppler and Color Flow revealed severe tricuspid regurgitation. There is severe pulmonary hypertension. The PA pressure was estimated at 82 mmHg. The pulmonic valve is not well visualized. There is moderate left pleural effusion. There is no evidence of significant pericardial effusion. The amount of pulmonary hypertension is out of proportion to the amount of mitral insufficiency that was seen. If the patient would be willing to go through surgery may need to consider doing a KAR to further evaluate the mitral insufficiency. In view of her age and the severity of her pulmonary hypertension she is not a very good surgical candidate At this time I would continue to treat the infection and continue with medical treatment and diuresis. Problems Medical Problems: (1) Acute and chronic respiratory failure Status: Acute (2) Acute on chronic renal failure Status: Acute (3) Congestive heart failure Status: Acute (4) Hyperkalemia Status: Acute (5) Hypoglycemia associated with diabetes Status: Acute Plan Plan of Care I agree with treatment Continue with plan of care Comment Labs Laboratory Tests Test 09/13/16 13:50 09/13/16 15:56 09/13/16 20:43 09/14/16 07:36 Sodium Level 138mmol/L (136-145) Potassium Level 4.9mmol/L (3.5-5.1) Chloride Level 102mmol/L (98-107) Carbon Dioxide Level 29mmol/L (21-32) Anion Gap 7 (6-14) Blood Urea Nitrogen 40mg/dL (7-20) Creatinine 1.9mg/dL (0.6-1.0) Estimated GFR (Cockcroft-Gault) 25.0 Glucose Level 199mg/dL (70-99) Calcium Level 8.7mg/dL (8.5-10.1) Glucose (Fingerstick) 201mg/dL (70-99) 174mg/dL (70-99) 120mg/dL (70-99) Test 09/14/16 08:00 09/14/16 11:08 09/14/16 16:59 09/14/16 21:02 Sodium Level 140mmol/L (136-145) Potassium Level 4.5mmol/L (3.5-5.1) Chloride Level 103mmol/L (98-107) Carbon Dioxide Level 26mmol/L (21-32) Anion Gap 11 (6-14) Blood Urea Nitrogen 38mg/dL (7-20) Creatinine 1.8mg/dL (0.6-1.0) Estimated GFR (Cockcroft-Gault) 26.6 BUN/Creatinine Ratio 21 (6-20) Glucose Level 131mg/dL (70-99) Calcium Level 8.6mg/dL (8.5-10.1) Total Bilirubin 0.9mg/dL (0.2-1.0) Aspartate Amino Transf (AST/SGOT) 30U/L (15-37) Alanine Aminotransferase (ALT/SGPT) 19U/L (14-59) Alkaline Phosphatase 97U/L (46-116) Total Protein 6.4g/dL (6.4-8.2) Albumin 2.9g/dL (3.4-5.0) Albumin/Globulin Ratio 0.8 (1.0-1.7) Random Vancomycin Level 9.4mcg/mL Glucose (Fingerstick) 162mg/dL (70-99) 192mg/dL (70-99) 204mg/dL (70-99) Test 09/15/16 04:14 09/15/16 08:20 09/15/16 11:34 Sodium Level 140mmol/L (136-145) Potassium Level 4.7mmol/L (3.5-5.1) Chloride Level 103mmol/L (98-107) Carbon Dioxide Level 30mmol/L (21-32) Anion Gap 7 (6-14) Blood Urea Nitrogen 43mg/dL (7-20) Creatinine 1.8mg/dL (0.6-1.0) Estimated GFR (Cockcroft-Gault) 26.6 Glucose Level 175mg/dL (70-99) Calcium Level 8.5mg/dL (8.5-10.1) Glucose (Fingerstick) 166mg/dL (70-99) 212mg/dL (70-99) Laboratory Tests Test 09/14/16 16:59 09/14/16 21:02 09/15/16 04:14 09/15/16 08:20 Glucose (Fingerstick) 192mg/dL (70-99) 204mg/dL (70-99) 166mg/dL (70-99) Sodium Level 140mmol/L (136-145) Potassium Level 4.7mmol/L (3.5-5.1) Chloride Level 103mmol/L (98-107) Carbon Dioxide Level 30mmol/L (21-32) Anion Gap 7 (6-14) Blood Urea Nitrogen 43mg/dL (7-20) Creatinine 1.8mg/dL (0.6-1.0) Estimated GFR (Cockcroft-Gault) 26.6 Glucose Level 175mg/dL (70-99) Calcium Level 8.5mg/dL (8.5-10.1) Test 09/15/16 11:34 Glucose (Fingerstick) 212mg/dL (70-99) Microbiology 09/12/16 Blood Culture - Preliminary, Resulted NO GROWTH AFTER 3 DAYS 09/12/16 Urine Culture - Final, Complete 09/12/16 Urine Culture Result 1 (MAMI) - Final, Complete Medications Current Medications Albuterol/ Ipratropium 3 ml 3 ml 1X ONCE NEB Last administered on 09/11/16 22 :40; Start 09/11/16 at 22:45; Stop 09/11/16 at 22:46; Status DC Levofloxacin/ Dextrose (LEVAQUIN 750mg PREMIX) 150 ml @ 100 mls/hr 1X ONCE IV Last administered on 09/12/16 04:27; Start 09/12/16 at 01:00; Stop 09/12/16 at 02:29; Status DC Albuterol/ Ipratropium (Duoneb) 3 ml PRN Q4HRS PRN NEB SOA; Start 09/12/16 at 00:45; Stop 09/12/16 at 06:00; Status DC Albuterol/ Ipratropium (Duoneb) 3 ml 1X ONCE NEB Last administered on 01:49; Start 09/12/16 at 01:30; Stop 09/12/16 at 01:31; Status DC Acetaminophen/ Hydrocodone Bitart (Lortab 5/325) 1 tab 1X ONCE PO ; Start 09/12 at 01:30; Stop 09/12/16 at 01:31; Status DC Albuterol Sulfate (Ventolin Neb Soln) 2.5 mg PRN Q4HRS PRN NEB SHORTNESS OF BREATH; Start 09/12/16 at 02:00; Stop 09/13/16 at 01:59; Status DC Acetaminophen/ Hydrocodone Bitart (Lortab 7.5/325) 1 tab PRN Q6HRS PRN PO MODERATE PAIN Last administered on 09/15/16 05:52; Start 09/12/16 at 03:45 Insulin Aspart (Novolog) 0-5 UNITS TIDWMEALS SQ Last administered on 09/15/16 12:29; Start 09/12/16 at 08:00 Dextrose 12.5 gm PRN Q15MIN PRN IV SEE COMMENTS; Start 09/12/16 at 03:45 Vancomycin HCl (Vanco Per Pharmacy) 1 each PRN DAILY PRN MC SEE COMMENTS Last administered on 09/15/16 12:50; Start 09/12/16 at 07:45 Albuterol/ Ipratropium (Duoneb) 3 ml RTQID NEB Last administered on 09/15/16 11:37; Start 09/12/16 at 08:00 Aspirin (Children'S Aspirin) 81 mg DAILY PO Last administered on 09/15/16 10: 05; Start 09/12/16 at 09:00 Bumetanide (Bumex) 1 mg NOON PO Last administered on 09/13/16 12:42; Start at 12:00; Stop 09/14/16 at 11:24; Status DC Diphenhydramine HCl (Benadryl) 25 mg HS PO Last administered on 09/14/16 21:11 ; Start 09/12/16 at 21:00 Acetaminophen/ Hydrocodone Bitart (Lortab 7.5/325) 1 tab PRN QHS PRN PO PAIN Last administered on 09/13/16 20:50; Start 09/12/16 at 07:45 Isosorbide Mononitrate (Imdur) 30 mg DAILY16 PO Last administered on 09/14/16 16:18; Start 09/12/16 at 16:00 Lisinopril (Prinivil) 10 mg DAILY PO ; Start 09/12/16 at 09:00; Stop 09/13/16 at 07:24; Status DC Sertraline HCl (Zoloft) 25 mg DAILY PO Last administered on 09/15/16 10:06; Start 09/12/16 at 09:00 Cyclobenzaprine HCl (Flexeril) 10 mg PRN TID PRN PO MUSCLE SPASMS; Start at 08:00 Multivitamins/ Calcium (Thera M Plus) 1 tab DAILY PO Last administered on 10:06; Start 09/12/16 at 09:00 Fish Oil (Fish Oil) 1,000 mg DAILY PO Last administered on 09/15/16 10:05; Start 09/12/16 at 09:00 Pantoprazole Sodium (Protonix) 40 mg DAILYAC PO Last administered on 09/15/16 05:52; Start 09/12/16 at 08:00 Atorvastatin Calcium 10 mg 10 mg QHS PO Last administered on 09/14/16 21:12; Start 09/12/16 at 21:00 Vancomycin HCl/ Sodium Chloride (Iv Sodium Chloride 0.9% 500ml Bag) 500 ml @ 250 mls/hr 1X ONCE IV Last administered on 09/12/16 08:19; Start 09/12/16 at 08:30; Stop 09/12/16 at 10:29; Status DC Furosemide (Lasix) 40 mg 1X ONCE IVP Last administered on 09/12/16 11:26; Start 09/12/16 at 11:30; Stop 09/12/16 at 11:31; Status DC Vancomycin HCl 1 each 1X ONCE MC ; Start 09/14/16 at 08:00; Stop 09/14/16 at 08 :01; Status DC Sodium Polystyrene Sulfonate (Kayexalate) 15 gm 1X ONCE PO Last administered on 09/13/16 07:59; Start 09/13/16 at 07:30; Stop 09/13/16 at 07:31; Status DC Furosemide (Lasix) 40 mg 1X ONCE IVP Last administered on 09/13/16 07:59; Start 09/13/16 at 07:30; Stop 09/13/16 at 07:31; Status DC Nystatin 1 yusuf 1 yusuf BID TP Last administered on 09/15/16 09:35; Start at 09:00 Vancomycin HCl/ Sodium Chloride (Iv Sodium Chloride 0.9% 250ml) 250 ml @ 167 mls/hr Q48H IV Last administered on 09/14/16 09:51; Start 09/14/16 at 09:30 Bumetanide (Bumex) 2 mg NOON PO Last administered on 09/15/16 12:19; Start at 12:00 Prednisone (Prednisone) 60 mg 1X ONCE PO Last administered on 09/15/16 10:06 ; Start 09/15/16 at 09:30; Stop 09/15/16 at 09:31; Status DC Bumetanide (Bumex) 2 mg 1X STAT IV Last administered on 09/15/16 09:37; Start 09/15/16 at 09:03; Stop 09/15/16 at 09:10; Status DC Furosemide (Lasix) 40 mg 1X ONCE IVP Last administered on 09/15/16 12:17; Start 09/15/16 at 12:00; Stop 09/15/16 at 12:01; Status DC Active Scripts Active Sertraline Hcl 25 Mg Tablet 25 Mg PO DAILY Reported Bactrim 400-80 Mg Tablet (Sulfamethoxazole/Trimethoprim) 1 Each Tablet 1 Tab PO BID Bactrim 400-80 Mg Tablet (Sulfamethoxazole/Trimethoprim) 1 Each Tablet 1 Tab PO BID Bumetanide 1 Mg Tablet 1 Tab PO NOON Humulin 70-30 Vial (Hum Insulin Nph/Reg Insulin Hm) 100 Unit/1 Ml Vial 15 Unit SQ BIDAC Hydrocodone-Apap 7.5-325 (Hydrocodone Bit/Acetaminophen) 1 Each Tablet 1 Tab PO HS PRN Vitamin D2 (Ergocalciferol (Vitamin D2)) 50,000 Unit Capsule 50,000 Unit PO WEEKLY NEXT DOSE: PER USUAL TIME Prilosec (Omeprazole) 20 Mg Capsule.dr 1 Cap PO BID [place]-3 1,000 Mg Softgel ([place]-3 Fatty Acids/Fish Oil) 1 Each Capsule 1 Each PO DAILY Centrum Silver Tablet (Multivits-Min/Fa/Lycopene/Lut) 1 Each Tablet 1 Each PO DAILY Cyclobenzaprine Hcl 5 Mg Tablet 10 Mg PO TID PRN NEXT DOSE: WHEN NEEDED Benadryl (Diphenhydramine Hcl) 25 Mg Capsule 25 Mg PO HS Pravachol (Pravastatin Sodium) 40 Mg Tablet 40 Mg PO DAILY Potassium Chloride 10 Meq Capsule.er 10 Meq PO DAILY Lisinopril 10 Mg Tablet 10 Mg PO DAILY Imdur (Isosorbide Mononitrate) 30 Mg Tab.er.24h 30 Mg PO DAILY16 Children's Aspirin (Aspirin) 81 Mg Tab.chew 81 Mg PO DAILY Vitals/I & O Vital Sign - Last 24 Hours 09/14/16 09/14/16 09/14/16 09/14/16 15:00 15:00 15:26 16:18 Temp 97.8 97.8 Pulse 76 76 Resp 22 B/P 125/25 126/27 125/25 Pulse Ox 93 O2 Delivery Nasal Cannula Nasal Cannula O2 Flow Rate 3.0 3.0 09/14/16 09/14/16 09/14/16 09/14/16 16:19 17:19 19:00 19:50 Temp 97.9 97.9 Pulse 68 Resp 20 20 20 B/P 105/30 Pulse Ox 95 93 95 O2 Delivery Nasal Cannula Nasal Cannula Nasal Cannula O2 Flow Rate 3.0 3.0 3.0 09/14/16 09/14/16 09/15/16 09/15/16 20:00 23:00 03:00 05:52 Temp 97.7 97.9 97.7 97.9 Pulse 71 69 Resp 20 20 B/P 130/46 151/50 Pulse Ox 93 97 O2 Delivery Nasal Cannula Nasal Cannula Nasal Cannula Room Air O2 Flow Rate 3.0 3.0 3.0 09/15/16 09/15/16 09/15/16 09/15/16 06:52 07:00 08:07 11:40 Temp 97.6 97.6 Pulse 140 Resp 18 B/P 120/42 Pulse Ox 97 90 97 O2 Delivery Nasal Cannula Nasal Cannula Nasal Cannula Nasal Cannula O2 Flow Rate 3.0 3.0 3.0 3.0 09/15/16 11:51 Temp 97.8 97.8 Pulse 73 Resp 18 B/P 123/69 Pulse Ox 96 O2 Delivery Nasal Cannula O2 Flow Rate 3.0 Intake and Output 09/14/16 09/14/16 09/15/16 15:00 23:00 07:00 Intake Total 500 ml 850 ml 60 ml Output Total 525 ml 350 ml Balance 500 ml 325 ml -290 ml CELSA JAVIER MD Sep 15, 2016 13:51
[2016-09-15 15:30] VITALS: BP 124/71
[2016-09-15] MEDS ORDERED: GUAIFENESIN DM 200MG/20MG 10 ML SYRUP. PO PRN (15:30)
[2016-09-15] MEDS: ISOSORBIDE MONONITRATE ER 30 MG TAB.ER.24H PO SCH (16:15)
[2016-09-15] MEDS: GUAIFENESIN DM 200MG/20MG 10 ML SYRUP. PO PRN (17:03)
[2016-09-15 19:00] VITALS: BP 144/57
[2016-09-15] MEDS: DIPHENHYDRAMINE HCL 25 MG CAPSULE PO SCH (22:25)
[2016-09-15] MEDS: ATORVASTATIN CALCIUM 10 MG TABLET. PO SCH (22:25)
[2016-09-15 23:00] VITALS: BP 162/54
[2016-09-16] MEDS: INSULIN ASPART 300 UNITS/3 ML INSULN.PEN SQ SCH ×5 (00:46→21:57)
[2016-09-16 03:00] VITALS: BP 106/52
[2016-09-16 06:18] LABS: HEMATOCRIT 34.7 % (36.0-47.0); HEMOGLOBIN 11.1 g/dL (12.0-15.5); RED BLOOD COUNT 3.6 x10^6/uL (3.50-5.40); RED CELL DISTRIBUTION WIDTH 14.3 % (11.5-14.5); WHITE BLOOD COUNT 2.8 x10^3/uL (4.0-11.0)
[2016-09-16 06:48] LABS: CALCIUM 8.6 mg/dL (8.5-10.1); CREATININE 1.7 mg/dL (0.6-1.0); GFR 28.4; POTASSIUM 4.6 mmol/L (3.5-5.1)
[2016-09-16] MEDS: IPRATRPIUM/ALBUTEROL 0.5/2.5MG 3 ML NEBU. NEB SCH ×4 (07:51→20:46)
[2016-09-16 08:05] VITALS: BP 165/58
[2016-09-16] MEDS: PANTOPRAZOLE 40 MG TABLET. PO SCH (08:45)
[2016-09-16] MEDS: NYSTATIN TOPICAL POWDER 15GM BOTTLE. TP SCH ×2 (08:46→20:30)
[2016-09-16] MEDS: ASPIRIN 81 MG TAB.CHEW PO SCH (08:46)
[2016-09-16] MEDS: MULTIVITAMIN with MINERAL TABLET. PO SCH (08:46)
[2016-09-16] MEDS: SERTRALINE 25 MG TABLET. PO SCH (08:46)
[2016-09-16] MEDS: OMEGA-3 FATTY ACIDS/FISH OIL 1,000 MG CAPSULE. PO SCH (08:46)
[2016-09-16] MEDS: VANCOMYCIN 1.25 GM in IV NORMAL SALINE 250ML 250 ML IV SCH (10:06)
--- NOTE | 2016-09-16 10:49 | PDOC ---
PULMONARY PROGRESS NOTES Subjective no soa Vitals Vital Signs Date Time Temp Pulse Resp B/P Pulse Ox O2 Delivery O2 Flow Rate FiO2 09/16/16 08:05 97.5 67 18 165/58 93 Nasal Cannula 2.0 97.5 General: Alert, No acute distress Lungs: Other (faint wheezing) Cardiovascular: S1, S2 Abdomen: Soft, Non-tender Neuro Exam: Alert Extremities: No Edema, Other Skin: Warm Labs Laboratory Tests Test 09/14/16 11:08 09/14/16 16:59 09/14/16 21:02 09/15/16 04:14 Glucose (Fingerstick) 162mg/dL (70-99) 192mg/dL (70-99) 204mg/dL (70-99) Sodium Level 140mmol/L (136-145) Potassium Level 4.7mmol/L (3.5-5.1) Chloride Level 103mmol/L (98-107) Carbon Dioxide Level 30mmol/L (21-32) Anion Gap 7 (6-14) Blood Urea Nitrogen 43mg/dL (7-20) Creatinine 1.8mg/dL (0.6-1.0) Estimated GFR (Cockcroft-Gault) 26.6 Glucose Level 175mg/dL (70-99) Calcium Level 8.5mg/dL (8.5-10.1) Test 09/15/16 08:20 09/15/16 11:34 09/15/16 16:47 09/15/16 21:57 Glucose (Fingerstick) 166mg/dL (70-99) 212mg/dL (70-99) 239mg/dL (70-99) 290mg/dL (70-99) Test 09/16/16 00:34 09/16/16 02:30 Glucose (Fingerstick) 381mg/dL (70-99) White Blood Count 2.8x10^3/uL (4.0-11.0) Red Blood Count 3.60x10^6/uL (3.50-5.40) Hemoglobin 11.1g/dL (12.0-15.5) Hematocrit 34.7% (36.0-47.0) Mean Corpuscular Volume 96fL (79-100) Mean Corpuscular Hemoglobin 31pg (25-35) Mean Corpuscular Hemoglobin Concent 32g/dL (31-37) Red Cell Distribution Width 14.3% (11.5-14.5) Platelet Count 114x10^3/uL (140-400) Sodium Level 140mmol/L (136-145) Potassium Level 4.6mmol/L (3.5-5.1) Chloride Level 101mmol/L (98-107) Carbon Dioxide Level 30mmol/L (21-32) Anion Gap 9 (6-14) Blood Urea Nitrogen 47mg/dL (7-20) Creatinine 1.7mg/dL (0.6-1.0) Estimated GFR (Cockcroft-Gault) 28.4 Glucose Level 357mg/dL (70-99) Calcium Level 8.6mg/dL (8.5-10.1) Laboratory Tests Test 09/15/16 11:34 09/15/16 16:47 09/15/16 21:57 09/16/16 00:34 Glucose (Fingerstick) 212mg/dL (70-99) 239mg/dL (70-99) 290mg/dL (70-99) 381mg/dL (70-99) Test 09/16/16 02:30 White Blood Count 2.8x10^3/uL (4.0-11.0) Red Blood Count 3.60x10^6/uL (3.50-5.40) Hemoglobin 11.1g/dL (12.0-15.5) Hematocrit 34.7% (36.0-47.0) Mean Corpuscular Volume 96fL (79-100) Mean Corpuscular Hemoglobin 31pg (25-35) Mean Corpuscular Hemoglobin Concent 32g/dL (31-37) Red Cell Distribution Width 14.3% (11.5-14.5) Platelet Count 114x10^3/uL (140-400) Sodium Level 140mmol/L (136-145) Potassium Level 4.6mmol/L (3.5-5.1) Chloride Level 101mmol/L (98-107) Carbon Dioxide Level 30mmol/L (21-32) Anion Gap 9 (6-14) Blood Urea Nitrogen 47mg/dL (7-20) Creatinine 1.7mg/dL (0.6-1.0) Estimated GFR (Cockcroft-Gault) 28.4 Glucose Level 357mg/dL (70-99) Calcium Level 8.6mg/dL (8.5-10.1) Medications Active Scripts Medications Dose Route/Sig Days Date Category Dose Instructions Bactrim 400-80 Mg Tablet (Sulfamethoxazole/Trimethoprim) 1 Each Tablet 1 Tab PO BID 09/12/16 Reported Bactrim 400-80 Mg Tablet (Sulfamethoxazole/Trimethoprim) 1 Each Tablet 1 Tab PO BID 09/12/16 Reported Bumetanide 1 Mg Tablet 1 Tab PO NOON 02/18/16 Reported Humulin 70-30 Vial (Hum Insulin Nph/Reg Insulin Hm) 100 Unit/1 Ml Vial 15 Unit SQ BIDAC 02/18/16 Reported Sertraline Hcl 25 Mg Tablet 25 Mg PO DAILY 12/21/15 Rx Hydrocodone-Apap 7.5-325 (Hydrocodone Bit/Acetaminophen) 1 Each Tablet 1 Tab PO HS PRN 08/10/15 Reported Vitamin D2 (Ergocalciferol (Vitamin D2)) 50,000 Unit Capsule 50,000 Unit PO WEEKLY 08/10/15 Reported NEXT DOSE: PER USUAL TIME Prilosec (Omeprazole) 20 Mg Capsule.dr 1 Cap PO BID 08/10/15 Reported [place]-3 1,000 Mg Softgel ([place]-3 Fatty Acids/Fish Oil) 1 Each Capsule 1 Each PO DAILY 08/10/15 Reported Centrum Silver Tablet (Multivits-Min/Fa/Lycopene/Lut) 1 Each Tablet 1 Each PO DAILY 08/10/15 Reported Cyclobenzaprine Hcl 5 Mg Tablet 10 Mg PO TID PRN 04/15/14 Reported NEXT DOSE: WHEN NEEDED Benadryl (Diphenhydramine Hcl) 25 Mg Capsule 25 Mg PO HS 01/25/14 Reported Pravachol (Pravastatin Sodium) 40 Mg Tablet 40 Mg PO DAILY 01/25/14 Reported Potassium Chloride 10 Meq Capsule.er 10 Meq PO DAILY 01/24/14 Reported Lisinopril 10 Mg Tablet 10 Mg PO DAILY 01/24/14 Reported Imdur (Isosorbide Mononitrate) 30 Mg Tab.er.24h 30 Mg PO DAILY16 01/24/14 Reported Children's Aspirin (Aspirin) 81 Mg Tab.chew 81 Mg PO DAILY 01/24/14 Reported Comments CXR 09/14 Worsening CHF Impression . 1. Dyspnea with acute hypoxic respiratory failure with bilateral interstitial infiltrates. this is secondary to [id number] diastolic heart failure/ MR. noncontrast CT chest with mild interstitial infiltrates / basal effusions related to CHF/ CXR with worsening CHF 09/14 2. History of stage IV lung cancer with metastasis to the abdominal wall. Status post radiation. 3. History of tobacco use, suspect underlying chronic obstructive pulmonary disease. 4. Renal insufficiency. 5. Increased troponin levels. 6. 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 1. Would continue with present oxygen. repeat cxr 09/14 with worsening CHF ( wheezing) 2. Diuresis. extra lasix 09/[address] chest reviewed. increase mass size RUL. follow oncology recommendations, no further chemo 4. echocardiogram reviewed. severe mitral calcification. cardiology to address severity of mitral valve / not a candidate for surgery. ? KAR 5. Bronchodilators. 6. Treatment of cellulitis per primary care. 7. Oncology to f/u on lung cancer. SETH MULLINS MD Sep 16, 2016 10:49
--- NOTE | 2016-09-16 10:54 | PDOC ---
Renal-Progress Notes Subjective Notes Notes NONE History of Present Illness Hx of present illness NO CHANGE Vitals Vitals Vital Signs Date Time Temp Pulse Resp B/P Pulse Ox O2 Delivery O2 Flow Rate FiO2 09/16/16 08:05 97.5 67 18 165/58 93 Nasal Cannula 2.0 97.5 Weight Weight [ ] I.O. Intake and Output Intake and Output 09/16/16 07:00 Intake Total 1000 ml Output Total 1600 ml Balance -600 ml Intake Oral 1000 ml Output Urine Total 1600 ml Labs Labs Laboratory Tests Test 09/15/16 11:34 09/15/16 16:47 09/15/16 21:57 09/16/16 00:34 Glucose (Fingerstick) 212mg/dL (70-99) 239mg/dL (70-99) 290mg/dL (70-99) 381mg/dL (70-99) Test 09/16/16 02:30 White Blood Count 2.8x10^3/uL (4.0-11.0) Red Blood Count 3.60x10^6/uL (3.50-5.40) Hemoglobin 11.1g/dL (12.0-15.5) Hematocrit 34.7% (36.0-47.0) Mean Corpuscular Volume 96fL (79-100) Mean Corpuscular Hemoglobin 31pg (25-35) Mean Corpuscular Hemoglobin Concent 32g/dL (31-37) Red Cell Distribution Width 14.3% (11.5-14.5) Platelet Count 114x10^3/uL (140-400) Sodium Level 140mmol/L (136-145) Potassium Level 4.6mmol/L (3.5-5.1) Chloride Level 101mmol/L (98-107) Carbon Dioxide Level 30mmol/L (21-32) Anion Gap 9 (6-14) Blood Urea Nitrogen 47mg/dL (7-20) Creatinine 1.7mg/dL (0.6-1.0) Estimated GFR (Cockcroft-Gault) 28.4 Glucose Level 357mg/dL (70-99) Calcium Level 8.6mg/dL (8.5-10.1) Micro Micro Microbiology 09/12/16 Blood Culture - Preliminary, Resulted NO GROWTH AFTER 4 DAYS 09/12/16 Urine Culture - Final, Complete 09/12/16 Urine Culture Result 1 (MAMI) - Final, Complete Review of Systems Constitutional: yes: alert, oriented Ears/Nose/Throat: Yes: no symptom reported Eyes: Yes: no symptom reported Pulmonary: Yes dyspnea Cardiovascular: Yes no symptom reported Gastrointestional: Yes: no symptom reported Genitourinary: Yes: no symptom reported Musculoskeletal: Yes: muscle stiffness Physical Exam General Appearance: no apparent distress Skin: warm Respiratory: decreased breath sounds Heart: S1S2, RRR Abdomen: soft, bowel sounds present Genitourinary: bladder flat Neurology: alert, oriented Musculoskeletal: Weakness, Swelling, Stiffness, Other (back pain) Assessment Assessment IMP GUME - BETTER WITH CR OF 1.7 CKD STAGE 3 WITH CR OF 1.3-1.5 HYPERKALEMIA-RESOLVED LLE CELLULITIS STAGE 4 LUNG CA PLEURAL EFFUSIONS PULMONARY HTN MILD HYPERVOLEMIA PLAN SUPPORTIVE CARE CONT BUMEX PO WILL FOLLOW CHAMP PANIAGUA MD Sep 16, 2016 10:54
[2016-09-16 10:55] VITALS: BP 132/50
[2016-09-16] MEDS: BUMETANIDE 1 MG TABLET PO SCH (12:25)
[2016-09-16] MEDS: HYDROCODONE/APAP 7.5/325MG TABLET. PO PRN (12:56)
[2016-09-16] MEDS ORDERED: HYDROCODONE/APAP 7.5/325MG TABLET. PO PRN (13:45)
--- NOTE | 2016-09-16 13:52 | PDOC ---
PROGRESS NOTES Subjective Subjective Patient c/o pain in her left foot, seems to be worsening. Objective Objective Vital Signs Date Time Temp Pulse Resp B/P Pulse Ox O2 Delivery O2 Flow Rate FiO2 09/16/16 12:56 Nasal Cannula 3.0 09/16/16 11:42 93 09/16/16 08:05 97.5 67 18 165/58 97.5 Intake and Output 09/16/16 07:00 Intake Total 1000 ml Output Total 1600 ml Balance -600 ml Intake Oral 1000 ml Output Urine Total 1600 ml Physical Exam Abdomen: Normal bowel sounds, Soft, No tenderness Heart: Regular rate Extremities: Other (R LE with scant erythema and edema. L LE with dressing and wrap in place. Moderate TTP over dorsal aspect of foot.) General: Alert, Oriented X3, No acute distress Lungs: Other (BS decreased throughout, otherwise CTA anteriorly) Assessment Assessment Problems Medical Problems: (1) Acute and chronic respiratory failure Status: Acute (2) Acute on chronic renal failure Status: Acute (3) Congestive heart failure Status: Acute (4) Hyperkalemia Status: Acute (5) Hypoglycemia associated with diabetes Status: Acute Plan Plan of Care 1. Acute on chronic CHF with pulmonary HTN and valvular heart disease - not a surgical candidate at this time. CXR and symptoms seem somewhat improved after extra diuretic yesterday. Continue Bumex daily. 2. acute on chronic respiratory failure - appears stable at present. 3. cellulitis left LE with pain in left foot - continue Vancomycin and wound care. Xrays ordered of foot due to increased pain. [place] increased also. 4. DM2 - blood sugars elevated past 24 hours, will resume 70/30 BID at a lower dose than she usually takes at home as po appetite not good per family. Continue SS. 5. renal failure with CKD - improved, now stable. Renal following. 6. metastatic lung cancer - no tx presently planned. Patient apparently asymptomatic. Comment Review of Relevant I have reviewed the following items edna (where applicable) has been applied. Labs Laboratory Tests Test 09/14/16 16:59 09/14/16 21:02 09/15/16 04:14 09/15/16 08:20 Glucose (Fingerstick) 192mg/dL (70-99) 204mg/dL (70-99) 166mg/dL (70-99) Sodium Level 140mmol/L (136-145) Potassium Level 4.7mmol/L (3.5-5.1) Chloride Level 103mmol/L (98-107) Carbon Dioxide Level 30mmol/L (21-32) Anion Gap 7 (6-14) Blood Urea Nitrogen 43mg/dL (7-20) Creatinine 1.8mg/dL (0.6-1.0) Estimated GFR (Cockcroft-Gault) 26.6 Glucose Level 175mg/dL (70-99) Calcium Level 8.5mg/dL (8.5-10.1) Test 09/15/16 11:34 09/15/16 16:47 09/15/16 21:57 09/16/16 00:34 Glucose (Fingerstick) 212mg/dL (70-99) 239mg/dL (70-99) 290mg/dL (70-99) 381mg/dL (70-99) Test 09/16/16 02:30 09/16/16 11:01 White Blood Count 2.8x10^3/uL (4.0-11.0) Red Blood Count 3.60x10^6/uL (3.50-5.40) Hemoglobin 11.1g/dL (12.0-15.5) Hematocrit 34.7% (36.0-47.0) Mean Corpuscular Volume 96fL (79-100) Mean Corpuscular Hemoglobin 31pg (25-35) Mean Corpuscular Hemoglobin Concent 32g/dL (31-37) Red Cell Distribution Width 14.3% (11.5-14.5) Platelet Count 114x10^3/uL (140-400) Sodium Level 140mmol/L (136-145) Potassium Level 4.6mmol/L (3.5-5.1) Chloride Level 101mmol/L (98-107) Carbon Dioxide Level 30mmol/L (21-32) Anion Gap 9 (6-14) Blood Urea Nitrogen 47mg/dL (7-20) Creatinine 1.7mg/dL (0.6-1.0) Estimated GFR (Cockcroft-Gault) 28.4 Glucose Level 357mg/dL (70-99) Calcium Level 8.6mg/dL (8.5-10.1) Glucose (Fingerstick) 295mg/dL (70-99) Laboratory Tests Test 09/15/16 16:47 09/15/16 21:57 09/16/16 00:34 09/16/16 02:30 Glucose (Fingerstick) 239mg/dL (70-99) 290mg/dL (70-99) 381mg/dL (70-99) White Blood Count 2.8x10^3/uL (4.0-11.0) Red Blood Count 3.60x10^6/uL (3.50-5.40) Hemoglobin 11.1g/dL (12.0-15.5) Hematocrit 34.7% (36.0-47.0) Mean Corpuscular Volume 96fL (79-100) Mean Corpuscular Hemoglobin 31pg (25-35) Mean Corpuscular Hemoglobin Concent 32g/dL (31-37) Red Cell Distribution Width 14.3% (11.5-14.5) Platelet Count 114x10^3/uL (140-400) Sodium Level 140mmol/L (136-145) Potassium Level 4.6mmol/L (3.5-5.1) Chloride Level 101mmol/L (98-107) Carbon Dioxide Level 30mmol/L (21-32) Anion Gap 9 (6-14) Blood Urea Nitrogen 47mg/dL (7-20) Creatinine 1.7mg/dL (0.6-1.0) Estimated GFR (Cockcroft-Gault) 28.4 Glucose Level 357mg/dL (70-99) Calcium Level 8.6mg/dL (8.5-10.1) Test 09/16/16 11:01 Glucose (Fingerstick) 295mg/dL (70-99) Microbiology 09/12/16 Blood Culture - Preliminary, Resulted NO GROWTH AFTER 4 DAYS 09/12/16 Urine Culture - Final, Complete 09/12/16 Urine Culture Result 1 (MAMI) - Final, Complete Medications Current Medications Albuterol/ Ipratropium 3 ml 3 ml 1X ONCE NEB Last administered on 09/11/16 22 :40; Start 09/11/16 at 22:45; Stop 09/11/16 at 22:46; Status DC Levofloxacin/ Dextrose (LEVAQUIN 750mg PREMIX) 150 ml @ 100 mls/hr 1X ONCE IV Last administered on 09/12/16 04:27; Start 09/12/16 at 01:00; Stop 09/12/16 at 02:29; Status DC Albuterol/ Ipratropium (Duoneb) 3 ml PRN Q4HRS PRN NEB SOA; Start 09/12/16 at 00:45; Stop 09/12/16 at 06:00; Status DC Albuterol/ Ipratropium (Duoneb) 3 ml 1X ONCE NEB Last administered on 01:49; Start 09/12/16 at 01:30; Stop 09/12/16 at 01:31; Status DC Acetaminophen/ Hydrocodone Bitart (Lortab 5/325) 1 tab 1X ONCE PO ; Start 09/12 at 01:30; Stop 09/12/16 at 01:31; Status DC Albuterol Sulfate (Ventolin Neb Soln) 2.5 mg PRN Q4HRS PRN NEB SHORTNESS OF BREATH; Start 09/12/16 at 02:00; Stop 09/13/16 at 01:59; Status DC Acetaminophen/ Hydrocodone Bitart (Lortab 7.5/325) 1 tab PRN Q6HRS PRN PO MODERATE PAIN Last administered on 09/16/16 12:56; Start 09/12/16 at 03:45 Insulin Aspart (Novolog) 0-5 UNITS TIDWMEALS SQ Last administered on 09/16/16 08:51; Start 09/12/16 at 08:00; Stop 09/16/16 at 12:17; Status DC Dextrose 12.5 gm PRN Q15MIN PRN IV SEE COMMENTS; Start 09/12/16 at 03:45 Vancomycin HCl (Vanco Per Pharmacy) 1 each PRN DAILY PRN MC SEE COMMENTS Last administered on 09/15/16 12:50; Start 09/12/16 at 07:45 Albuterol/ Ipratropium (Duoneb) 3 ml RTQID NEB Last administered on 09/16/16 11:41; Start 09/12/16 at 08:00 Aspirin (Children'S Aspirin) 81 mg DAILY PO Last administered on 09/16/16 08: 46; Start 09/12/16 at 09:00 Bumetanide (Bumex) 1 mg NOON PO Last administered on 09/13/16 12:42; Start at 12:00; Stop 09/14/16 at 11:24; Status DC Diphenhydramine HCl (Benadryl) 25 mg HS PO Last administered on 09/15/16 22:25 ; Start 09/12/16 at 21:00 Acetaminophen/ Hydrocodone Bitart (Lortab 7.5/325) 1 tab PRN QHS PRN PO PAIN Last administered on 09/13/16 20:50; Start 09/12/16 at 07:45 Isosorbide Mononitrate (Imdur) 30 mg DAILY16 PO Last administered on 09/15/16 16:15; Start 09/12/16 at 16:00 Lisinopril (Prinivil) 10 mg DAILY PO ; Start 09/12/16 at 09:00; Stop 09/13/16 at 07:24; Status DC Sertraline HCl (Zoloft) 25 mg DAILY PO Last administered on 09/16/16 08:46; Start 09/12/16 at 09:00 Cyclobenzaprine HCl (Flexeril) 10 mg PRN TID PRN PO MUSCLE SPASMS; Start at 08:00 Multivitamins/ Calcium (Thera M Plus) 1 tab DAILY PO Last administered on 08:46; Start 09/12/16 at 09:00 Fish Oil (Fish Oil) 1,000 mg DAILY PO Last administered on 09/16/16 08:46; Start 09/12/16 at 09:00 Pantoprazole Sodium (Protonix) 40 mg DAILYAC PO Last administered on 09/16/16 08:45; Start 09/12/16 at 08:00 Atorvastatin Calcium 10 mg 10 mg QHS PO Last administered on 09/15/16 22:25; Start 09/12/16 at 21:00 Vancomycin HCl/ Sodium Chloride (Iv Sodium Chloride 0.9% 500ml Bag) 500 ml @ 250 mls/hr 1X ONCE IV Last administered on 09/12/16 08:19; Start 09/12/16 at 08:30; Stop 09/12/16 at 10:29; Status DC Furosemide (Lasix) 40 mg 1X ONCE IVP Last administered on 1/24/17at 11:26; Start 09/12/16 at 11:30; Stop 09/12/16 at 11:31; Status DC Vancomycin HCl 1 each 1X ONCE MC ; Start 09/14/16 at 08:00; Stop 09/14/16 at 08 :01; Status DC Sodium Polystyrene Sulfonate (Kayexalate) 15 gm 1X ONCE PO Last administered on 09/13/16 07:59; Start 09/13/16 at 07:30; Stop 09/13/16 at 07:31; Status DC Furosemide (Lasix) 40 mg 1X ONCE IVP Last administered on 09/13/16 07:59; Start 09/13/16 at 07:30; Stop 09/13/16 at 07:31; Status DC Nystatin 1 yusuf 1 yusuf BID TP Last administered on 09/16/16 08:46; Start at 09:00 Vancomycin HCl/ Sodium Chloride (Iv Sodium Chloride 0.9% 250ml) 250 ml @ 167 mls/hr Q48H IV Last administered on 09/16/16 10:06; Start 09/14/16 at 09:30 Bumetanide (Bumex) 2 mg NOON PO Last administered on 09/16/16 12:25; Start at 12:00 Prednisone (Prednisone) 60 mg 1X ONCE PO Last administered on 09/15/16 10:06 ; Start 09/15/16 at 09:30; Stop 09/15/16 at 09:31; Status DC Bumetanide (Bumex) 2 mg 1X STAT IV Last administered on 09/15/16 09:37; Start 09/15/16 at 09:03; Stop 09/15/16 at 09:10; Status DC Furosemide (Lasix) 40 mg 1X ONCE IVP Last administered on 09/15/16 12:17; Start 09/15/16 at 12:00; Stop 09/15/16 at 12:01; Status DC Guaifenesin (Robitussin Dm) 10 ml PRN Q8HRS PRN PO COUGH; Start 09/15/16 at 15: 30; Stop 09/15/16 at 16:17; Status DC Guaifenesin (Robitussin Dm) 5 ml PRN Q8HRS PRN PO COUGH Last administered on 17:03; Start 09/15/16 at 16:30 Insulin Aspart (Novolog) 0-5 UNITS TIDWMEALHC SQ Last administered on 12:28; Start 09/16/16 at 12:30 Active Scripts Active Sertraline Hcl 25 Mg Tablet 25 Mg PO DAILY Reported Bactrim 400-80 Mg Tablet (Sulfamethoxazole/Trimethoprim) 1 Each Tablet 1 Tab PO BID Bactrim 400-80 Mg Tablet (Sulfamethoxazole/Trimethoprim) 1 Each Tablet 1 Tab PO BID Bumetanide 1 Mg Tablet 1 Tab PO NOON Humulin 70-30 Vial (Hum Insulin Nph/Reg Insulin Hm) 100 Unit/1 Ml Vial 15 Unit SQ BIDAC Hydrocodone-Apap 7.5-325 (Hydrocodone Bit/Acetaminophen) 1 Each Tablet 1 Tab PO HS PRN Vitamin D2 (Ergocalciferol (Vitamin D2)) 50,000 Unit Capsule 50,000 Unit PO WEEKLY NEXT DOSE: PER USUAL TIME Prilosec (Omeprazole) 20 Mg Capsule.dr 1 Cap PO BID [place]-3 1,000 Mg Softgel ([place]-3 Fatty Acids/Fish Oil) 1 Each Capsule 1 Each PO DAILY Centrum Silver Tablet (Multivits-Min/Fa/Lycopene/Lut) 1 Each Tablet 1 Each PO DAILY Cyclobenzaprine Hcl 5 Mg Tablet 10 Mg PO TID PRN NEXT DOSE: WHEN NEEDED Benadryl (Diphenhydramine Hcl) 25 Mg Capsule 25 Mg PO HS Pravachol (Pravastatin Sodium) 40 Mg Tablet 40 Mg PO DAILY Potassium Chloride 10 Meq Capsule.er 10 Meq PO DAILY Lisinopril 10 Mg Tablet 10 Mg PO DAILY Imdur (Isosorbide Mononitrate) 30 Mg Tab.er.24h 30 Mg PO DAILY16 Children's Aspirin (Aspirin) 81 Mg Tab.chew 81 Mg PO DAILY Vitals/I & O Vital Sign - Last 24 Hours 09/15/16 09/15/16 09/15/16 09/15/16 15:30 16:15 17:13 19:00 Temp 98.1 99.1 98.1 99.1 Pulse 74 74 87 Resp 18 B/P 124/71 124/71 144/57 Pulse Ox 96 94 O2 Delivery Nasal Cannula Nasal Cannula Nasal Cannula O2 Flow Rate 3.0 3.0 09/15/16 09/15/16 09/15/1609/15/17 19:31 20:00 22:25 23:00 Temp 98.5 98.5 Pulse 72 Resp 18 B/P 162/54 Pulse Ox 94 94 90 O2 Delivery Nasal Cannula Nasal Cannula Nasal Cannula Nasal Cannula O2 Flow Rate 3.0 3.0 3.0 09/15/16 09/16/16 09/16/16 09/16/16 23:25 03:00 07:53 08:00 Temp 98.9 98.9 Pulse 71 Resp 18 B/P 106/52 Pulse Ox 90 95 94 O2 Delivery Nasal Cannula Nasal Cannula Nasal Cannula Nasal Cannula O2 Flow Rate 3.0 3.0 3.0 09/16/16 09/16/16 09/16/16 08:05 11:42 12:56 Temp 97.5 97.5 Pulse 67 Resp 18 B/P 165/58 Pulse Ox 93 93 O2 Delivery Nasal Cannula Nasal Cannula Nasal Cannula O2 Flow Rate 2.0 2.0 3.0 Intake and Output 09/15/16 09/15/16 09/16/16 15:00 23:00 07:00 Intake Total 240 ml 760 ml Output Total 300 ml 250 ml 1050 ml Balance -60 ml 510 ml -1050 ml JASON FERNANDO MD Sep 16, 2016 13:52
--- NOTE | 2016-09-16 14:22 | RAD ---
EXAM: Left foot, 3 views. HISTORY: Pain. COMPARISON: None. FINDINGS: Frontal, lateral and oblique views of the left foot are obtained. There is bone demineralization, limiting evaluation of bony detail. There are second through fourth hammer toe deformities. There is hallux valgus. There is a small plantar spur. There is soft tissue swelling. IMPRESSION: 1. Bone demineralization, limiting evaluation of bony detail. 2. Second through fourth hammer toe deformities and hallux valgus. 3. Soft tissue swelling.
[2016-09-16] MEDS: VANCOMYCIN PER PHARMACY MC PRN (14:45)
--- NOTE | 2016-09-16 15:38 | PDOC ---
PROGRESS NOTES Subjective Subjective No new cardiac complaints. Having pain to the left leg. Objective Objective Vital Signs Date Time Temp Pulse Resp B/P Pulse Ox O2 Delivery O2 Flow Rate FiO2 09/16/16 14:36 Nasal Cannula 3.0 09/16/16 11:42 93 09/16/16 10:55 97.5 66 18 132/50 97.5 Intake and Output 09/16/16 07:00 Intake Total 1000 ml Output Total 1600 ml Balance -600 ml Intake Oral 1000 ml Output Urine Total 1600 ml Physical Exam Physical Exam No significant changes in cardiac exam Assessment Assessment I agree that the patient needs to continue with diuresis and IV Lasix. I would only recommend medical treatment for this patient with regards to her valve. In the past we have discussed this with the patient as well as the family and they have agreed on a conservative medical treatment only. They are aware of the prognosis. Problems Medical Problems: (1) Acute and chronic respiratory failure Status: Acute (2) Acute on chronic renal failure Status: Acute (3) Congestive heart failure Status: Acute (4) Hyperkalemia Status: Acute (5) Hypoglycemia associated with diabetes Status: Acute Comment Review of Relevant I have reviewed the following items edna (where applicable) has been applied. Labs Laboratory Tests Test 09/14/16 16:59 09/14/16 21:02 09/15/16 04:14 09/15/16 08:20 Glucose (Fingerstick) 192mg/dL (70-99) 204mg/dL (70-99) 166mg/dL (70-99) Sodium Level 140mmol/L (136-145) Potassium Level 4.7mmol/L (3.5-5.1) Chloride Level 103mmol/L (98-107) Carbon Dioxide Level 30mmol/L (21-32) Anion Gap 7 (6-14) Blood Urea Nitrogen 43mg/dL (7-20) Creatinine 1.8mg/dL (0.6-1.0) Estimated GFR (Cockcroft-Gault) 26.6 Glucose Level 175mg/dL (70-99) Calcium Level 8.5mg/dL (8.5-10.1) Test 09/15/16 11:34 09/15/16 16:47 09/15/16 21:57 09/16/16 00:34 Glucose (Fingerstick) 212mg/dL (70-99) 239mg/dL (70-99) 290mg/dL (70-99) 381mg/dL (70-99) Test 09/16/16 02:30 09/16/16 11:01 White Blood Count 2.8x10^3/uL (4.0-11.0) Red Blood Count 3.60x10^6/uL (3.50-5.40) Hemoglobin 11.1g/dL (12.0-15.5) Hematocrit 34.7% (36.0-47.0) Mean Corpuscular Volume 96fL (79-100) Mean Corpuscular Hemoglobin 31pg (25-35) Mean Corpuscular Hemoglobin Concent 32g/dL (31-37) Red Cell Distribution Width 14.3% (11.5-14.5) Platelet Count 114x10^3/uL (140-400) Sodium Level 140mmol/L (136-145) Potassium Level 4.6mmol/L (3.5-5.1) Chloride Level 101mmol/L (98-107) Carbon Dioxide Level 30mmol/L (21-32) Anion Gap 9 (6-14) Blood Urea Nitrogen 47mg/dL (7-20) Creatinine 1.7mg/dL (0.6-1.0) Estimated GFR (Cockcroft-Gault) 28.4 Glucose Level 357mg/dL (70-99) Calcium Level 8.6mg/dL (8.5-10.1) Glucose (Fingerstick) 295mg/dL (70-99) Laboratory Tests Test 09/15/16 16:47 09/15/16 21:57 09/16/16 00:34 09/16/16 02:30 Glucose (Fingerstick) 239mg/dL (70-99) 290mg/dL (70-99) 381mg/dL (70-99) White Blood Count 2.8x10^3/uL (4.0-11.0) Red Blood Count 3.60x10^6/uL (3.50-5.40) Hemoglobin 11.1g/dL (12.0-15.5) Hematocrit 34.7% (36.0-47.0) Mean Corpuscular Volume 96fL (79-100) Mean Corpuscular Hemoglobin 31pg (25-35) Mean Corpuscular Hemoglobin Concent 32g/dL (31-37) Red Cell Distribution Width 14.3% (11.5-14.5) Platelet Count 114x10^3/uL (140-400) Sodium Level 140mmol/L (136-145) Potassium Level 4.6mmol/L (3.5-5.1) Chloride Level 101mmol/L (98-107) Carbon Dioxide Level 30mmol/L (21-32) Anion Gap 9 (6-14) Blood Urea Nitrogen 47mg/dL (7-20) Creatinine 1.7mg/dL (0.6-1.0) Estimated GFR (Cockcroft-Gault) 28.4 Glucose Level 357mg/dL (70-99) Calcium Level 8.6mg/dL (8.5-10.1) Test 09/16/16 11:01 Glucose (Fingerstick) 295mg/dL (70-99) Microbiology 09/12/16 Blood Culture - Preliminary, Resulted NO GROWTH AFTER 4 DAYS 09/12/16 Urine Culture - Final, Complete 09/12/16 Urine Culture Result 1 (MAMI) - Final, Complete Medications Current Medications Albuterol/ Ipratropium 3 ml 3 ml 1X ONCE NEB Last administered on 09/11/16 22 :40; Start 09/11/16 at 22:45; Stop 09/11/16 at 22:46; Status DC Levofloxacin/ Dextrose (LEVAQUIN 750mg PREMIX) 150 ml @ 100 mls/hr 1X ONCE IV Last administered on 09/12/16 04:27; Start 09/12/16 at 01:00; Stop 09/12/16 at 02:29; Status DC Albuterol/ Ipratropium (Duoneb) 3 ml PRN Q4HRS PRN NEB SOA; Start 09/12/16 at 00:45; Stop 09/12/16 at 06:00; Status DC Albuterol/ Ipratropium (Duoneb) 3 ml 1X ONCE NEB Last administered on 01:49; Start 09/12/16 at 01:30; Stop 09/12/16 at 01:31; Status DC Acetaminophen/ Hydrocodone Bitart (Lortab 5/325) 1 tab 1X ONCE PO ; Start 09/12 at 01:30; Stop 09/12/16 at 01:31; Status DC Albuterol Sulfate (Ventolin Neb Soln) 2.5 mg PRN Q4HRS PRN NEB SHORTNESS OF BREATH; Start 09/12/16 at 02:00; Stop 09/13/16 at 01:59; Status DC Acetaminophen/ Hydrocodone Bitart (Lortab 7.5/325) 1 tab PRN Q6HRS PRN PO MODERATE PAIN Last administered on 09/16/16 12:56; Start 09/12/16 at 03:45 Insulin Aspart (Novolog) 0-5 UNITS TIDWMEALS SQ Last administered on 09/16/16 08:51; Start 09/12/16 at 08:00; Stop 09/16/16 at 12:17; Status DC Dextrose 12.5 gm PRN Q15MIN PRN IV SEE COMMENTS; Start 09/12/16 at 03:45 Vancomycin HCl (Vanco Per Pharmacy) 1 each PRN DAILY PRN MC SEE COMMENTS Last administered on 09/16/16 14:45; Start 09/12/16 at 07:45 Albuterol/ Ipratropium (Duoneb) 3 ml RTQID NEB Last administered on 09/16/16 15:33; Start 09/12/16 at 08:00 Aspirin (Children'S Aspirin) 81 mg DAILY PO Last administered on 09/16/16 08: 46; Start 09/12/16 at 09:00 Bumetanide (Bumex) 1 mg NOON PO Last administered on 09/13/16 12:42; Start at 12:00; Stop 09/14/16 at 11:24; Status DC Diphenhydramine HCl (Benadryl) 25 mg HS PO Last administered on 09/15/16 22:25 ; Start 09/12/16 at 21:00 Acetaminophen/ Hydrocodone Bitart (Lortab 7.5/325) 1 tab PRN QHS PRN PO PAIN Last administered on 09/13/16 20:50; Start 09/12/16 at 07:45 Isosorbide Mononitrate (Imdur) 30 mg DAILY16 PO Last administered on 09/15/16 16:15; Start 09/12/16 at 16:00 Lisinopril (Prinivil) 10 mg DAILY PO ; Start 09/12/16 at 09:00; Stop 09/13/16 at 07:24; Status DC Sertraline HCl (Zoloft) 25 mg DAILY PO Last administered on 09/16/16 08:46; Start 09/12/16 at 09:00 Cyclobenzaprine HCl (Flexeril) 10 mg PRN TID PRN PO MUSCLE SPASMS; Start at 08:00 Multivitamins/ Calcium (Thera M Plus) 1 tab DAILY PO Last administered on 08:46; Start 09/12/16 at 09:00 Fish Oil (Fish Oil) 1,000 mg DAILY PO Last administered on 09/16/16 08:46; Start 09/12/16 at 09:00 Pantoprazole Sodium (Protonix) 40 mg DAILYAC PO Last administered on 09/16/16 08:45; Start 09/12/16 at 08:00 Atorvastatin Calcium 10 mg 10 mg QHS PO Last administered on 09/15/16 22:25; Start 09/12/16 at 21:00 Vancomycin HCl/ Sodium Chloride (Iv Sodium Chloride 0.9% 500ml Bag) 500 ml @ 250 mls/hr 1X ONCE IV Last administered on 09/12/16 08:19; Start 09/12/16 at 08:30; Stop 09/12/16 at 10:29; Status DC Furosemide (Lasix) 40 mg 1X ONCE IVP Last administered on 09/12/16 11:26; Start 09/12/16 at 11:30; Stop 09/12/16 at 11:31; Status DC Vancomycin HCl 1 each 1X ONCE MC ; Start 09/14/16 at 08:00; Stop 09/14/16 at 08 :01; Status DC Sodium Polystyrene Sulfonate (Kayexalate) 15 gm 1X ONCE PO Last administered on 09/13/16 07:59; Start 09/13/16 at 07:30; Stop 09/13/16 at 07:31; Status DC Furosemide (Lasix) 40 mg 1X ONCE IVP Last administered on 09/13/16 07:59; Start 09/13/16 at 07:30; Stop 09/13/16 at 07:31; Status DC Nystatin 1 yusuf 1 yusuf BID TP Last administered on 09/16/16 08:46; Start at 09:00 Vancomycin HCl/ Sodium Chloride (Iv Sodium Chloride 0.9% 250ml) 250 ml @ 167 mls/hr Q48H IV Last administered on 09/16/16 10:06; Start 09/14/16 at 09:30 Bumetanide (Bumex) 2 mg NOON PO Last administered on 09/16/16 12:25; Start at 12:00 Prednisone (Prednisone) 60 mg 1X ONCE PO Last administered on 09/15/16 10:06 ; Start 09/15/16 at 09:30; Stop 09/15/16 at 09:31; Status DC Bumetanide (Bumex) 2 mg 1X STAT IV Last administered on 09/15/16 09:37; Start 09/15/16 at 09:03; Stop 09/15/16 at 09:10; Status DC Furosemide (Lasix) 40 mg 1X ONCE IVP Last administered on 09/15/16 12:17; Start 09/15/16 at 12:00; Stop 09/15/16 at 12:01; Status DC Guaifenesin (Robitussin Dm) 10 ml PRN Q8HRS PRN PO COUGH; Start 09/15/16 at 15: 30; Stop 09/15/16 at 16:17; Status DC Guaifenesin (Robitussin Dm) 5 ml PRN Q8HRS PRN PO COUGH Last administered on 17:03; Start 09/15/16 at 16:30 Insulin Aspart (Novolog) 0-5 UNITS TIDWMEALHC SQ Last administered on 12:28; Start 09/16/16 at 12:30 Insulin Aspart Prota 70%/Aspart 30% (Novolog Mix 70-30) 10 units BIDWMEALS SQ ; Start 09/16/16 at 17:00 Acetaminophen/ Hydrocodone Bitart (Lortab 7.5/325) 2 tab PRN Q6HRS PRN PO PAIN ; Start 09/16/16 at 13:45 Active Scripts Active Sertraline Hcl 25 Mg Tablet 25 Mg PO DAILY Reported Bactrim 400-80 Mg Tablet (Sulfamethoxazole/Trimethoprim) 1 Each Tablet 1 Tab PO BID Bactrim 400-80 Mg Tablet (Sulfamethoxazole/Trimethoprim) 1 Each Tablet 1 Tab PO BID Bumetanide 1 Mg Tablet 1 Tab PO NOON Humulin 70-30 Vial (Hum Insulin Nph/Reg Insulin Hm) 100 Unit/1 Ml Vial 15 Unit SQ BIDAC Hydrocodone-Apap 7.5-325 (Hydrocodone Bit/Acetaminophen) 1 Each Tablet 1 Tab PO HS PRN Vitamin D2 (Ergocalciferol (Vitamin D2)) 50,000 Unit Capsule 50,000 Unit PO WEEKLY NEXT DOSE: PER USUAL TIME Prilosec (Omeprazole) 20 Mg Capsule.dr 1 Cap PO BID [place]-3 1,000 Mg Softgel ([place]-3 Fatty Acids/Fish Oil) 1 Each Capsule 1 Each PO DAILY Centrum Silver Tablet (Multivits-Min/Fa/Lycopene/Lut) 1 Each Tablet 1 Each PO DAILY Cyclobenzaprine Hcl 5 Mg Tablet 10 Mg PO TID PRN NEXT DOSE: WHEN NEEDED Benadryl (Diphenhydramine Hcl) 25 Mg Capsule 25 Mg PO HS Pravachol (Pravastatin Sodium) 40 Mg Tablet 40 Mg PO DAILY Potassium Chloride 10 Meq Capsule.er 10 Meq PO DAILY Lisinopril 10 Mg Tablet 10 Mg PO DAILY Imdur (Isosorbide Mononitrate) 30 Mg Tab.er.24h 30 Mg PO DAILY16 Children's Aspirin (Aspirin) 81 Mg Tab.chew 81 Mg PO DAILY Vitals/I & O Vital Sign - Last 24 Hours 09/15/16 09/15/16 09/15/16 09/15/16 16:15 17:13 19:00 19:31 Temp 99.1 99.1 Pulse 74 87 Resp 18 B/P 124/71 144/57 Pulse Ox 94 94 O2 Delivery Nasal Cannula Nasal Cannula Nasal Cannula O2 Flow Rate 3.0 3.0 09/15/16 09/15/16 09/15/16 09/15/16 20:00 22:25 23:00 23:25 Temp 98.5 98.5 Pulse 72 Resp 18 B/P 162/54 Pulse Ox 94 90 90 O2 Delivery Nasal Cannula Nasal Cannula Nasal Cannula O2 Flow Rate 3.0 3.0 09/16/16 09/16/16 09/16/16 09/16/16 03:00 07:53 08:00 08:05 Temp 98.9 97.5 98.9 97.5 Pulse 71 67 Resp 18 18 B/P 106/52 165/58 Pulse Ox 95 94 93 O2 Delivery Nasal Cannula Nasal Cannula Nasal Cannula Nasal Cannula O2 Flow Rate 3.0 3.0 2.0 09/16/16 09/16/16 09/16/16 09/16/16 10:55 11:42 12:56 14:36 Temp 97.5 97.5 Pulse 66 Resp 18 B/P 132/50 Pulse Ox 94 93 O2 Delivery Nasal Cannula Nasal Cannula Nasal Cannula Nasal Cannula O2 Flow Rate 2.0 2.0 3.0 3.0 Intake and Output 09/15/16 09/15/16 09/16/16 15:00 23:00 07:00 Intake Total 240 ml 760 ml Output Total 300 ml 250 ml 1050 ml Balance -60 ml 510 ml -1050 ml CELSA JAVIER MD Sep 16, 2016 15:38
[2016-09-16 15:50] VITALS: BP 104/48
[2016-09-16] MEDS: ISOSORBIDE MONONITRATE ER 30 MG TAB.ER.24H PO SCH (15:55)
[2016-09-16] MEDS: FUROSEMIDE 40 MG/4 ML VIAL IVP SCH (16:03)
[2016-09-16] MEDS: INSULN ASP PRT/INSULIN ASPART 300 UNITS/3 ML INSULN.PEN. SQ SCH (17:22)
[2016-09-16 19:00] VITALS: BP 140/52
[2016-09-16] MEDS: ATORVASTATIN CALCIUM 10 MG TABLET. PO SCH (20:30)
[2016-09-16] MEDS: DIPHENHYDRAMINE HCL 25 MG CAPSULE PO SCH (20:30)
[2016-09-16 23:00] VITALS: BP 115/34
[2016-09-17 03:00] VITALS: BP 139/45
[2016-09-17] MEDS: PANTOPRAZOLE 40 MG TABLET. PO SCH (06:09)
[2016-09-17] MEDS: IPRATRPIUM/ALBUTEROL 0.5/2.5MG 3 ML NEBU. NEB SCH ×4 (07:48→19:53)
[2016-09-17] MEDS: INSULIN ASPART 300 UNITS/3 ML INSULN.PEN SQ SCH ×4 (08:00→21:00)
[2016-09-17 08:05] VITALS: BP 140/56
[2016-09-17] MEDS: ASPIRIN 81 MG TAB.CHEW PO SCH (08:58)
[2016-09-17] MEDS: FUROSEMIDE 40 MG/4 ML VIAL IVP SCH (08:58)
[2016-09-17] MEDS: OMEGA-3 FATTY ACIDS/FISH OIL 1,000 MG CAPSULE. PO SCH (08:58)
[2016-09-17] MEDS: MULTIVITAMIN with MINERAL TABLET. PO SCH (08:58)
[2016-09-17] MEDS: SERTRALINE 25 MG TABLET. PO SCH (08:58)
[2016-09-17] MEDS: INSULN ASP PRT/INSULIN ASPART 300 UNITS/3 ML INSULN.PEN. SQ SCH ×2 (09:10→17:00)
[2016-09-17] MEDS: NYSTATIN TOPICAL POWDER 15GM BOTTLE. TP SCH ×2 (09:10→21:03)
--- NOTE | 2016-09-17 10:33 | PDOC ---
PULMONARY PROGRESS NOTES Subjective no soa feels better Vitals Vital Signs Date Time Temp Pulse Resp B/P Pulse Ox O2 Delivery O2 Flow Rate FiO2 09/17/16 08:05 97.9 73 20 140/56 95 Nasal Cannula 3.0 97.9 General: Alert, No acute distress Lungs: Other (resolved wheezing) Cardiovascular: S1, S2 Abdomen: Soft, Non-tender Neuro Exam: Alert Extremities: No Edema, Other Skin: Warm Labs Laboratory Tests Test 09/15/16 11:34 09/15/16 16:47 09/15/16 21:57 09/16/16 00:34 Glucose (Fingerstick) 212mg/dL (70-99) 239mg/dL (70-99) 290mg/dL (70-99) 381mg/dL (70-99) Test 09/16/16 02:30 09/16/16 08:07 09/16/16 11:01 09/16/16 16:36 White Blood Count 2.8x10^3/uL (4.0-11.0) Red Blood Count 3.60x10^6/uL (3.50-5.40) Hemoglobin 11.1g/dL (12.0-15.5) Hematocrit 34.7% (36.0-47.0) Mean Corpuscular Volume 96fL (79-100) Mean Corpuscular Hemoglobin 31pg (25-35) Mean Corpuscular Hemoglobin Concent 32g/dL (31-37) Red Cell Distribution Width 14.3% (11.5-14.5) Platelet Count 114x10^3/uL (140-400) Sodium Level 140mmol/L (136-145) Potassium Level 4.6mmol/L (3.5-5.1) Chloride Level 101mmol/L (98-107) Carbon Dioxide Level 30mmol/L (21-32) Anion Gap 9 (6-14) Blood Urea Nitrogen 47mg/dL (7-20) Creatinine 1.7mg/dL (0.6-1.0) Estimated GFR (Cockcroft-Gault) 28.4 Glucose Level 357mg/dL (70-99) Calcium Level 8.6mg/dL (8.5-10.1) Glucose (Fingerstick) 306mg/dL (70-99) 295mg/dL (70-99) 261mg/dL (70-99) Test 09/16/16 19:33 09/17/16 08:09 Glucose (Fingerstick) 175mg/dL (70-99) 103mg/dL (70-99) Laboratory Tests Test 09/16/16 11:01 09/16/16 16:36 09/16/16 19:33 09/17/16 08:09 Glucose (Fingerstick) 295mg/dL (70-99) 261mg/dL (70-99) 175mg/dL (70-99) 103mg/dL (70-99) Medications Active Scripts Medications Dose Route/Sig Days Date Category Dose Instructions Bactrim 400-80 Mg Tablet (Sulfamethoxazole/Trimethoprim) 1 Each Tablet 1 Tab PO BID 09/12/16 Reported Bactrim 400-80 Mg Tablet (Sulfamethoxazole/Trimethoprim) 1 Each Tablet 1 Tab PO BID 09/12/16 Reported Bumetanide 1 Mg Tablet 1 Tab PO NOON 02/18/16 Reported Humulin 70-30 Vial (Hum Insulin Nph/Reg Insulin Hm) 100 Unit/1 Ml Vial 15 Unit SQ BIDAC 02/18/16 Reported Sertraline Hcl 25 Mg Tablet 25 Mg PO DAILY 12/21/15 Rx Hydrocodone-Apap 7.5-325 (Hydrocodone Bit/Acetaminophen) 1 Each Tablet 1 Tab PO HS PRN 08/10/15 Reported Vitamin D2 (Ergocalciferol (Vitamin D2)) 50,000 Unit Capsule 50,000 Unit PO WEEKLY 08/10/15 Reported NEXT DOSE: PER USUAL TIME Prilosec (Omeprazole) 20 Mg Capsule.dr 1 Cap PO BID 08/10/15 Reported [place]-3 1,000 Mg Softgel ([place]-3 Fatty Acids/Fish Oil) 1 Each Capsule 1 Each PO DAILY 08/10/15 Reported Centrum Silver Tablet (Multivits-Min/Fa/Lycopene/Lut) 1 Each Tablet 1 Each PO DAILY 08/10/15 Reported Cyclobenzaprine Hcl 5 Mg Tablet 10 Mg PO TID PRN 04/15/14 Reported NEXT DOSE: WHEN NEEDED Benadryl (Diphenhydramine Hcl) 25 Mg Capsule 25 Mg PO HS 01/25/14 Reported Pravachol (Pravastatin Sodium) 40 Mg Tablet 40 Mg PO DAILY 01/25/14 Reported Potassium Chloride 10 Meq Capsule.er 10 Meq PO DAILY 01/24/14 Reported Lisinopril 10 Mg Tablet 10 Mg PO DAILY 01/24/14 Reported Imdur (Isosorbide Mononitrate) 30 Mg Tab.er.24h 30 Mg PO DAILY16 01/24/14 Reported Children's Aspirin (Aspirin) 81 Mg Tab.chew 81 Mg PO DAILY 01/24/14 Reported Comments CXR 09/14 Worsening CHF Impression . 1. Dyspnea with acute hypoxic respiratory failure with bilateral interstitial infiltrates. this is secondary to [id number] diastolic heart failure/ MR. noncontrast CT chest with mild interstitial infiltrates / basal effusions related to CHF/ CXR with worsening CHF 09/14 2. History of stage IV lung cancer with metastasis to the abdominal wall. Status post radiation. 3. History of tobacco use, suspect underlying chronic obstructive pulmonary disease. 4. Renal insufficiency. 5. Increased troponin levels. 6. 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 1. Would continue with present oxygen. cxr 09/14 with worsening CHF (wheezing) / repeat in am 2. Diuresis. 3. noncontrast CT chest reviewed. increase mass size RUL. follow oncology recommendations, no further chemo 4. echocardiogram reviewed. severe mitral calcification. cardiology to address severity of mitral valve / not a candidate for surgery. ? AKR 5. Bronchodilators. 6. Treatment of cellulitis per primary care. 7. Oncology to f/u on lung cancer. SETH MULLINS MD Sep 17, 2016 10:33
--- NOTE | 2016-09-17 11:08 | PDOC ---
Renal-Progress Notes Subjective Notes Notes NO SOB History of Present Illness Hx of present illness STABLE Vitals Vitals Vital Signs Date Time Temp Pulse Resp B/P Pulse Ox O2 Delivery O2 Flow Rate FiO2 09/17/16 08:05 97.9 73 20 140/56 95 Nasal Cannula 3.0 97.9 Weight Weight [ ] I.O. Intake and Output Intake and Output 09/17/16 07:00 Intake Total 520 ml Output Total 1200 ml Balance -680 ml Intake Oral 270 ml IV Total 250 ml Output Urine Total 1200 ml Labs Labs Laboratory Tests Test 09/16/16 16:36 09/16/16 19:33 09/17/16 08:09 Glucose (Fingerstick) 261mg/dL (70-99) 175mg/dL (70-99) 103mg/dL (70-99) Micro Micro Microbiology 09/12/16 Blood Culture - Final, Complete NO GROWTH AFTER 5 DAYS 09/12/16 Urine Culture - Final, Complete 09/12/16 Urine Culture Result 1 (MAMI) - Final, Complete Review of Systems Constitutional: yes: alert, oriented Ears/Nose/Throat: Yes: no symptom reported Eyes: Yes: no symptom reported Pulmonary: Yes dyspnea Cardiovascular: Yes no symptom reported Gastrointestional: Yes: no symptom reported Genitourinary: Yes: no symptom reported Musculoskeletal: Yes: muscle stiffness Physical Exam General Appearance: no apparent distress Skin: warm Respiratory: decreased breath sounds Heart: S1S2, RRR Abdomen: soft, bowel sounds present Genitourinary: bladder flat Neurology: alert, oriented Musculoskeletal: Weakness, Swelling, Stiffness, Other (back pain) Assessment Assessment IMP GUME - BETTER WITH CR OF 1.7 CKD STAGE 3 WITH CR OF 1.3-1.5 HYPERKALEMIA-RESOLVED LLE CELLULITIS STAGE 4 LUNG CA PLEURAL EFFUSIONS PULMONARY HTN MILD HYPERVOLEMIA PLAN SUPPORTIVE CARE CONT BUMEX PO AM LABS WILL FOLLOW CHAMP PANIAGUA MD Sep 17, 2016 11:08
[2016-09-17 11:15] VITALS: BP 134/43
--- NOTE | 2016-09-17 11:44 | PDOC ---
PROGRESS NOTES Subjective Subjective Patient reports pain in left foot and leg is some better without the Tubi nail kegger dressing. Having a productive cough at times. Objective Objective Vital Signs Date Time Temp Pulse Resp B/P Pulse Ox O2 Delivery O2 Flow Rate FiO2 09/17/16 08:05 97.9 73 20 140/56 95 Nasal Cannula 3.0 97.9 Intake and Output 09/17/16 07:00 Intake Total 520 ml Output Total 1200 ml Balance -680 ml Intake Oral 270 ml IV Total 250 ml Output Urine Total 1200 ml Physical Exam Abdomen: Normal bowel sounds, Soft, No tenderness Heart: Regular rate Extremities: No edema (dressing in place left LE) General: Alert, Oriented X3, No acute distress Lungs: Other (BS decreased throughout but CTA) Assessment Assessment Problems Medical Problems: (1) Acute and chronic respiratory failure Status: Acute (2) Acute on chronic renal failure Status: Acute (3) Congestive heart failure Status: Acute (4) Hyperkalemia Status: Acute (5) Hypoglycemia associated with diabetes Status: Acute Plan Plan of Care 1. Acute on chronic systolic CHF with pulmonary HTN and valvular disease - Dr Mora recommends medical tx only due to patient's age and debility. Now back on IV Lasix daily. 2. acute on chronic respiratory failure - stable, continue O2 and nebs. 3. cellulitis L LE - continue Vancomycin. Xray of foot was unremarkable, pain has improved. 4. DM2 - control much improved, continue BID insulin and SS. 5. acute renal failure with CKD - improved, close to baseline. Check lab in AM. 6. metastatic lung ca - stable, no tx presently planned. 7. debility - continue therapies, patient encouraged to be out of bed daily. Comment Review of Relevant I have reviewed the following items edna (where applicable) has been applied. Labs Laboratory Tests Test 09/15/16 16:47 09/15/16 21:57 09/16/16 00:34 09/16/16 02:30 Glucose (Fingerstick) 239mg/dL (70-99) 290mg/dL (70-99) 381mg/dL (70-99) White Blood Count 2.8x10^3/uL (4.0-11.0) Red Blood Count 3.60x10^6/uL (3.50-5.40) Hemoglobin 11.1g/dL (12.0-15.5) Hematocrit 34.7% (36.0-47.0) Mean Corpuscular Volume 96fL (79-100) Mean Corpuscular Hemoglobin 31pg (25-35) Mean Corpuscular Hemoglobin Concent 32g/dL (31-37) Red Cell Distribution Width 14.3% (11.5-14.5) Platelet Count 114x10^3/uL (140-400) Sodium Level 140mmol/L (136-145) Potassium Level 4.6mmol/L (3.5-5.1) Chloride Level 101mmol/L (98-107) Carbon Dioxide Level 30mmol/L (21-32) Anion Gap 9 (6-14) Blood Urea Nitrogen 47mg/dL (7-20) Creatinine 1.7mg/dL (0.6-1.0) Estimated GFR (Cockcroft-Gault) 28.4 Glucose Level 357mg/dL (70-99) Calcium Level 8.6mg/dL (8.5-10.1) Test 09/16/16 08:07 09/16/16 11:01 09/16/16 16:36 09/16/16 19:33 Glucose (Fingerstick) 306mg/dL (70-99) 295mg/dL (70-99) 261mg/dL (70-99) 175mg/dL (70-99) Test 09/17/16 08:09 09/17/16 11:16 Glucose (Fingerstick) 103mg/dL (70-99) 114mg/dL (70-99) Laboratory Tests Test 09/16/16 16:36 09/16/16 19:33 09/17/16 08:09 09/17/16 11:16 Glucose (Fingerstick) 261mg/dL (70-99) 175mg/dL (70-99) 103mg/dL (70-99) 114mg/dL (70-99) Microbiology 09/12/16 Blood Culture - Final, Complete NO GROWTH AFTER 5 DAYS 09/12/16 Urine Culture - Final, Complete 09/12/16 Urine Culture Result 1 (MAMI) - Final, Complete Medications Current Medications Albuterol/ Ipratropium 3 ml 3 ml 1X ONCE NEB Last administered on 09/11/16t 22 :40; Start 09/11/16 at 22:45; Stop 09/11/16 at 22:46; Status DC Levofloxacin/ Dextrose (LEVAQUIN 750mg PREMIX) 150 ml @ 100 mls/hr 1X ONCE IV Last administered on 09/12/16 04:27; Start 09/12/16 at 01:00; Stop 09/12/16 at 02:29; Status DC Albuterol/ Ipratropium (Duoneb) 3 ml PRN Q4HRS PRN NEB SOA; Start 09/12/16 at 00:45; Stop 09/12/16 at 06:00; Status DC Albuterol/ Ipratropium (Duoneb) 3 ml 1X ONCE NEB Last administered on 01:49; Start 09/12/16 at 01:30; Stop 09/12/16 at 01:31; Status DC Acetaminophen/ Hydrocodone Bitart (Lortab 5/325) 1 tab 1X ONCE PO ; Start 09/12 at 01:30; Stop 09/12/16 at 01:31; Status DC Albuterol Sulfate (Ventolin Neb Soln) 2.5 mg PRN Q4HRS PRN NEB SHORTNESS OF BREATH; Start 09/12/16 at 02:00; Stop 09/13/16 at 01:59; Status DC Acetaminophen/ Hydrocodone Bitart (Lortab 7.5/325) 1 tab PRN Q6HRS PRN PO MODERATE PAIN Last administered on 09/16/16 12:56; Start 09/12/16 at 03:45 Insulin Aspart (Novolog) 0-5 UNITS TIDWMEALS SQ Last administered on 09/16/16 08:51; Start 09/12/16 at 08:00; Stop 09/16/16 at 12:17; Status DC Dextrose 12.5 gm PRN Q15MIN PRN IV SEE COMMENTS; Start 09/12/16 at 03:45 Vancomycin HCl (Vanco Per Pharmacy) 1 each PRN DAILY PRN MC SEE COMMENTS Last administered on 09/16/16 14:45; Start 09/12/16 at 07:45 Albuterol/ Ipratropium (Duoneb) 3 ml RTQID NEB Last administered on 09/17/16 07:48; Start 09/12/16 at 08:00 Aspirin (Children'S Aspirin) 81 mg DAILY PO Last administered on 09/17/16 08: 58; Start 09/12/16 at 09:00 Bumetanide (Bumex) 1 mg NOON PO Last administered on 09/13/16 12:42; Start at 12:00; Stop 09/14/16 at 11:24; Status DC Diphenhydramine HCl (Benadryl) 25 mg HS PO Last administered on 09/16/16 20:30 ; Start 09/12/16 at 21:00 Acetaminophen/ Hydrocodone Bitart (Lortab 7.5/325) 1 tab PRN QHS PRN PO PAIN Last administered on 09/13/16 20:50; Start 09/12/16 at 07:45 Isosorbide Mononitrate (Imdur) 30 mg DAILY16 PO Last administered on 09/15/16 16:15; Start 09/12/16 at 16:00 Lisinopril (Prinivil) 10 mg DAILY PO ; Start 09/12/16 at 09:00; Stop 09/13/16 at 07:24; Status DC Sertraline HCl (Zoloft) 25 mg DAILY PO Last administered on 09/17/16 08:58; Start 09/12/16 at 09:00 Cyclobenzaprine HCl (Flexeril) 10 mg PRN TID PRN PO MUSCLE SPASMS; Start at 08:00 Multivitamins/ Calcium (Thera M Plus) 1 tab DAILY PO Last administered on 08:58; Start 09/12/16 at 09:00 Fish Oil (Fish Oil) 1,000 mg DAILY PO Last administered on 09/17/16 08:58; Start 09/12/16 at 09:00 Pantoprazole Sodium (Protonix) 40 mg DAILYAC PO Last administered on 09/17/16 06:09; Start 09/12/16 at 08:00 Atorvastatin Calcium 10 mg 10 mg QHS PO Last administered on 09/16/16 20:30; Start 09/12/16 at 21:00 Vancomycin HCl/ Sodium Chloride (Iv Sodium Chloride 0.9% 500ml Bag) 500 ml @ 250 mls/hr 1X ONCE IV Last administered on 09/12/16 08:19; Start 09/12/16 at 08:30; Stop 09/12/16 at 10:29; Status DC Furosemide (Lasix) 40 mg 1X ONCE IVP Last administered on 09/12/16 11:26; Start 09/12/16 at 11:30; Stop 09/12/16 at 11:31; Status DC Vancomycin HCl 1 each 1X ONCE MC ; Start 09/14/16 at 08:00; Stop 09/14/16 at 08 :01; Status DC Sodium Polystyrene Sulfonate (Kayexalate) 15 gm 1X ONCE PO Last administered on 09/13/16 07:59; Start 09/13/16 at 07:30; Stop 09/13/16 at 07:31; Status DC Furosemide (Lasix) 40 mg 1X ONCE IVP Last administered on 09/13/16 07:59; Start 09/13/16 at 07:30; Stop 09/13/16 at 07:31; Status DC Nystatin 1 yusuf 1 yusuf BID TP Last administered on 09/17/16 09:10; Start at 09:00 Vancomycin HCl/ Sodium Chloride (Iv Sodium Chloride 0.9% 250ml) 250 ml @ 167 mls/hr Q48H IV Last administered on 09/16/16 10:06; Start 09/14/16 at 09:30 Bumetanide (Bumex) 2 mg NOON PO Last administered on 09/16/16 12:25; Start at 12:00; Stop 09/16/16 at 15:44; Status DC Prednisone (Prednisone) 60 mg 1X ONCE PO Last administered on 09/15/16 10:06 ; Start 09/15/16 at 09:30; Stop 09/15/16 at 09:31; Status DC Bumetanide (Bumex) 2 mg 1X STAT IV Last administered on 09/15/16 09:37; Start 09/15/16 at 09:03; Stop 09/15/16 at 09:10; Status DC Furosemide (Lasix) 40 mg 1X ONCE IVP Last administered on 09/15/16 12:17; Start 09/15/16 at 12:00; Stop 09/15/16 at 12:01; Status DC Guaifenesin (Robitussin Dm) 10 ml PRN Q8HRS PRN PO COUGH; Start 09/15/16 at 15: 30; Stop 09/15/16 at 16:17; Status DC Guaifenesin (Robitussin Dm) 5 ml PRN Q8HRS PRN PO COUGH Last administered on 17:03; Start 09/15/16 at 16:30 Insulin Aspart (Novolog) 0-5 UNITS TIDWMEALHC SQ Last administered on 21:57; Start 09/16/16 at 12:30 Insulin Aspart Prota 70%/Aspart 30% (Novolog Mix 70-30) 10 units BIDWMEALS SQ Last administered on 09/17/16 09:10; Start 09/16/16 at 17:00 Acetaminophen/ Hydrocodone Bitart (Lortab 7.5/325) 2 tab PRN Q6HRS PRN PO PAIN Last administered on 09/16/16 20:31; Start 09/16/16 at 13:45 Furosemide (Lasix) 40 mg DAILY IVP Last administered on 09/17/16 08:58; Start 09/16/16 at 16:30 Active Scripts Active Sertraline Hcl 25 Mg Tablet 25 Mg PO DAILY Reported Bactrim 400-80 Mg Tablet (Sulfamethoxazole/Trimethoprim) 1 Each Tablet 1 Tab PO BID Bactrim 400-80 Mg Tablet (Sulfamethoxazole/Trimethoprim) 1 Each Tablet 1 Tab PO BID Bumetanide 1 Mg Tablet 1 Tab PO NOON Humulin 70-30 Vial (Hum Insulin Nph/Reg Insulin Hm) 100 Unit/1 Ml Vial 15 Unit SQ BIDAC Hydrocodone-Apap 7.5-325 (Hydrocodone Bit/Acetaminophen) 1 Each Tablet 1 Tab PO HS PRN Vitamin D2 (Ergocalciferol (Vitamin D2)) 50,000 Unit Capsule 50,000 Unit PO WEEKLY NEXT DOSE: PER USUAL TIME Prilosec (Omeprazole) 20 Mg Capsule.dr 1 Cap PO BID [place]-3 1,000 Mg Softgel ([place]-3 Fatty Acids/Fish Oil) 1 Each Capsule 1 Each PO DAILY Centrum Silver Tablet (Multivits-Min/Fa/Lycopene/Lut) 1 Each Tablet 1 Each PO DAILY Cyclobenzaprine Hcl 5 Mg Tablet 10 Mg PO TID PRN NEXT DOSE: WHEN NEEDED Benadryl (Diphenhydramine Hcl) 25 Mg Capsule 25 Mg PO HS Pravachol (Pravastatin Sodium) 40 Mg Tablet 40 Mg PO DAILY Potassium Chloride 10 Meq Capsule.er 10 Meq PO DAILY Lisinopril 10 Mg Tablet 10 Mg PO DAILY Imdur (Isosorbide Mononitrate) 30 Mg Tab.er.24h 30 Mg PO DAILY16 Children's Aspirin (Aspirin) 81 Mg Tab.chew 81 Mg PO DAILY Vitals/I & O Vital Sign - Last 24 Hours 09/16/16 09/16/16 09/16/16 09/16/16 11:42 12:56 14:36 15:37 Pulse Ox 93 94 O2 Delivery Nasal Cannula Nasal Cannula Nasal Cannula Nasal Cannula O2 Flow Rate 2.0 3.0 3.0 2.0 09/16/16 09/16/16 09/16/16 09/16/16 15:50 19:00 20:00 20:31 Temp 97.7 98.1 97.7 98.1 Pulse 75 78 Resp 18 22 B/P 104/48 140/52 Pulse Ox 92 93 92 O2 Delivery Nasal Cannula Nasal Cannula Nasal Cannula Nasal Cannula O2 Flow Rate 2.0 3.0 2.0 2.0 09/16/16 09/16/16 09/16/16 09/17/16 20:51 21:31 23:00 03:00 Temp 98.8 97.7 98.8 97.7 Pulse 69 65 Resp 20 22 B/P 115/34 139/45 Pulse Ox 95 95 92 95 O2 Delivery Nasal Cannula Nasal Cannula Nasal Cannula Nasal Cannula O2 Flow Rate 2.0 2.0 3.0 3.0 09/17/16 09/17/16 09/17/16 07:45 07:49 08:05 Temp 97.9 97.9 Pulse 73 Resp 20 B/P 140/56 Pulse Ox 95 95 O2 Delivery Nasal Cannula Nasal Cannula Nasal Cannula O2 Flow Rate 3.0 2.0 3.0 Intake and Output 09/16/16 09/16/16 09/17/16 15:00 23:00 07:00 Intake Total 340 ml 180 ml Output Total 1200 ml Balance 340 ml 180 ml -1200 ml JASON FERNANDO MD Sep 17, 2016 11:44
[2016-09-17] MEDS: GUAIFENESIN DM 200MG/20MG 10 ML SYRUP. PO PRN (13:01)
[2016-09-17] MEDS: VANCOMYCIN PER PHARMACY MC PRN ×2 (14:36→14:38)
[2016-09-17 15:20] VITALS: BP 121/46
[2016-09-17] MEDS: ISOSORBIDE MONONITRATE ER 30 MG TAB.ER.24H PO SCH (16:04)
[2016-09-17 19:00] VITALS: BP 132/44
[2016-09-17] MEDS: DIPHENHYDRAMINE HCL 25 MG CAPSULE PO SCH (21:03)
[2016-09-17] MEDS: ATORVASTATIN CALCIUM 10 MG TABLET. PO SCH (21:03)
[2016-09-17 23:00] VITALS: BP 141/47
[2016-09-18 03:00] VITALS: BP 105/32
[2016-09-18 07:00] VITALS: BP 119/40
[2016-09-18] MEDS: IPRATRPIUM/ALBUTEROL 0.5/2.5MG 3 ML NEBU. NEB SCH ×4 (07:36→19:15)
[2016-09-18] MEDS: INSULIN ASPART 300 UNITS/3 ML INSULN.PEN SQ SCH ×4 (08:00→21:00)
[2016-09-18] MEDS ORDERED: BUME1TAB PO (08:35)
[2016-09-18] MEDS ORDERED: POLY17PO5 PO (08:35)
[2016-09-18] MEDS ORDERED: IPRA3AMP NEB (08:35)
[2016-09-18] MEDS ORDERED: BISACODYL 10 MG SUPP.RECT PR PRN (08:45)
--- NOTE | 2016-09-18 08:54 | RAD ---
Exam performed: Single view chest. History: CHF. Date of service: 09/18/16. Comparison: 09/15/16. Single AP upright portable view chest findings: Mild cardiomegaly. Pulmonary vascularity is congested. There is interval increase in diffuse airspace opacities involving both lower lobes with small pleural effusions. Previous median sternotomy. Bipolar pacemaker. Advanced degenerative changes involving the right shoulder with mild degenerative changes involving the left shoulder. Impression: Single significant interval worsening in diffuse right basilar airspace opacities or pleural effusions. Persistent central vascular congestion. The constellation of findings probably reflect CHF or diffuse infiltrates. Correlate clinically.
[2016-09-18] MEDS: FUROSEMIDE 40 MG/4 ML VIAL IVP SCH (09:24)
[2016-09-18] MEDS: PANTOPRAZOLE 40 MG TABLET. PO SCH (09:24)
[2016-09-18] MEDS: ASPIRIN 81 MG TAB.CHEW PO SCH (09:25)
[2016-09-18] MEDS: OMEGA-3 FATTY ACIDS/FISH OIL 1,000 MG CAPSULE. PO SCH (09:25)
[2016-09-18] MEDS: SERTRALINE 25 MG TABLET. PO SCH (09:26)
[2016-09-18] MEDS: MULTIVITAMIN with MINERAL TABLET. PO SCH (09:26)
[2016-09-18] MEDS: POLYETHYLENE GLYCOL 3350 17 GM PACKET. PO SCH (09:26)
[2016-09-18] MEDS: NYSTATIN TOPICAL POWDER 15GM BOTTLE. TP SCH ×2 (09:27→22:09)
[2016-09-18 09:30] LABS: CALCIUM 8.9 mg/dL (8.5-10.1); CREATININE 1.3 mg/dL (0.6-1.0); GFR 38.7; POTASSIUM 4.8 mmol/L (3.5-5.1)
--- NOTE | 2016-09-18 09:46 | PDOC ---
PROGRESS NOTES Subjective Subjective Pt A&Ox3, cooperative with daughter at bedside. States that she is not having any chest pains. Denies having shortness of breath at this time. C/o lingering cough. C/o decreased appetite with increased constipation. Daughter offers that she has been taking her pain medications more and feels that is contributing to her constipation. Objective Objective Vital Signs Date Time Temp Pulse Resp B/P Pulse Ox O2 Delivery O2 Flow Rate FiO2 09/18/16 07:37 Nasal Cannula 3.0 09/18/16 07:00 97.7 77 18 119/40 96 97.7 Intake and Output 09/18/16 07:00 Intake Total 280 ml Output Total 1800 ml Balance -1520 ml Intake Oral 280 ml Output Urine Total 1800 ml Physical Exam Abdomen: Normal bowel sounds, Soft, No tenderness, No hepatosplenomegaly, No masses Heart: Regular rate, Normal S1, Normal S2, No murmurs, Gallops Extremities: No clubbing, No cyanosis, No edema, Normal pulses, Other (left lower remains tender to touch) General: Alert, Oriented X3, Cooperative, mild distress Lungs: Other (insp/exp wheezes throughout lung saunders) Neck: Other (bialteral carotid bruits) Skin: Other (redness to bilat lower ext.) Assessment Assessment Problems Medical Problems: (1) Acute and chronic respiratory failure Status: Acute (2) Acute on chronic renal failure Status: Acute (3) Congestive heart failure Status: Acute (4) Hyperkalemia Status: Acute (5) Hypoglycemia associated with diabetes Status: Acute Plan Plan of Care Worsening wheezes throughout lung saunders Chest xray from 09/18/2016 indicates worsening pleural effusions and vascular congestion Consider increased Lasix . Comment Review of Relevant I have reviewed the following items edna (where applicable) has been applied. Labs Laboratory Tests Test 09/16/16 11:01 09/16/16 16:36 09/16/16 19:33 09/17/16 08:09 Glucose (Fingerstick) 295mg/dL (70-99) 261mg/dL (70-99) 175mg/dL (70-99) 103mg/dL (70-99) Test 09/17/16 11:16 09/17/16 16:40 09/17/16 20:42 09/18/16 07:32 Glucose (Fingerstick) 114mg/dL (70-99) 104mg/dL (70-99) 169mg/dL (70-99) 159mg/dL (70-99) Test 09/18/16 08:55 Sodium Level 143mmol/L (136-145) Potassium Level 4.8mmol/L (3.5-5.1) Chloride Level 103mmol/L (98-107) Carbon Dioxide Level 32mmol/L (21-32) Anion Gap 8 (6-14) Blood Urea Nitrogen 44mg/dL (7-20) Creatinine 1.3mg/dL (0.6-1.0) Estimated GFR (Cockcroft-Gault) 38.7 Glucose Level 203mg/dL (70-99) Calcium Level 8.9mg/dL (8.5-10.1) Vancomycin Level Trough 16.2mcg/mL (10.0-20.0) Vancomycin Last Dose Date 09/16/16 Vancomycin Last Dose Time 1000 Laboratory Tests Test 09/17/16 11:16 09/17/16 16:40 09/17/16 20:42 09/18/16 07:32 Glucose (Fingerstick) 114mg/dL (70-99) 104mg/dL (70-99) 169mg/dL (70-99) 159mg/dL (70-99) Test 09/18/16 08:55 Sodium Level 143mmol/L (136-145) Potassium Level 4.8mmol/L (3.5-5.1) Chloride Level 103mmol/L (98-107) Carbon Dioxide Level 32mmol/L (21-32) Anion Gap 8 (6-14) Blood Urea Nitrogen 44mg/dL (7-20) Creatinine 1.3mg/dL (0.6-1.0) Estimated GFR (Cockcroft-Gault) 38.7 Glucose Level 203mg/dL (70-99) Calcium Level 8.9mg/dL (8.5-10.1) Vancomycin Level Trough 16.2mcg/mL (10.0-20.0) Vancomycin Last Dose Date 09/16/16 Vancomycin Last Dose Time 1000 Microbiology 09/12/16 Blood Culture - Final, Complete NO GROWTH AFTER 5 DAYS 09/12/16 Urine Culture - Final, Complete 09/12/16 Urine Culture Result 1 (MAMI) - Final, Complete Medications Current Medications Albuterol/ Ipratropium 3 ml 3 ml 1X ONCE NEB Last administered on 09/11/16 22 :40; Start 09/11/16 at 22:45; Stop 09/11/16 at 22:46; Status DC Levofloxacin/ Dextrose (LEVAQUIN 750mg PREMIX) 150 ml @ 100 mls/hr 1X ONCE IV Last administered on 09/12/16 04:27; Start 09/12/16 at 01:00; Stop 09/12/16 at 02:29; Status DC Albuterol/ Ipratropium (Duoneb) 3 ml PRN Q4HRS PRN NEB SOA; Start 09/12/16 at 00:45; Stop 09/12/16 at 06:00; Status DC Albuterol/ Ipratropium (Duoneb) 3 ml 1X ONCE NEB Last administered on 01:49; Start 09/12/16 at 01:30; Stop 09/12/16 at 01:31; Status DC Acetaminophen/ Hydrocodone Bitart (Lortab 5/325) 1 tab 1X ONCE PO ; Start 09/12 at 01:30; Stop 09/12/16 at 01:31; Status DC Albuterol Sulfate (Ventolin Neb Soln) 2.5 mg PRN Q4HRS PRN NEB SHORTNESS OF BREATH; Start 09/12/16 at 02:00; Stop 09/13/16 at 01:59; Status DC Acetaminophen/ Hydrocodone Bitart (Lortab 7.5/325) 1 tab PRN Q6HRS PRN PO MODERATE PAIN Last administered on 09/16/16 12:56; Start 09/12/16 at 03:45 Insulin Aspart (Novolog) 0-5 UNITS TIDWMEALS SQ Last administered on 09/16/16 08:51; Start 09/12/16 at 08:00; Stop 09/16/16 at 12:17; Status DC Dextrose 12.5 gm PRN Q15MIN PRN IV SEE COMMENTS; Start 09/12/16 at 03:45 Vancomycin HCl (Vanco Per Pharmacy) 1 each PRN DAILY PRN MC SEE COMMENTS Last administered on 09/17/16 14:38; Start 09/12/16 at 07:45 Albuterol/ Ipratropium (Duoneb) 3 ml RTQID NEB Last administered on 09/18/16 07:36; Start 09/12/16 at 08:00 Aspirin (Children'S Aspirin) 81 mg DAILY PO Last administered on 09/18/16 09: 25; Start 09/12/16 at 09:00 Bumetanide (Bumex) 1 mg NOON PO Last administered on 09/13/16 12:42; Start at 12:00; Stop 09/14/16 at 11:24; Status DC Diphenhydramine HCl (Benadryl) 25 mg HS PO Last administered on 09/17/16 21:03 ; Start 09/12/16 at 21:00 Acetaminophen/ Hydrocodone Bitart (Lortab 7.5/325) 1 tab PRN QHS PRN PO PAIN Last administered on 09/13/16 20:50; Start 09/12/16 at 07:45 Isosorbide Mononitrate (Imdur) 30 mg DAILY16 PO Last administered on 09/17/16 16:04; Start 09/12/16 at 16:00 Lisinopril (Prinivil) 10 mg DAILY PO ; Start 09/12/16 at 09:00; Stop 09/13/16 at 07:24; Status DC Sertraline HCl (Zoloft) 25 mg DAILY PO Last administered on 09/18/16 09:26; Start 09/12/16 at 09:00 Cyclobenzaprine HCl (Flexeril) 10 mg PRN TID PRN PO MUSCLE SPASMS; Start at 08:00 Multivitamins/ Calcium (Thera M Plus) 1 tab DAILY PO Last administered on 09:26; Start 09/12/16 at 09:00 Fish Oil (Fish Oil) 1,000 mg DAILY PO Last administered on 09/18/16 09:25; Start 09/12/16 at 09:00 Pantoprazole Sodium (Protonix) 40 mg DAILYAC PO Last administered on 09/18/16 09:24; Start 09/12/16 at 08:00 Atorvastatin Calcium 10 mg 10 mg QHS PO Last administered on 09/17/16 21:03; Start 09/12/16 at 21:00 Vancomycin HCl/ Sodium Chloride (Iv Sodium Chloride 0.9% 500ml Bag) 500 ml @ 250 mls/hr 1X ONCE IV Last administered on 09/12/16 08:19; Start 09/12/16 at 08:30; Stop 09/12/16 at 10:29; Status DC Furosemide (Lasix) 40 mg 1X ONCE IVP Last administered on 09/12/16 11:26; Start 09/12/16 at 11:30; Stop 09/12/16 at 11:31; Status DC Vancomycin HCl 1 each 1X ONCE MC ; Start 09/14/16 at 08:00; Stop 09/14/16 at 08 :01; Status DC Sodium Polystyrene Sulfonate (Kayexalate) 15 gm 1X ONCE PO Last administered on 09/13/16 07:59; Start 09/13/16 at 07:30; Stop 09/13/16 at 07:31; Status DC Furosemide (Lasix) 40 mg 1X ONCE IVP Last administered on 09/13/16 07:59; Start 09/13/16 at 07:30; Stop 09/13/16 at 07:31; Status DC Nystatin 1 yusuf 1 yusuf BID TP Last administered on 09/18/16 09:27; Start at 09:00 Vancomycin HCl/ Sodium Chloride (Iv Sodium Chloride 0.9% 250ml) 250 ml @ 167 mls/hr Q48H IV Last administered on 09/16/16 10:06; Start 09/14/16 at 09:30 Bumetanide (Bumex) 2 mg NOON PO Last administered on 09/16/16 12:25; Start at 12:00; Stop 09/16/16 at 15:44; Status DC Prednisone (Prednisone) 60 mg 1X ONCE PO Last administered on 09/15/16 10:06 ; Start 09/15/16 at 09:30; Stop 09/15/16 at 09:31; Status DC Bumetanide (Bumex) 2 mg 1X STAT IV Last administered on 09/15/16 09:37; Start 09/15/16 at 09:03; Stop 09/15/16 at 09:10; Status DC Furosemide (Lasix) 40 mg 1X ONCE IVP Last administered on 09/15/16 12:17; Start 09/15/16 at 12:00; Stop 09/15/16 at 12:01; Status DC Guaifenesin (Robitussin Dm) 10 ml PRN Q8HRS PRN PO COUGH; Start 09/15/16 at 15: 30; Stop 09/15/16 at 16:17; Status DC Guaifenesin (Robitussin Dm) 5 ml PRN Q8HRS PRN PO COUGH Last administered on 13:01; Start 09/15/16 at 16:30 Insulin Aspart (Novolog) 0-5 UNITS TIDWMEALHC SQ Last administered on 21:57; Start 09/16/16 at 12:30 Insulin Aspart Prota 70%/Aspart 30% (Novolog Mix 70-30) 10 units BIDWMEALS SQ Last administered on 09/17/16 09:10; Start 09/16/16 at 17:00 Acetaminophen/ Hydrocodone Bitart (Lortab 7.5/325) 2 tab PRN Q6HRS PRN PO PAIN Last administered on 09/16/16 20:31; Start 09/16/16 at 13:45 Furosemide (Lasix) 40 mg DAILY IVP Last administered on 09/18/16 09:24; Start 09/16/16 at 16:30 Vancomycin HCl 1 each 1X ONCE MC ; Start 09/18/16 at 09:00; Stop 09/18/16 at 09 :01; Status DC Polyethylene Glycol (miraLAX PACKET) 17 gm DAILY PO Last administered on 09:26; Start 09/18/16 at 09:00 Bisacodyl (Dulcolax Supp) 10 mg PRN DAILY PRN [place] CONSTIPATION Last administered on 09/18/16 09:27; Start 09/18/16 at 08:45 Active Scripts Active Sertraline Hcl 25 Mg Tablet 25 Mg PO DAILY Reported Bactrim 400-80 Mg Tablet (Sulfamethoxazole/Trimethoprim) 1 Each Tablet 1 Tab PO BID Bactrim 400-80 Mg Tablet (Sulfamethoxazole/Trimethoprim) 1 Each Tablet 1 Tab PO BID Bumetanide 1 Mg Tablet 1 Tab PO NOON Humulin 70-30 Vial (Hum Insulin Nph/Reg Insulin Hm) 100 Unit/1 Ml Vial 15 Unit SQ BIDAC Hydrocodone-Apap 7.5-325 (Hydrocodone Bit/Acetaminophen) 1 Each Tablet 1 Tab PO HS PRN Vitamin D2 (Ergocalciferol (Vitamin D2)) 50,000 Unit Capsule 50,000 Unit PO WEEKLY NEXT DOSE: PER USUAL TIME Prilosec (Omeprazole) 20 Mg Capsule.dr 1 Cap PO BID [place]-3 1,000 Mg Softgel ([place]-3 Fatty Acids/Fish Oil) 1 Each Capsule 1 Each PO DAILY Centrum Silver Tablet (Multivits-Min/Fa/Lycopene/Lut) 1 Each Tablet 1 Each PO DAILY Cyclobenzaprine Hcl 5 Mg Tablet 10 Mg PO TID PRN NEXT DOSE: WHEN NEEDED Benadryl (Diphenhydramine Hcl) 25 Mg Capsule 25 Mg PO HS Pravachol (Pravastatin Sodium) 40 Mg Tablet 40 Mg PO DAILY Potassium Chloride 10 Meq Capsule.er 10 Meq PO DAILY Lisinopril 10 Mg Tablet 10 Mg PO DAILY Imdur (Isosorbide Mononitrate) 30 Mg Tab.er.24h 30 Mg PO DAILY16 Children's Aspirin (Aspirin) 81 Mg Tab.chew 81 Mg PO DAILY Vitals/I & O Vital Sign - Last 24 Hours 09/17/16 09/17/16 09/17/16 09/17/16 11:15 11:35 15:20 15:43 Temp 96.9 96.4 96.9 96.4 Pulse 73 73 Resp 20 20 B/P 134/43 121/46 Pulse Ox 95 95 95 95 O2 Delivery Nasal Cannula Nasal Cannula Nasal Cannula Nasal Cannula O2 Flow Rate 3.0 3.0 3.0 3.0 09/17/16 09/17/16 09/17/16 09/17/16 16:04 19:00 19:54 21:57 Temp 97.9 97.9 Pulse 73 74 Resp 18 B/P 121/46 132/44 Pulse Ox 95 97 O2 Delivery Nasal Cannula Nasal Cannula Nasal Cannula O2 Flow Rate 3.0 3.0 3.0 09/17/16 09/18/16 09/18/16 09/18/16 23:00 03:00 07:00 07:37 Temp 96.8 97.2 97.7 96.8 97.2 97.7 Pulse 75 71 77 Resp 18 18 18 B/P 141/47 105/32 119/40 Pulse Ox 97 97 96 O2 Delivery Nasal Cannula Nasal Cannula Nasal Cannula Nasal Cannula O2 Flow Rate 3.0 3.0 3.0 3.0 Intake and Output 09/17/16 09/17/16 09/18/16 15:00 23:00 07:00 Intake Total 280 ml 0 ml Output Total 950 ml 850 ml Balance 280 ml -950 ml -850 ml CELSA JAVIER MD Sep 18, 2016 09:46
[2016-09-18] MEDS: INSULN ASP PRT/INSULIN ASPART 300 UNITS/3 ML INSULN.PEN. SQ SCH ×2 (09:49→17:37)
[2016-09-18] MEDS: VANCOMYCIN PER PHARMACY MC PRN (09:57)
[2016-09-18] MEDS: VANCOMYCIN 1.25 GM in IV NORMAL SALINE 250ML 250 ML IV SCH (10:17)
[2016-09-18 11:47] VITALS: BP 119/39
--- NOTE | 2016-09-18 12:45 | PDOC ---
SUBJECTIVE ROS F/up GUME/ CKD III Doign much better today CVS: no Orthopnea, no CP RESP: no SOB, n RUTLEDGE GI: lance Nausea, no Vomiting; was constipatted and now feels better after BM : no Dysuria, no Urgency OBJECTIVE Vital Signs Vital Signs Date Time Temp Pulse Resp B/P Pulse Ox O2 Delivery O2 Flow Rate FiO2 09/18/16 11:47 98.2 76 18 119/39 91 Nasal Cannula 3.0 98.2 I & 0 Intake and Output 09/18/16 07:00 Intake Total 280 ml Output Total 1800 ml Balance -1520 ml Intake Oral 280 ml Output Urine Total 1800 ml PHYSICAL EXAM Physical Exam GEN: Awake, Oriented x 3, In no distress EYES: Vision Unchanged, Conjunctiva Normal EN: No EN Drainage, Mucous Membranes moist NECK: no JVD, min JVP, Supple, no Thyromegaly CVS: S1S2, ? Murmur, No Gallop, No Rub,no Edema RESP: rare Rales, no Rhonchi,no Acc. Muscle Use GI: BS + ve, NO Bruit, Non Tender, Non Distended : no CVA tenderness, no Suprapubic Tenderness DIAGNOSIS/ASSESSMENT Assessment & Plan GUME almost resolved ; better now and anticipate it will stay OK off of Bactrim. Current fluid and E-lyte status does not necessitate emergent need for dialysis. CKD III - back to baseline creat of 1.3 ^K - better now and anticipate it will stay OK off of Bactrim HTN: Current BP meds as reviewed. See orders for changes. CHF on CXR - clinically appears compensated; Not sure if some of this represents her Lung Ca Discussed Plan of Care with family at bedside Problems: COMMENT/RELEVANT DATA Meds Current Medications Medications (Trade) Dose Ordered Sig/Leonard Start Time Stop Time Status Last Admin Dose Admin Acetaminophen/ Hydrocodone Bitart (Lortab 5/325) 1 tab 1X ONCE 09/12/16 01:30 09/12/16 01:31 DC Acetaminophen/ Hydrocodone Bitart (Lortab 7.5/325) 2 tab PRN Q6HRS PRN 09/16/16 13:45 09/16/16 20:31 2 TAB Albuterol Sulfate (Ventolin Neb Soln) 2.5 mg PRN Q4HRS PRN 09/12/16 02:00 09/13/16 01:59 DC Albuterol/ Ipratropium (Duoneb) 3 ml RTQID 09/12/16 08:00 09/18/16 11:00 3 ML Albuterol/ Ipratropium 3 ml 3 ml 1X ONCE 09/11/16 22:45 09/11/16 22:46 DC 09/11/16 22:40 3 ML Aspirin (Children'S Aspirin) 81 mg DAILY 09/12/16 09:00 09/18/16 09:25 81 MG Atorvastatin Calcium 10 mg 10 mg QHS 09/12/16 21:00 09/17/16 21:03 10 MG Bisacodyl (Dulcolax Supp) 10 mg PRN DAILY PRN 09/18/16 08:45 09/18/16 09:27 10 MG Bumetanide (Bumex) 2 mg 1X STAT 09/15/16 09:03 09/15/16 09:10 DC 09/15/16 09:37 2 MG Cyclobenzaprine HCl (Flexeril) 10 mg PRN TID PRN 09/12/16 08:00 Dextrose 12.5 gm PRN Q15MIN PRN 09/12/16 03:45 Diphenhydramine HCl (Benadryl) 25 mg HS 09/12/16 21:00 09/17/16 21:03 25 MG Fish Oil (Fish Oil) 1,000 mg DAILY 09/12/16 09:00 09/18/16 09:25 1,000 MG Furosemide (Lasix) 40 mg DAILY 09/16/16 16:30 09/18/16 09:24 40 MG Guaifenesin (Robitussin Dm) 5 ml PRN Q8HRS PRN 09/15/16 16:30 09/17/16 13:01 5 ML Insulin Aspart (Novolog) 0-5 UNITS TIDWMEALHC 09/16/16 12:30 09/16/16 21:57 2 UNITS Insulin Aspart Prota 70%/Aspart 30% (Novolog Mix 70-30) 10 units BIDWMEALS 09/16/16 17:00 09/18/16 09:49 10 UNITS Isosorbide Mononitrate (Imdur) 30 mg DAILY16 09/12/16 16:00 09/17/16 16:04 30 MG Levofloxacin/ Dextrose (LEVAQUIN 750mg PREMIX) 150 ml @ 100 mls/hr 1X ONCE 09/12/16 01:00 09/12/16 02:29 DC 09/12/16 04:27 100 MLS/HR Lisinopril (Prinivil) 10 mg DAILY 09/12/16 09:00 09/13/16 07:24 DC Multivitamins/ Calcium (Thera M Plus) 1 tab DAILY 09/12/16 09:00 09/18/16 09:26 1 TAB Nystatin 1 yusuf 1 yusuf BID 09/14/16 09:00 09/18/16 09:27 1 YUSUF Pantoprazole Sodium (Protonix) 40 mg DAILYAC 09/12/16 08:00 09/18/16 09:24 40 MG Polyethylene Glycol (miraLAX PACKET) 17 gm DAILY 09/18/16 09:00 09/18/16 09:26 17 GM Prednisone (Prednisone) 60 mg 1X ONCE 09/15/16 09:30 09/15/16 09:31 DC 09/15/16 10:06 60 MG Sertraline HCl (Zoloft) 25 mg DAILY 09/12/16 09:00 09/18/16 09:26 25 MG Sodium Polystyrene Sulfonate (Kayexalate) 15 gm 1X ONCE 09/13/16 07:30 09/13/16 07:31 DC 09/13/16 07:59 15 GM Vancomycin HCl 1 each 1X ONCE 09/18/16 09:00 09/18/16 09:01 DC Vancomycin HCl (Vanco Per Pharmacy) 1 each PRN DAILY PRN 09/12/16 07:45 09/18/16 09:57 1 EACH Vancomycin HCl/ Sodium Chloride (Iv Sodium Chloride 0.9% 250ml) 250 ml @ 167 mls/hr Q48H 09/14/16 09:30 09/18/16 10:17 167 MLS/HR Vancomycin HCl/ Sodium Chloride (Iv Sodium Chloride 0.9% 500ml Bag) 500 ml @ 250 mls/hr 1X ONCE 09/12/16 08:30 09/12/16 10:29 DC 09/12/16 08:19 250 MLS/HR Lab Laboratory Tests Test 09/17/16 16:40 09/17/16 20:42 09/18/16 07:32 09/18/16 08:55 Glucose (Fingerstick) 104mg/dL (70-99) 169mg/dL (70-99) 159mg/dL (70-99) Sodium Level 143mmol/L (136-145) Potassium Level 4.8mmol/L (3.5-5.1) Chloride Level 103mmol/L (98-107) Carbon Dioxide Level 32mmol/L (21-32) Anion Gap 8 (6-14) Blood Urea Nitrogen 44mg/dL (7-20) Creatinine 1.3mg/dL (0.6-1.0) Estimated GFR (Cockcroft-Gault) 38.7 Glucose Level 203mg/dL (70-99) Calcium Level 8.9mg/dL (8.5-10.1) Vancomycin Level Trough 16.2mcg/mL (10.0-20.0) Vancomycin Last Dose Date 09/16/16 Vancomycin Last Dose Time 1000 Test 09/18/16 12:10 Glucose (Fingerstick) 146mg/dL (70-99) COMPA GANDHI MD Sep 18, 2016 12:45
--- NOTE | 2016-09-18 12:47 | PDOC ---
PULMONARY PROGRESS NOTES Subjective pt in pain at times more soa Vitals Vital Signs Date Time Temp Pulse Resp B/P Pulse Ox O2 Delivery O2 Flow Rate FiO2 09/18/16 11:47 98.2 76 18 119/39 91 Nasal Cannula 3.0 98.2 General: Alert, No acute distress Lungs: Other (resolved wheezing) Cardiovascular: S1, S2 Abdomen: Soft, Non-tender Neuro Exam: Alert Extremities: No Edema, Other Skin: Warm Labs Laboratory Tests Test 09/16/16 16:36 09/16/16 19:33 09/17/16 08:09 09/17/16 11:16 Glucose (Fingerstick) 261mg/dL (70-99) 175mg/dL (70-99) 103mg/dL (70-99) 114mg/dL (70-99) Test 09/17/16 16:40 09/17/16 20:42 09/18/16 07:32 09/18/16 08:55 Glucose (Fingerstick) 104mg/dL (70-99) 169mg/dL (70-99) 159mg/dL (70-99) Sodium Level 143mmol/L (136-145) Potassium Level 4.8mmol/L (3.5-5.1) Chloride Level 103mmol/L (98-107) Carbon Dioxide Level 32mmol/L (21-32) Anion Gap 8 (6-14) Blood Urea Nitrogen 44mg/dL (7-20) Creatinine 1.3mg/dL (0.6-1.0) Estimated GFR (Cockcroft-Gault) 38.7 Glucose Level 203mg/dL (70-99) Calcium Level 8.9mg/dL (8.5-10.1) Vancomycin Level Trough 16.2mcg/mL (10.0-20.0) Vancomycin Last Dose Date 09/16/16 Vancomycin Last Dose Time 1000 Test 09/18/16 12:10 Glucose (Fingerstick) 146mg/dL (70-99) Laboratory Tests Test 09/17/16 16:40 09/17/16 20:42 09/18/16 07:32 09/18/16 08:55 Glucose (Fingerstick) 104mg/dL (70-99) 169mg/dL (70-99) 159mg/dL (70-99) Sodium Level 143mmol/L (136-145) Potassium Level 4.8mmol/L (3.5-5.1) Chloride Level 103mmol/L (98-107) Carbon Dioxide Level 32mmol/L (21-32) Anion Gap 8 (6-14) Blood Urea Nitrogen 44mg/dL (7-20) Creatinine 1.3mg/dL (0.6-1.0) Estimated GFR (Cockcroft-Gault) 38.7 Glucose Level 203mg/dL (70-99) Calcium Level 8.9mg/dL (8.5-10.1) Vancomycin Level Trough 16.2mcg/mL (10.0-20.0) Vancomycin Last Dose Date 09/16/16 Vancomycin Last Dose Time 1000 Test 09/18/16 12:10 Glucose (Fingerstick) 146mg/dL (70-99) Medications Active Scripts Medications Dose Route/Sig Days Date Category Dose Instructions Bactrim 400-80 Mg Tablet (Sulfamethoxazole/Trimethoprim) 1 Each Tablet 1 Tab PO BID 09/12/16 Reported Bactrim 400-80 Mg Tablet (Sulfamethoxazole/Trimethoprim) 1 Each Tablet 1 Tab PO BID 09/12/16 Reported Bumetanide 1 Mg Tablet 1 Tab PO NOON 02/18/16 Reported Humulin 70-30 Vial (Hum Insulin Nph/Reg Insulin Hm) 100 Unit/1 Ml Vial 15 Unit SQ BIDAC 02/18/16 Reported Sertraline Hcl 25 Mg Tablet 25 Mg PO DAILY 12/21/15 Rx Hydrocodone-Apap 7.5-325 (Hydrocodone Bit/Acetaminophen) 1 Each Tablet 1 Tab PO HS PRN 08/10/15 Reported Vitamin D2 (Ergocalciferol (Vitamin D2)) 50,000 Unit Capsule 50,000 Unit PO WEEKLY 08/10/15 Reported NEXT DOSE: PER USUAL TIME Prilosec (Omeprazole) 20 Mg Capsule.dr 1 Cap PO BID 08/10/15 Reported [place]-3 1,000 Mg Softgel ([place]-3 Fatty Acids/Fish Oil) 1 Each Capsule 1 Each PO DAILY 08/10/15 Reported Centrum Silver Tablet (Multivits-Min/Fa/Lycopene/Lut) 1 Each Tablet 1 Each PO DAILY 08/10/15 Reported Cyclobenzaprine Hcl 5 Mg Tablet 10 Mg PO TID PRN 04/15/14 Reported NEXT DOSE: WHEN NEEDED Benadryl (Diphenhydramine Hcl) 25 Mg Capsule 25 Mg PO HS 01/25/14 Reported Pravachol (Pravastatin Sodium) 40 Mg Tablet 40 Mg PO DAILY 01/25/14 Reported Potassium Chloride 10 Meq Capsule.er 10 Meq PO DAILY 01/24/14 Reported Lisinopril 10 Mg Tablet 10 Mg PO DAILY 01/24/14 Reported Imdur (Isosorbide Mononitrate) 30 Mg Tab.er.24h 30 Mg PO DAILY16 01/24/14 Reported Children's Aspirin (Aspirin) 81 Mg Tab.chew 81 Mg PO DAILY 01/24/14 Reported Comments CXR 09/14 Worsening CHF Impression . 1. Dyspnea with acute hypoxic respiratory failure with bilateral interstitial infiltrates. this is secondary to [id number] diastolic heart failure/ MR. noncontrast CT chest with mild interstitial infiltrates / basal effusions related to CHF 2. History of stage IV lung cancer with metastasis to the abdominal wall. Status post radiation. 3. History of tobacco use, suspect underlying chronic obstructive pulmonary disease. 4. Renal insufficiency. 5. Increased troponin levels. 6. 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 repeat cxr pain management 1. Would continue with present oxygen. 2. Diuresis. 3. noncontrast CT chest reviewed. increase mass size RUL. follow oncology recommendations, no further chemo 4. echocardiogram reviewed. severe mitral calcification. cardiology to address severity of mitral valve / not a candidate for surgery. ? KAR 5. Bronchodilators. 6. Treatment of cellulitis per primary care. 7. Oncology to f/u on lung cancer. EMMA ORTIZ MD Sep 18, 2016 12:47
--- NOTE | 2016-09-18 15:07 | RAD ---
Portable chest, 09/18/2016, 1:55 PM: History: Respiratory failure Comparison is made to the study of earlier the same day. A left-sided transvenous pacemaker remains in place. A fracture of one of its leads is again noted. There is been a previous median sternotomy. The heart is enlarged. The pulmonary vascularity remains congested. There are ongoing moderate sized bilateral pleural effusions, unchanged. There is underlying bibasilar atelectasis. No new abnormality is seen. IMPRESSION: No significant change since earlier in the day.
[2016-09-18 15:09] VITALS: BP 124/29
[2016-09-18] MEDS: ISOSORBIDE MONONITRATE ER 30 MG TAB.ER.24H PO SCH (16:16)
[2016-09-18] MEDS: HYDROCODONE/APAP 7.5/325MG TABLET. PO PRN ×2 (16:19→22:10)
--- NOTE | 2016-09-18 16:55 | PDOC ---
PROGRESS NOTES Subjective Subjective Patient still weak discussed transfer to SNU. family and patient now agree. C/O Constipation. Objective Objective Vital Signs Date Time Temp Pulse Resp B/P Pulse Ox O2 Delivery O2 Flow Rate FiO2 09/18/16 16:19 20 95 Nasal Cannula 2.0 09/18/16 16:16 74 124/29 09/18/16 15:09 97.9 97.9 Intake and Output 09/18/16 07:00 Intake Total 280 ml Output Total 1800 ml Balance -1520 ml Intake Oral 280 ml Output Urine Total 1800 ml Physical Exam Abdomen: Other (Constipation, mild tender + BS) Heart: Regular rate Extremities: No edema General: Alert Lungs: Other (Scattered wheezes) Assessment Assessment Problems Medical Problems: (1) Acute and chronic respiratory failure Status: Acute (2) Acute on chronic renal failure Status: Acute (3) Congestive heart failure Status: Acute (4) Hyperkalemia Status: Acute (5) Hypoglycemia associated with diabetes Status: Acute 1. Acute on chronic respiratory failure 2. Acute on chronic diastolic congestive heart failure with severe pulmonary hypertension: 3. Acute renal failure on chronic kidney disease: 4. Cellulitis, lower extremities: Appears to be improving. 5. Lung CA with mets stable and asymptomatic not a candidate for chemo and no palliative treatment needed at this time 6. Diabetes mellitus type 2: Stable. 7. Possible pacer lead disruption with subtle lucency noted on chest x-ray: Per cardiology 8. AECOPD 9. Valvular heart Dz Plan Plan of Care Continue [facility] SNU when stable Continue PT/OT Dulcolax supp Comment Review of Relevant I have reviewed the following items edna (where applicable) has been applied. Labs Laboratory Tests Test 09/16/16 19:33 09/17/16 08:09 09/17/16 11:16 09/17/16 16:40 Glucose (Fingerstick) 175mg/dL (70-99) 103mg/dL (70-99) 114mg/dL (70-99) 104mg/dL (70-99) Test 09/17/16 20:42 09/18/16 07:32 09/18/16 08:55 09/18/16 12:10 Glucose (Fingerstick) 169mg/dL (70-99) 159mg/dL (70-99) 146mg/dL (70-99) Sodium Level 143mmol/L (136-145) Potassium Level 4.8mmol/L (3.5-5.1) Chloride Level 103mmol/L (98-107) Carbon Dioxide Level 32mmol/L (21-32) Anion Gap 8 (6-14) Blood Urea Nitrogen 44mg/dL (7-20) Creatinine 1.3mg/dL (0.6-1.0) Estimated GFR (Cockcroft-Gault) 38.7 Glucose Level 203mg/dL (70-99) Calcium Level 8.9mg/dL (8.5-10.1) Vancomycin Level Trough 16.2mcg/mL (10.0-20.0) Vancomycin Last Dose Date 09/16/16 Vancomycin Last Dose Time 1000 Laboratory Tests Test 09/17/16 16:40 09/17/16 20:42 09/18/16 07:32 09/18/16 08:55 Glucose (Fingerstick) 104mg/dL (70-99) 169mg/dL (70-99) 159mg/dL (70-99) Sodium Level 143mmol/L (136-145) Potassium Level 4.8mmol/L (3.5-5.1) Chloride Level 103mmol/L (98-107) Carbon Dioxide Level 32mmol/L (21-32) Anion Gap 8 (6-14) Blood Urea Nitrogen 44mg/dL (7-20) Creatinine 1.3mg/dL (0.6-1.0) Estimated GFR (Cockcroft-Gault) 38.7 Glucose Level 203mg/dL (70-99) Calcium Level 8.9mg/dL (8.5-10.1) Vancomycin Level Trough 16.2mcg/mL (10.0-20.0) Vancomycin Last Dose Date 09/16/16 Vancomycin Last Dose Time 1000 Test 09/18/16 12:10 Glucose (Fingerstick) 146mg/dL (70-99) Microbiology 09/12/16 Blood Culture - Final, Complete NO GROWTH AFTER 5 DAYS 09/12/16 Urine Culture - Final, Complete 09/12/16 Urine Culture Result 1 (MAMI) - Final, Complete Medications Current Medications Albuterol/ Ipratropium 3 ml 3 ml 1X ONCE NEB Last administered on 09/11/16t 22 :40; Start 09/11/16 at 22:45; Stop 09/11/16 at 22:46; Status DC Levofloxacin/ Dextrose (LEVAQUIN 750mg PREMIX) 150 ml @ 100 mls/hr 1X ONCE IV Last administered on 09/12/16 04:27; Start 09/12/16 at 01:00; Stop 09/12/16 at 02:29; Status DC Albuterol/ Ipratropium (Duoneb) 3 ml PRN Q4HRS PRN NEB SOA; Start 09/12/16 at 00:45; Stop 09/12/16 at 06:00; Status DC Albuterol/ Ipratropium (Duoneb) 3 ml 1X ONCE NEB Last administered on 01:49; Start 09/12/16 at 01:30; Stop 09/12/16 at 01:31; Status DC Acetaminophen/ Hydrocodone Bitart (Lortab 5/325) 1 tab 1X ONCE PO ; Start 09/12 at 01:30; Stop 09/12/16 at 01:31; Status DC Albuterol Sulfate (Ventolin Neb Soln) 2.5 mg PRN Q4HRS PRN NEB SHORTNESS OF BREATH; Start 09/12/16 at 02:00; Stop 09/13/16 at 01:59; Status DC Acetaminophen/ Hydrocodone Bitart (Lortab 7.5/325) 1 tab PRN Q6HRS PRN PO MODERATE PAIN Last administered on 09/18/16 16:19; Start 09/12/16 at 03:45 Insulin Aspart (Novolog) 0-5 UNITS TIDWMEALS SQ Last administered on 09/16/16 08:51; Start 09/12/16 at 08:00; Stop 09/16/16 at 12:17; Status DC Dextrose 12.5 gm PRN Q15MIN PRN IV SEE COMMENTS; Start 09/12/16 at 03:45 Vancomycin HCl (Vanco Per Pharmacy) 1 each PRN DAILY PRN MC SEE COMMENTS Last administered on 09/18/16 09:57; Start 09/12/16 at 07:45 Albuterol/ Ipratropium (Duoneb) 3 ml RTQID NEB Last administered on 09/18/16 15:13; Start 09/12/16 at 08:00 Aspirin (Children'S Aspirin) 81 mg DAILY PO Last administered on 09/18/16 09: 25; Start 09/12/16 at 09:00 Bumetanide (Bumex) 1 mg NOON PO Last administered on 09/13/16 12:42; Start at 12:00; Stop 09/14/16 at 11:24; Status DC Diphenhydramine HCl (Benadryl) 25 mg HS PO Last administered on 09/17/16 21:03 ; Start 09/12/16 at 21:00 Acetaminophen/ Hydrocodone Bitart (Lortab 7.5/325) 1 tab PRN QHS PRN PO PAIN Last administered on 09/13/16 20:50; Start 09/12/16 at 07:45 Isosorbide Mononitrate (Imdur) 30 mg DAILY16 PO Last administered on 09/18/16 16:16; Start 09/12/16 at 16:00 Lisinopril (Prinivil) 10 mg DAILY PO ; Start 09/12/16 at 09:00; Stop 09/13/16 at 07:24; Status DC Sertraline HCl (Zoloft) 25 mg DAILY PO Last administered on 09/18/16 09:26; Start 09/12/16 at 09:00 Cyclobenzaprine HCl (Flexeril) 10 mg PRN TID PRN PO MUSCLE SPASMS; Start at 08:00 Multivitamins/ Calcium (Thera M Plus) 1 tab DAILY PO Last administered on 09:26; Start 09/12/16 at 09:00 Fish Oil (Fish Oil) 1,000 mg DAILY PO Last administered on 09/18/16 09:25; Start 09/12/16 at 09:00 Pantoprazole Sodium (Protonix) 40 mg DAILYAC PO Last administered on 09/18/16 09:24; Start 09/12/16 at 08:00 Atorvastatin Calcium 10 mg 10 mg QHS PO Last administered on 09/17/16 21:03; Start 09/12/16 at 21:00 Vancomycin HCl/ Sodium Chloride (Iv Sodium Chloride 0.9% 500ml Bag) 500 ml @ 250 mls/hr 1X ONCE IV Last administered on 09/12/16 08:19; Start 09/12/16 at 08:30; Stop 09/12/16 at 10:29; Status DC Furosemide (Lasix) 40 mg 1X ONCE IVP Last administered on 09/12/16 11:26; Start 09/12/16 at 11:30; Stop 09/12/16 at 11:31; Status DC Vancomycin HCl 1 each 1X ONCE MC ; Start 09/14/16 at 08:00; Stop 09/14/16 at 08 :01; Status DC Sodium Polystyrene Sulfonate (Kayexalate) 15 gm 1X ONCE PO Last administered on 09/13/16 07:59; Start 09/13/16 at 07:30; Stop 09/13/16 at 07:31; Status DC Furosemide (Lasix) 40 mg 1X ONCE IVP Last administered on 09/13/16 07:59; Start 09/13/16 at 07:30; Stop 09/13/16 at 07:31; Status DC Nystatin 1 yusuf 1 yusuf BID TP Last administered on 09/18/16 09:27; Start at 09:00 Vancomycin HCl/ Sodium Chloride (Iv Sodium Chloride 0.9% 250ml) 250 ml @ 167 mls/hr Q48H IV Last administered on 09/18/16 10:17; Start 09/14/16 at 09:30 Bumetanide (Bumex) 2 mg NOON PO Last administered on 09/16/16 12:25; Start at 12:00; Stop 09/16/16 at 15:44; Status DC Prednisone (Prednisone) 60 mg 1X ONCE PO Last administered on 09/15/16 10:06 ; Start 09/15/16 at 09:30; Stop 09/15/16 at 09:31; Status DC Bumetanide (Bumex) 2 mg 1X STAT IV Last administered on 09/15/16 09:37; Start 09/15/16 at 09:03; Stop 09/15/16 at 09:10; Status DC Furosemide (Lasix) 40 mg 1X ONCE IVP Last administered on 09/15/16 12:17; Start 09/15/16 at 12:00; Stop 09/15/16 at 12:01; Status DC Guaifenesin (Robitussin Dm) 10 ml PRN Q8HRS PRN PO COUGH; Start 09/15/16 at 15: 30; Stop 09/15/16 at 16:17; Status DC Guaifenesin (Robitussin Dm) 5 ml PRN Q8HRS PRN PO COUGH Last administered on 13:01; Start 09/15/16 at 16:30 Insulin Aspart (Novolog) 0-5 UNITS TIDWMEALHC SQ Last administered on 21:57; Start 09/16/16 at 12:30 Insulin Aspart Prota 70%/Aspart 30% (Novolog Mix 70-30) 10 units BIDWMEALS SQ Last administered on 09/18/16 09:49; Start 09/16/16 at 17:00 Acetaminophen/ Hydrocodone Bitart (Lortab 7.5/325) 2 tab PRN Q6HRS PRN PO PAIN Last administered on 09/16/16 20:31; Start 09/16/16 at 13:45 Furosemide (Lasix) 40 mg DAILY IVP Last administered on 09/18/16 09:24; Start 09/16/16 at 16:30 Vancomycin HCl 1 each 1X ONCE MC ; Start 09/18/16 at 09:00; Stop 09/18/16 at 09 :01; Status DC Polyethylene Glycol (miraLAX PACKET) 17 gm DAILY PO Last administered on 09:26; Start 09/18/16 at 09:00 Bisacodyl (Dulcolax Supp) 10 mg PRN DAILY PRN MO CONSTIPATION Last administered on 09/18/16 09:27; Start 09/18/16 at 08:45 Active Scripts Active Sertraline Hcl 25 Mg Tablet 25 Mg PO DAILY Reported Bactrim 400-80 Mg Tablet (Sulfamethoxazole/Trimethoprim) 1 Each Tablet 1 Tab PO BID Bactrim 400-80 Mg Tablet (Sulfamethoxazole/Trimethoprim) 1 Each Tablet 1 Tab PO BID Bumetanide 1 Mg Tablet 1 Tab PO NOON Humulin 70-30 Vial (Hum Insulin Nph/Reg Insulin Hm) 100 Unit/1 Ml Vial 15 Unit SQ BIDAC Hydrocodone-Apap 7.5-325 (Hydrocodone Bit/Acetaminophen) 1 Each Tablet 1 Tab PO HS PRN Vitamin D2 (Ergocalciferol (Vitamin D2)) 50,000 Unit Capsule 50,000 Unit PO WEEKLY NEXT DOSE: PER USUAL TIME Prilosec (Omeprazole) 20 Mg Capsule.dr 1 Cap PO BID [place]-3 1,000 Mg Softgel ([place]-3 Fatty Acids/Fish Oil) 1 Each Capsule 1 Each PO DAILY Centrum Silver Tablet (Multivits-Min/Fa/Lycopene/Lut) 1 Each Tablet 1 Each PO DAILY Cyclobenzaprine Hcl 5 Mg Tablet 10 Mg PO TID PRN NEXT DOSE: WHEN NEEDED Benadryl (Diphenhydramine Hcl) 25 Mg Capsule 25 Mg PO HS Pravachol (Pravastatin Sodium) 40 Mg Tablet 40 Mg PO DAILY Potassium Chloride 10 Meq Capsule.er 10 Meq PO DAILY Lisinopril 10 Mg Tablet 10 Mg PO DAILY Imdur (Isosorbide Mononitrate) 30 Mg Tab.er.24h 30 Mg PO DAILY16 Children's Aspirin (Aspirin) 81 Mg Tab.chew 81 Mg PO DAILY Vitals/I & O Vital Sign - Last 24 Hours 09/17/16 09/17/16 09/17/16 09/17/16 19:00 19:54 21:57 23:00 Temp 97.9 96.8 97.9 96.8 Pulse 74 75 Resp 18 18 B/P 132/44 141/47 Pulse Ox 95 97 97 O2 Delivery Nasal Cannula Nasal Cannula Nasal Cannula Nasal Cannula O2 Flow Rate 3.0 3.0 3.0 3.0 09/18/16 09/18/16 09/18/16 09/18/16 03:00 07:00 07:37 11:02 Temp 97.2 97.7 97.2 97.7 Pulse 71 77 Resp 18 18 B/P 105/32 119/40 Pulse Ox 97 96 O2 Delivery Nasal Cannula Nasal Cannula Nasal Cannula Nasal Cannula O2 Flow Rate 3.0 3.0 3.0 3.0 09/18/16 09/18/16 09/18/16 09/18/16 11:47 15:09 15:13 16:16 Temp 98.2 97.9 98.2 97.9 Pulse 76 74 74 Resp 18 18 B/P 119/39 124/29 124/29 Pulse Ox 91 93 O2 Delivery Nasal Cannula Nasal Cannula Nasal Cannula O2 Flow Rate 3.0 3.0 3.0 09/18/16 16:19 Resp 20 Pulse Ox 95 O2 Delivery Nasal Cannula O2 Flow Rate 2.0 Intake and Output 09/17/16 09/17/16 09/18/16 15:00 23:00 07:00 Intake Total 280 ml 0 ml Output Total 950 ml 850 ml Balance 280 ml -950 ml -850 ml JAOQUIM JIMENEZ MD Sep 18, 2016 16:55
[2016-09-18 19:00] VITALS: BP 116/50
[2016-09-18] MEDS: DIPHENHYDRAMINE HCL 25 MG CAPSULE PO SCH (22:09)
[2016-09-18] MEDS: ATORVASTATIN CALCIUM 10 MG TABLET. PO SCH (22:09)
[2016-09-18 23:00] VITALS: BP 121/49
[2016-09-19 03:11] VITALS: BP 116/47
[2016-09-19 07:30] VITALS: BP 141/53
[2016-09-19] MEDS: IPRATRPIUM/ALBUTEROL 0.5/2.5MG 3 ML NEBU. NEB SCH ×2 (07:34→12:00)
[2016-09-19] MEDS: FUROSEMIDE 40 MG/4 ML VIAL IVP SCH (08:33)
[2016-09-19] MEDS: POLYETHYLENE GLYCOL 3350 17 GM PACKET. PO SCH (08:33)
[2016-09-19] MEDS: OMEGA-3 FATTY ACIDS/FISH OIL 1,000 MG CAPSULE. PO SCH (08:33)
[2016-09-19] MEDS: NYSTATIN TOPICAL POWDER 15GM BOTTLE. TP SCH (08:33)
[2016-09-19] MEDS: ASPIRIN 81 MG TAB.CHEW PO SCH (08:33)
[2016-09-19] MEDS: SERTRALINE 25 MG TABLET. PO SCH (08:33)
[2016-09-19] MEDS: MULTIVITAMIN with MINERAL TABLET. PO SCH (08:33)
[2016-09-19] MEDS: PANTOPRAZOLE 40 MG TABLET. PO SCH (08:33)
--- NOTE | 2016-09-19 08:44 | PDOC ---
PULMONARY PROGRESS NOTES Subjective pt in pain at times more soa Vitals Vital Signs Date Time Temp Pulse Resp B/P Pulse Ox O2 Delivery O2 Flow Rate FiO2 09/19/16 07:37 95 Nasal Cannula 2.0 09/19/16 07:30 98.0 75 18 141/53 98.0 General: Alert, No acute distress Lungs: Other (resolved wheezing) Cardiovascular: S1, S2 Abdomen: Soft, Non-tender Neuro Exam: Alert Extremities: No Edema, Other Skin: Warm Labs Laboratory Tests Test 09/17/16 11:16 09/17/16 16:40 09/17/16 20:42 09/18/16 07:32 Glucose (Fingerstick) 114mg/dL (70-99) 104mg/dL (70-99) 169mg/dL (70-99) 159mg/dL (70-99) Test 09/18/16 08:55 09/18/16 12:10 09/18/16 17:14 09/18/16 20:14 Sodium Level 143mmol/L (136-145) Potassium Level 4.8mmol/L (3.5-5.1) Chloride Level 103mmol/L (98-107) Carbon Dioxide Level 32mmol/L (21-32) Anion Gap 8 (6-14) Blood Urea Nitrogen 44mg/dL (7-20) Creatinine 1.3mg/dL (0.6-1.0) Estimated GFR (Cockcroft-Gault) 38.7 Glucose Level 203mg/dL (70-99) Calcium Level 8.9mg/dL (8.5-10.1) Vancomycin Level Trough 16.2mcg/mL (10.0-20.0) Vancomycin Last Dose Date 09/16/16 Vancomycin Last Dose Time 1000 Glucose (Fingerstick) 146mg/dL (70-99) 195mg/dL (70-99) 150mg/dL (70-99) Test 09/19/16 07:55 Glucose (Fingerstick) 266mg/dL (70-99) Laboratory Tests Test 09/18/16 08:55 09/18/16 12:10 09/18/16 17:14 09/18/16 20:14 Sodium Level 143mmol/L (136-145) Potassium Level 4.8mmol/L (3.5-5.1) Chloride Level 103mmol/L (98-107) Carbon Dioxide Level 32mmol/L (21-32) Anion Gap 8 (6-14) Blood Urea Nitrogen 44mg/dL (7-20) Creatinine 1.3mg/dL (0.6-1.0) Estimated GFR (Cockcroft-Gault) 38.7 Glucose Level 203mg/dL (70-99) Calcium Level 8.9mg/dL (8.5-10.1) Vancomycin Level Trough 16.2mcg/mL (10.0-20.0) Vancomycin Last Dose Date 09/16/16 Vancomycin Last Dose Time 1000 Glucose (Fingerstick) 146mg/dL (70-99) 195mg/dL (70-99) 150mg/dL (70-99) Test 09/19/16 07:55 Glucose (Fingerstick) 266mg/dL (70-99) Medications Active Scripts Medications Dose Route/Sig Days Date Category Dose Instructions Bactrim 400-80 Mg Tablet (Sulfamethoxazole/Trimethoprim) 1 Each Tablet 1 Tab PO BID 09/12/16 Reported Bactrim 400-80 Mg Tablet (Sulfamethoxazole/Trimethoprim) 1 Each Tablet 1 Tab PO BID 09/12/16 Reported Bumetanide 1 Mg Tablet 1 Tab PO NOON 02/18/16 Reported Humulin 70-30 Vial (Hum Insulin Nph/Reg Insulin Hm) 100 Unit/1 Ml Vial 15 Unit SQ BIDAC 02/18/16 Reported Sertraline Hcl 25 Mg Tablet 25 Mg PO DAILY 12/21/15 Rx Hydrocodone-Apap 7.5-325 (Hydrocodone Bit/Acetaminophen) 1 Each Tablet 1 Tab PO HS PRN 08/10/15 Reported Vitamin D2 (Ergocalciferol (Vitamin D2)) 50,000 Unit Capsule 50,000 Unit PO WEEKLY 08/10/15 Reported NEXT DOSE: PER USUAL TIME Prilosec (Omeprazole) 20 Mg Capsule.dr 1 Cap PO BID 08/10/15 Reported [place]-3 1,000 Mg Softgel ([place]-3 Fatty Acids/Fish Oil) 1 Each Capsule 1 Each PO DAILY 08/10/15 Reported Centrum Silver Tablet (Multivits-Min/Fa/Lycopene/Lut) 1 Each Tablet 1 Each PO DAILY 08/10/15 Reported Cyclobenzaprine Hcl 5 Mg Tablet 10 Mg PO TID PRN 04/15/14 Reported NEXT DOSE: WHEN NEEDED Benadryl (Diphenhydramine Hcl) 25 Mg Capsule 25 Mg PO HS 01/25/14 Reported Pravachol (Pravastatin Sodium) 40 Mg Tablet 40 Mg PO DAILY 01/25/14 Reported Potassium Chloride 10 Meq Capsule.er 10 Meq PO DAILY 01/24/14 Reported Lisinopril 10 Mg Tablet 10 Mg PO DAILY 01/24/14 Reported Imdur (Isosorbide Mononitrate) 30 Mg Tab.er.24h 30 Mg PO DAILY16 01/24/14 Reported Children's Aspirin (Aspirin) 81 Mg Tab.chew 81 Mg PO DAILY 01/24/14 Reported Comments CXR 09/14 Worsening CHF Impression . 1. Dyspnea with acute hypoxic respiratory failure with bilateral interstitial infiltrates. this is secondary to [id number] diastolic heart failure/ MR. noncontrast CT chest with mild interstitial infiltrates / basal effusions related to CHF 2. History of stage IV lung cancer with metastasis to the abdominal wall. Status post radiation. 3. History of tobacco use, suspect underlying chronic obstructive pulmonary disease. 4. Renal insufficiency. 5. Increased troponin levels. 6. 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 spoke wtih Dr Schuler add steroids cxr reviewed may need some EMMA Kim MD Sep 19, 2016 08:44
[2016-09-19] MEDS: INSULIN ASPART 300 UNITS/3 ML INSULN.PEN SQ SCH ×2 (08:51→12:22)
[2016-09-19] MEDS: INSULN ASP PRT/INSULIN ASPART 300 UNITS/3 ML INSULN.PEN. SQ SCH (08:52)
[2016-09-19] MEDS ORDERED: PRED-220 PO (09:03)
--- NOTE | 2016-09-19 10:34 | PDOC ---
PROGRESS NOTES Subjective Subjective Pt in bed resting comfortably. Denies having any chest pain or shortness of breath. States that she is having increased abdominal pain. Last BM yesterday. States that she thinks she will be discharged to rehab this afternoon. Objective Objective Vital Signs Date Time Temp Pulse Resp B/P Pulse Ox O2 Delivery O2 Flow Rate FiO2 09/19/16 08:30 Nasal Cannula 3.0 09/19/16 07:37 95 09/19/16 07:30 98.0 75 18 141/53 98.0 Intake and Output 09/19/16 07:00 Output Total 1125 ml Balance -1125 ml Output Urine Total 1125 ml # Bowel Movements 1 Physical Exam Abdomen: Normal bowel sounds, Soft, No tenderness, No hepatosplenomegaly, No masses Heart: Regular rate, Normal S1, Normal S2, No murmurs, Gallops Extremities: No clubbing, No cyanosis, No edema, Normal pulses General: Alert, Oriented X3, Cooperative, No acute distress Lungs: Clear to auscultation, Normal air movement Neck: Supple, No JVD, No thyromegaly, Other (+ bilateral carotid bruit) Skin: Other (redness to lower right ext, pain with palpation to lower left ext. , Ecchymosis to right dorsal hand) Assessment Assessment Problems Medical Problems: (1) Acute and chronic respiratory failure Status: Acute (2) Acute on chronic combined systolic and diastolic congestive heart failure Status: Acute (3) Acute on chronic renal failure Status: Acute (4) Congestive heart failure Status: Acute (5) Hyperkalemia Status: Acute (6) Hypoglycemia associated with diabetes Status: Acute Plan Plan of Care stable from a cardiac standpoint Continue with current plan of care Comment Review of Relevant I have reviewed the following items edna (where applicable) has been applied. Labs Laboratory Tests Test 09/17/16 11:16 09/17/16 16:40 09/17/16 20:42 09/18/16 07:32 Glucose (Fingerstick) 114mg/dL (70-99) 104mg/dL (70-99) 169mg/dL (70-99) 159mg/dL (70-99) Test 09/18/16 08:55 09/18/16 12:10 09/18/16 17:14 09/18/16 20:14 Sodium Level 143mmol/L (136-145) Potassium Level 4.8mmol/L (3.5-5.1) Chloride Level 103mmol/L (98-107) Carbon Dioxide Level 32mmol/L (21-32) Anion Gap 8 (6-14) Blood Urea Nitrogen 44mg/dL (7-20) Creatinine 1.3mg/dL (0.6-1.0) Estimated GFR (Cockcroft-Gault) 38.7 Glucose Level 203mg/dL (70-99) Calcium Level 8.9mg/dL (8.5-10.1) Vancomycin Level Trough 16.2mcg/mL (10.0-20.0) Vancomycin Last Dose Date 09/16/16 Vancomycin Last Dose Time 1000 Glucose (Fingerstick) 146mg/dL (70-99) 195mg/dL (70-99) 150mg/dL (70-99) Test 09/19/16 07:55 Glucose (Fingerstick) 266mg/dL (70-99) Laboratory Tests Test 09/18/16 12:10 09/18/16 17:14 09/18/16 20:14 09/19/16 07:55 Glucose (Fingerstick) 146mg/dL (70-99) 195mg/dL (70-99) 150mg/dL (70-99) 266mg/dL (70-99) Microbiology 09/12/16 Blood Culture - Final, Complete NO GROWTH AFTER 5 DAYS 09/12/16 Urine Culture - Final, Complete 09/12/16 Urine Culture Result 1 (MAMI) - Final, Complete Medications Current Medications Albuterol/ Ipratropium 3 ml 3 ml 1X ONCE NEB Last administered on 09/11/16 22 :40; Start 09/11/16 at 22:45; Stop 09/11/16 at 22:46; Status DC Levofloxacin/ Dextrose (LEVAQUIN 750mg PREMIX) 150 ml @ 100 mls/hr 1X ONCE IV Last administered on 09/12/16 04:27; Start 09/12/16 at 01:00; Stop 09/12/16 at 02:29; Status DC Albuterol/ Ipratropium (Duoneb) 3 ml PRN Q4HRS PRN NEB SOA; Start 09/12/16 at 00:45; Stop 09/12/16 at 06:00; Status DC Albuterol/ Ipratropium (Duoneb) 3 ml 1X ONCE NEB Last administered on 01:49; Start 09/12/16 at 01:30; Stop 09/12/16 at 01:31; Status DC Acetaminophen/ Hydrocodone Bitart (Lortab 5/325) 1 tab 1X ONCE PO ; Start 09/12 at 01:30; Stop 09/12/16 at 01:31; Status DC Albuterol Sulfate (Ventolin Neb Soln) 2.5 mg PRN Q4HRS PRN NEB SHORTNESS OF BREATH; Start 09/12/16 at 02:00; Stop 09/13/16 at 01:59; Status DC Acetaminophen/ Hydrocodone Bitart (Lortab 7.5/325) 1 tab PRN Q6HRS PRN PO MODERATE PAIN Last administered on 09/18/16 22:10; Start 09/12/16 at 03:45 Insulin Aspart (Novolog) 0-5 UNITS TIDWMEALS SQ Last administered on 09/16/16 08:51; Start 09/12/16 at 08:00; Stop 09/16/16 at 12:17; Status DC Dextrose 12.5 gm PRN Q15MIN PRN IV SEE COMMENTS; Start 09/12/16 at 03:45 Vancomycin HCl (Vanco Per Pharmacy) 1 each PRN DAILY PRN MC SEE COMMENTS Last administered on 09/18/16 09:57; Start 09/12/16 at 07:45; Stop 09/19/16 at 09:00 ; Status DC Albuterol/ Ipratropium (Duoneb) 3 ml RTQID NEB Last administered on 09/19/16 07:34; Start 09/12/16 at 08:00 Aspirin (Children'S Aspirin) 81 mg DAILY PO Last administered on 09/19/16 08: 33; Start 09/12/16 at 09:00 Bumetanide (Bumex) 1 mg NOON PO Last administered on 09/13/16 12:42; Start at 12:00; Stop 09/14/16 at 11:24; Status DC Diphenhydramine HCl (Benadryl) 25 mg HS PO Last administered on 09/18/16 22:09 ; Start 09/12/16 at 21:00 Acetaminophen/ Hydrocodone Bitart (Lortab 7.5/325) 1 tab PRN QHS PRN PO PAIN Last administered on 09/13/16 20:50; Start 09/12/16 at 07:45 Isosorbide Mononitrate (Imdur) 30 mg DAILY16 PO Last administered on 09/18/16 16:16; Start 09/12/16 at 16:00 Lisinopril (Prinivil) 10 mg DAILY PO ; Start 09/12/16 at 09:00; Stop 09/13/16 at 07:24; Status DC Sertraline HCl (Zoloft) 25 mg DAILY PO Last administered on 09/19/16 08:33; Start 09/12/16 at 09:00 Cyclobenzaprine HCl (Flexeril) 10 mg PRN TID PRN PO MUSCLE SPASMS; Start at 08:00 Multivitamins/ Calcium (Thera M Plus) 1 tab DAILY PO Last administered on 08:33; Start 09/12/16 at 09:00 Fish Oil (Fish Oil) 1,000 mg DAILY PO Last administered on 09/19/16 08:33; Start 09/12/16 at 09:00 Pantoprazole Sodium (Protonix) 40 mg DAILYAC PO Last administered on 09/19/16 08:33; Start 09/12/16 at 08:00 Atorvastatin Calcium 10 mg 10 mg QHS PO Last administered on 09/18/16 22:09; Start 09/12/16 at 21:00 Vancomycin HCl/ Sodium Chloride (Iv Sodium Chloride 0.9% 500ml Bag) 500 ml @ 250 mls/hr 1X ONCE IV Last administered on 09/12/16 08:19; Start 09/12/16 at 08:30; Stop 09/12/16 at 10:29; Status DC Furosemide (Lasix) 40 mg 1X ONCE IVP Last administered on 09/12/16 11:26; Start 09/12/16 at 11:30; Stop 09/12/16 at 11:31; Status DC Vancomycin HCl 1 each 1X ONCE MC ; Start 09/14/16 at 08:00; Stop 09/14/16 at 08 :01; Status DC Sodium Polystyrene Sulfonate (Kayexalate) 15 gm 1X ONCE PO Last administered on 09/13/16 07:59; Start 09/13/16 at 07:30; Stop 09/13/16 at 07:31; Status DC Furosemide (Lasix) 40 mg 1X ONCE IVP Last administered on 09/13/16 07:59; Start 09/13/16 at 07:30; Stop 09/13/16 at 07:31; Status DC Nystatin 1 yusuf 1 yusuf BID TP Last administered on 09/19/16 08:33; Start at 09:00 Vancomycin HCl/ Sodium Chloride (Iv Sodium Chloride 0.9% 250ml) 250 ml @ 167 mls/hr Q48H IV Last administered on 09/18/16 10:17; Start 09/14/16 at 09:30; Stop 09/19/16 at 09:00; Status DC Bumetanide (Bumex) 2 mg NOON PO Last administered on 09/16/16 12:25; Start at 12:00; Stop 09/16/16 at 15:44; Status DC Prednisone (Prednisone) 60 mg 1X ONCE PO Last administered on 09/15/16 10:06 ; Start 09/15/16 at 09:30; Stop 09/15/16 at 09:31; Status DC Bumetanide (Bumex) 2 mg 1X STAT IV Last administered on 09/15/16 09:37; Start 09/15/16 at 09:03; Stop 09/15/16 at 09:10; Status DC Furosemide (Lasix) 40 mg 1X ONCE IVP Last administered on 09/15/16 12:17; Start 09/15/16 at 12:00; Stop 09/15/16 at 12:01; Status DC Guaifenesin (Robitussin Dm) 10 ml PRN Q8HRS PRN PO COUGH; Start 09/15/16 at 15: 30; Stop 09/15/16 at 16:17; Status DC Guaifenesin (Robitussin Dm) 5 ml PRN Q8HRS PRN PO COUGH Last administered on 13:01; Start 09/15/16 at 16:30 Insulin Aspart (Novolog) 0-5 UNITS TIDWMEALHC SQ Last administered on 08:51; Start 09/16/16 at 12:30 Insulin Aspart Prota 70%/Aspart 30% (Novolog Mix 70-30) 10 units BIDWMEALS SQ Last administered on 09/19/16 08:52; Start 09/16/16 at 17:00 Acetaminophen/ Hydrocodone Bitart (Lortab 7.5/325) 2 tab PRN Q6HRS PRN PO PAIN Last administered on 09/16/16 20:31; Start 09/16/16 at 13:45 Furosemide (Lasix) 40 mg DAILY IVP Last administered on 09/19/16 08:33; Start 09/16/16 at 16:30; Stop 09/19/16 at 09:00; Status DC Vancomycin HCl 1 each 1X ONCE MC ; Start 09/18/16 at 09:00; Stop 09/19/16 at 09 :00; Status DC Polyethylene Glycol (miraLAX PACKET) 17 gm DAILY PO Last administered on 08:33; Start 09/18/16 at 09:00 Bisacodyl (Dulcolax Supp) 10 mg PRN DAILY PRN PA CONSTIPATION Last administered on 09/18/16 09:27; Start 09/18/16 at 08:45 Active Scripts Active Sertraline Hcl 25 Mg Tablet 25 Mg PO DAILY Reported Bactrim 400-80 Mg Tablet (Sulfamethoxazole/Trimethoprim) 1 Each Tablet 1 Tab PO BID Bactrim 400-80 Mg Tablet (Sulfamethoxazole/Trimethoprim) 1 Each Tablet 1 Tab PO BID Bumetanide 1 Mg Tablet 1 Tab PO NOON Humulin 70-30 Vial (Hum Insulin Nph/Reg Insulin Hm) 100 Unit/1 Ml Vial 15 Unit SQ BIDAC Hydrocodone-Apap 7.5-325 (Hydrocodone Bit/Acetaminophen) 1 Each Tablet 1 Tab PO HS PRN Vitamin D2 (Ergocalciferol (Vitamin D2)) 50,000 Unit Capsule 50,000 Unit PO WEEKLY NEXT DOSE: PER USUAL TIME Prilosec (Omeprazole) 20 Mg Capsule.dr 1 Cap PO BID [place]-3 1,000 Mg Softgel ([place]-3 Fatty Acids/Fish Oil) 1 Each Capsule 1 Each PO DAILY Centrum Silver Tablet (Multivits-Min/Fa/Lycopene/Lut) 1 Each Tablet 1 Each PO DAILY Cyclobenzaprine Hcl 5 Mg Tablet 10 Mg PO TID PRN NEXT DOSE: WHEN NEEDED Benadryl (Diphenhydramine Hcl) 25 Mg Capsule 25 Mg PO HS Pravachol (Pravastatin Sodium) 40 Mg Tablet 40 Mg PO DAILY Potassium Chloride 10 Meq Capsule.er 10 Meq PO DAILY Lisinopril 10 Mg Tablet 10 Mg PO DAILY Imdur (Isosorbide Mononitrate) 30 Mg Tab.er.24h 30 Mg PO DAILY16 Children's Aspirin (Aspirin) 81 Mg Tab.chew 81 Mg PO DAILY Vitals/I & O Vital Sign - Last 24 Hours 09/18/16 09/18/16 09/18/16 09/18/16 11:02 11:47 15:09 15:13 Temp 98.2 97.9 98.2 97.9 Pulse 76 74 Resp 18 18 B/P 119/39 124/29 Pulse Ox 91 93 O2 Delivery Nasal Cannula Nasal Cannula Nasal Cannula Nasal Cannula O2 Flow Rate 3.0 3.0 3.0 3.0 09/18/16 09/18/16 09/18/16 09/18/16 16:16 16:19 17:19 19:00 Temp 98.3 98.3 Pulse 74 67 Resp 20 20 20 B/P 124/29 116/50 Pulse Ox 95 96 O2 Delivery Nasal Cannula Nasal Cannula O2 Flow Rate 2.0 09/18/16 09/18/16 09/18/16 09/18/16 19:17 20:00 22:10 23:00 Temp 97.4 97.4 Pulse 69 Resp 20 B/P 121/49 Pulse Ox 96 95 O2 Delivery Nasal Cannula Nasal Cannula Nasal Cannula Nasal Cannula O2 Flow Rate 2.0 2.0 2.0 09/18/16 09/19/16 09/19/16 09/19/16 23:10 03:11 07:30 07:37 Temp 97.7 98.0 97.7 98.0 Pulse 64 75 Resp 20 18 B/P 116/47 141/53 Pulse Ox 95 98 96 95 O2 Delivery Nasal Cannula Nasal Cannula Nasal Cannula Nasal Cannula O2 Flow Rate 2.0 3.0 2.0 09/19/16 08:30 O2 Delivery Nasal Cannula O2 Flow Rate 3.0 Intake and Output 09/18/16 09/18/16 09/19/16 15:00 23:00 07:00 Output Total 725 ml 400 ml Balance -725 ml -400 ml YAYA,CELSA D MD Sep 19, 2016 10:34
[2016-09-19 11:15] VITALS: BP 138/56
--- NOTE | 2016-09-19 12:37 | PDOC ---
SUBJECTIVE ROS GUME/ C KDIII doing OK. No complaitns CVS: no Orthopnea, no CP RESP: no SOB, no RUTLEDGE GI: no Nausea, no Vomiting : no Dysuria, no Urgency OBJECTIVE Vital Signs Vital Signs Date Time Temp Pulse Resp B/P Pulse Ox O2 Delivery O2 Flow Rate FiO2 09/19/16 11:15 97.3 71 16 138/56 96 Nasal Cannula 3.0 97.3 I & 0 Intake and Output 09/19/16 07:00 Output Total 1125 ml Balance -1125 ml Output Urine Total 1125 ml # Bowel Movements 1 PHYSICAL EXAM Physical Exam GEN: Awake, Oriented x 3, In no distress EYES: Vision Unchanged, Conjunctiva Normal EN: No EN Drainage, Mucous Membranes moist NECK: no JVD, min JVP, Supple, no Thyromegaly CVS: S1S2, ? Murmur, No Gallop, No Rub,no Edema RESP: rare Rales, no Rhonchi,no Acc. Muscle Use GI: BS + ve, NO Bruit, Non Tender, Non Distended : no CVA tenderness, no Suprapubic Tenderness DIAGNOSIS/ASSESSMENT GUME almost resolved ; better now and anticipate it will stay OK off of Bactrim. Current fluid and E-lyte status does not necessitate emergent need for dialysis. CKD III - back to baseline creat of 1.3 HTN: Current BP meds as reviewed. See orders for changes. CHF on CXR - clinically appears compensated; Not sure if some of this represents her Lung Ca or Fluid perse. Diuresis per Dr Loomis Discussed Plan of Care with family at bedside COMMENT/RELEVANT DATA Meds Current Medications Medications (Trade) Dose Ordered Sig/Leonard Start Time Stop Time Status Last Admin Dose Admin Acetaminophen/ Hydrocodone Bitart (Lortab 5/325) 1 tab 1X ONCE 09/12/16 01:30 09/12/16 01:31 DC Acetaminophen/ Hydrocodone Bitart (Lortab 7.5/325) 2 tab PRN Q6HRS PRN 09/16/16 13:45 09/16/16 20:31 2 TAB Albuterol Sulfate (Ventolin Neb Soln) 2.5 mg PRN Q4HRS PRN 09/12/16 02:00 09/13/16 01:59 DC Albuterol/ Ipratropium (Duoneb) 3 ml RTQID 09/12/16 08:00 09/19/16 12:00 3 ML Albuterol/ Ipratropium 3 ml 3 ml 1X ONCE 09/11/16 22:45 09/11/16 22:46 DC 09/11/16 22:40 3 ML Aspirin (Children'S Aspirin) 81 mg DAILY 09/12/16 09:00 09/19/16 08:33 81 MG Atorvastatin Calcium 10 mg 10 mg QHS 09/12/16 21:00 09/18/16 22:09 10 MG Bisacodyl (Dulcolax Supp) 10 mg PRN DAILY PRN 09/18/16 08:45 09/18/16 09:27 10 MG Bumetanide (Bumex) 2 mg 1X STAT 09/15/16 09:03 09/15/16 09:10 DC 09/15/16 09:37 2 MG Cyclobenzaprine HCl (Flexeril) 10 mg PRN TID PRN 09/12/16 08:00 Dextrose 12.5 gm PRN Q15MIN PRN 09/12/16 03:45 Diphenhydramine HCl (Benadryl) 25 mg HS 09/12/16 21:00 09/18/16 22:09 25 MG Fish Oil (Fish Oil) 1,000 mg DAILY 09/12/16 09:00 09/19/16 08:33 1,000 MG Furosemide (Lasix) 40 mg DAILY 09/16/16 16:30 09/19/16 09:00 DC 09/19/16 08:33 40 MG Guaifenesin (Robitussin Dm) 5 ml PRN Q8HRS PRN 09/15/16 16:30 09/17/16 13:01 5 ML Insulin Aspart (Novolog) 0-5 UNITS TIDWMEALHC 09/16/16 12:30 09/19/16 12:22 2 UNITS Insulin Aspart Prota 70%/Aspart 30% (Novolog Mix 70-30) 10 units BIDWMEALS 09/16/16 17:00 09/19/16 08:52 10 UNITS Isosorbide Mononitrate (Imdur) 30 mg DAILY16 09/12/16 16:00 09/18/16 16:16 30 MG Levofloxacin/ Dextrose (LEVAQUIN 750mg PREMIX) 150 ml @ 100 mls/hr 1X ONCE 09/12/16 01:00 09/12/16 02:29 DC 09/12/16 04:27 100 MLS/HR Lisinopril (Prinivil) 10 mg DAILY 09/12/16 09:00 09/13/16 07:24 DC Multivitamins/ Calcium (Thera M Plus) 1 tab DAILY 09/12/16 09:00 09/19/16 08:33 1 TAB Nystatin 1 yusuf 1 yusuf BID 09/14/16 09:00 09/19/16 08:33 1 YUSUF Pantoprazole Sodium (Protonix) 40 mg DAILYAC 09/12/16 08:00 09/19/16 08:33 40 MG Polyethylene Glycol (miraLAX PACKET) 17 gm DAILY 09/18/16 09:00 09/19/16 08:33 17 GM Prednisone (Prednisone) 60 mg 1X ONCE 09/15/16 09:30 09/15/16 09:31 DC 09/15/16 10:06 60 MG Sertraline HCl (Zoloft) 25 mg DAILY 09/12/16 09:00 09/19/16 08:33 25 MG Sodium Polystyrene Sulfonate (Kayexalate) 15 gm 1X ONCE 09/13/16 07:30 09/13/16 07:31 DC 09/13/16 07:59 15 GM Vancomycin HCl 1 each 1X ONCE 09/18/16 09:00 09/19/16 09:00 DC Vancomycin HCl (Vanco Per Pharmacy) 1 each PRN DAILY PRN 09/12/16 07:45 09/19/16 09:00 DC 09/18/16 09:57 1 EACH Vancomycin HCl/ Sodium Chloride (Iv Sodium Chloride 0.9% 250ml) 250 ml @ 167 mls/hr Q48H 09/14/16 09:30 09/19/16 09:00 DC 09/18/16 10:17 167 MLS/HR Vancomycin HCl/ Sodium Chloride (Iv Sodium Chloride 0.9% 500ml Bag) 500 ml @ 250 mls/hr 1X ONCE 09/12/16 08:30 09/12/16 10:29 DC 09/12/16 08:19 250 MLS/HR Lab Laboratory Tests Test 09/18/16 17:14 09/18/16 20:14 09/19/16 07:55 09/19/16 11:02 Glucose (Fingerstick) 195mg/dL (70-99) 150mg/dL (70-99) 266mg/dL (70-99) 199mg/dL (70-99) COMPA GANDHI MD Sep 19, 2016 12:37
[2016-09-19] MEDS: HYDROCODONE/APAP 7.5/325MG TABLET. PO PRN (14:34)
== END 2016-09-19 15:45 | DRG 682 ==
LOC: ER 22:23 → 5 NORTH 23:32
PROVIDERS: ADMIT Family Medicine; ATTEND Family Medicine
DX: N17.9 Acute kidney failure, unspecified (principal); J96.21 Acute and chronic respiratory failure with hypoxia; I50.43 Acute on chronic combined systolic (congestive) and diastolic (congestive) heart failure; L03.115 Cellulitis of right lower limb; J44.1 Chronic obstructive pulmonary disease with (acute) exacerbation; I13.0 Hypertensive heart and chronic kidney disease with heart failure and stage 1 through stage 4 chronic kidney disease, or unspecified chronic kidney disease; C34.11 Malignant neoplasm of upper lobe, right bronchus or lung; L03.116 Cellulitis of left lower limb; C34.90 Malignant neoplasm of unspecified part of unspecified bronchus or lung; C79.2 Secondary malignant neoplasm of skin; E11.22 Type 2 diabetes mellitus with diabetic chronic kidney disease; E11.51 Type 2 diabetes mellitus with diabetic peripheral angiopathy without gangrene; E11.649 Type 2 diabetes mellitus with hypoglycemia without coma; E78.5 Hyperlipidemia, unspecified; E87.5 Hyperkalemia; H91.90 Unspecified hearing loss, unspecified ear; I25.10 Atherosclerotic heart disease of native coronary artery without angina pectoris; I27.2 Other secondary pulmonary hypertension; I34.0 Nonrheumatic mitral (valve) insufficiency; K21.9 Gastro-esophageal reflux disease without esophagitis; K59.00 Constipation, unspecified; I87.2 Venous insufficiency (chronic) (peripheral); I49.5 Sick sinus syndrome; M54.9 Dorsalgia, unspecified; N18.3 Chronic kidney disease, stage 3 (moderate); Z80.1 Family history of malignant neoplasm of trachea, bronchus and lung; Z80.42 Family history of malignant neoplasm of prostate; Z87.891 Personal history of nicotine dependence; Z88.0 Allergy status to penicillin; Z90.710 Acquired absence of both cervix and uterus; Z92.3 Personal history of irradiation; Z95.1 Presence of aortocoronary bypass graft; Z90.49 Acquired absence of other specified parts of digestive tract; Z98.890 Other specified postprocedural states; Z95.0 Presence of cardiac pacemaker; Z88.6 Allergy status to analgesic agent; Z88.5 Allergy status to narcotic agent; Z88.8 Allergy status to other drugs, medicaments and biological substances
CPT/HCPCS: 36415; 71010; 71250; 73030; 73630; 78582; 80048; 80053; 80202; 81001; 82947; 83605; 83880; 84484; 85027; 85379; 87040; 87086; 93005; 93306; 93970; 94250; 94640; 94760; 96374; A9540; A9558; J1815; J1940; J1956; J3370; J3490; J7040; J7050; J7512; J7620; Q0163; 97110; 97530; 97535; 99285-25; J7030